=== PATIENT | male | born 1935 | race Two or more races ===

== ENCOUNTER 2019-03-09 23:29 | Emergency (ER) | payer MEDICARE, OTHER ==
[~2019-03-09] VITALS: Ht 170.2 cm; Wt 79.8 kg
[~2019-03-09 23:29] MED LIST: AMYL1CAP58 PO; CLOP75TA15 PO; DEXL60CA3 PO; DULO30CA2 PO; FLUT1DIS3 IH; MEMA21CA PO; SOLI10TA2 PO; TAMS0.4C34 PO; TIOT18CA3 IH; VALS160T2 PO
--- NOTE | 2019-03-09 23:35 | NUR ---
PT SUSANNAH FROM HOME FOR RIGHT FLANK PAIN X 2 DAYS. PT AOX3. FRENCH SPEAKING. NAD NOTED. RESP EVEN AND UNLABORED. PT ON MONITOR IN BED 4. WILL CONTINUE TO MONITOR.
[2019-03-10] MEDS ORDERED: ONDANSETRON HCL/PF 4 MG/2 ML VIAL IVP ONE
[2019-03-10] MEDS ORDERED: KETOROLAC TROMETHAMINE INJ 30 MG/ML VIAL IV ONE
[2019-03-10] MEDS ORDERED: IV NS 0.9% 500 ML BAG IV ONE
[2019-03-10] MEDS ORDERED: ONDANSETRON HCL/PF 4 MG/2 ML VIAL ONE (00:04)
[2019-03-10] MEDS ORDERED: KETOROLAC TROMETHAMINE 15 MG/ML VIAL ONE (00:04)
[2019-03-10] MEDS ORDERED: FAMOTIDINE/PF INJ 20 MG/2 ML VIAL IV ONE ×2 (00:04)
--- NOTE | 2019-03-10 00:05 | NUR ---
IV INITIATED. BLOOD DRAWN AND GIVEN TO LAB.
[2019-03-10 00:08] LABS: BASOPHILS % (AUTO) 0.2 % (0.0-2.0); EOSINOPHILS % (AUTO) 0.5 % (0.0-6.0); HEMATOCRIT 41 % (39-51); HEMOGLOBIN 13.9 g/dL (13.5-17.5); LYMPHOCYTES % (AUTO) 10.5 % (20.0-44.0); MEAN CORPUSCULAR HGB CONC 34 g/dl (31.0-36.0); MEAN CORPUSCULAR VOLUME 88 fL (80-96); MONOCYTES # (AUTO) 0.7 /CMM (0.1-1.30); MONOCYTES % (AUTO) 7.9 % (2.0-12.0); NEUTROPHILS # (AUTO) 7.6 /CMM (1.8-8.9); NEUTROPHILS % (AUTO) 80.9 % (43.0-81.0); PLATELET COUNT (AUTO) 131 /CMM (150-450); RED BLOOD CELL COUNT(AUTO) 4.68 MIL/uL (4.5-6.0); WHITE BLOOD COUNT (AUTO) 9.4 K/uL (4.3-11.0)
[2019-03-10 00:10] LABS: CALCIUM, SERUM 8.7 mg/dL (8.5-10.1); CARBON DIOXIDE 29 mmol/L (21-32); CHLORIDE 106 mmol/L (98-107); CREATININE 1.2 mg/dL (0.6-1.3); GLUCOSE 99 mg/dL (74-106); POTASSIUM 4.1 mmol/L (3.5-5.1); SODIUM SERUM 142 mmol/L (136-145); UREA NITROGEN, BLOOD 18 mg/dL (7-18)
[2019-03-10 00:15] LABS: ALANINE AMINOTRANSFERASE 14 U/L (12-78); ALBUMIN 3.3 g/dL (3.4-5.0); ALKALINE PHOSPHATASE 90 U/L (46-116); ASPARTATE AMINOTRANSFERASE 14 U/L (15-37); BILIRUBIN,DIRECT 0.1 mg/dL (0.0-0.2); BILIRUBIN,TOTAL 0.5 mg/dL (0.2-1.0); LIPASE 39 U/L (73-393); TOTAL PROTEIN, SERUM 6.6 g/dL (6.4-8.2)
[2019-03-10] MEDS ORDERED: IOHEXOL-300 100 ML VIAL IV ONE (00:19)
--- NOTE | 2019-03-10 01:22 | NUR ---
Patient is resting comfortably in bed with eyes closed. Easily aroused. VSS
[2019-03-10 01:28] VITALS: BP 128/62
[2019-03-10 02:03] LABS: APPEARANCE,URINE CLEAR (CLEAR); BILIRUBIN,URINE NEGATIVE (NEGATIVE); BLOOD, URINE 1+ Ery/uL (NEGATIVE); COLOR,URINE YELLOW (YELLOW); KETONES,URINE NEGATIVE (NEGATIVE); LEUKOCYTE ESTERASE ,URINE NEGATIVE (NEGATIVE); NITRITE, URINE NEGATIVE (NEGATIVE); PROTEIN,URINE NEGATIVE (NEGATIVE); UGLUCOSE NEGATIVE (NEGATIVE); UROBILINOGEN,URINE 0.2 EU/dL (0.2)
[2019-03-10 02:04] LABS: BACTERIA,URINE None seen /HPF (None Seen); SQUAMOUS EPITHELIAL CELL,UR Few /HPF (None Seen); WBC,URINE 0-2 /HPF (0-3)
--- NOTE | 2019-03-10 04:01 | NUR ---
IV removed. Catheter intact and site benign. Pressure and 4x4 applied to site. No bleeding noted.Patient discharged to home in stable condition. Written and verbal after care instructions given. Patient verbalizes understanding of instruction. PT AMBULATORY WITH STEADY GAIT. TAXI VOUCHER PROVIDED.
== END 2019-03-10 04:08 | disposition home or self-care (01) ==
LOC: ER 23:36
DX: N13.2 Hydronephrosis with renal and ureteral calculous obstruction (principal); I10 Essential (primary) hypertension; Z90.89 Acquired absence of other organs; Z98.890 Other specified postprocedural states; Z60.2 Problems related to living alone
CPT/HCPCS: 36415; 74177; 80048; 80076; 81001; 83605; 83690; 84484; 85025; 96374; 96375; 99284; J1885; J2405; J3490; J7040; Q9967; 81000-TC

== ENCOUNTER 2019-11-02 10:03 | Inpatient (IN) | payer MEDICARE, OTHER ==
[~2019-11-02] VITALS: Ht 165.1 cm; Wt 99.8 kg
--- NOTE | 2019-11-02 10:15 | NUR ---
patient came in to ther er [id number] from home c/o difficulty of breathing, 02 desat on room air. Recently dicharge from different hospital for kidney infection. Kept comfortable, connected to the monitor and pulse ox. Will continue to monitor accordingly.
[2019-11-02 10:33] LABS: BASOPHILS % (AUTO) 0.2 % (0.0-2.0); HEMATOCRIT 43 % (39-51); LYMPHOCYTES # (AUTO) 0.2 /CMM (0.8-4.8); LYMPHOCYTES % (AUTO) 2.5 % (20.0-44.0); MEAN CORPUSCULAR HGB CONC 33 g/dl (31.0-36.0); MEAN CORPUSCULAR VOLUME 88 fL (80-96); MONOCYTES # (AUTO) 0.5 /CMM (0.1-1.30); MONOCYTES % (AUTO) 5.3 % (2.0-12.0); NEUTROPHILS # (AUTO) 8.9 /CMM (1.8-8.9); PLATELET COUNT (AUTO) 266 /CMM (150-450); RED BLOOD CELL COUNT(AUTO) 4.85 MIL/uL (4.5-6.0); WHITE BLOOD COUNT (AUTO) 9.6 K/uL (4.3-11.0)
[2019-11-02 10:43] LABS: CALCIUM, SERUM 8.2 mg/dL (8.5-10.1); CARBON DIOXIDE 23 mmol/L (21-32); CHLORIDE 99 mmol/L (98-107); CREATININE 0.7 mg/dL (0.6-1.3); GLUCOSE 104 mg/dL (74-106); POTASSIUM 3.6 mmol/L (3.5-5.1); SODIUM SERUM 135 mmol/L (136-145); UREA NITROGEN, BLOOD 21 mg/dL (7-18)
[2019-11-02 10:57] LABS: ALANINE AMINOTRANSFERASE 24 U/L (12-78); ALBUMIN 1.9 g/dL (3.4-5.0); ALKALINE PHOSPHATASE 76 U/L (46-116); ASPARTATE AMINOTRANSFERASE 49 U/L (15-37); B-TYPE NATRIURETIC PEPTIDE 838 PG/ML (0-125); BILIRUBIN,DIRECT 0.2 mg/dL (0.0-0.2); BILIRUBIN,TOTAL 0.9 mg/dL (0.2-1.0); TOTAL PROTEIN, SERUM 6.8 g/dL (6.4-8.2)
[2019-11-02] MEDS ORDERED: CLOP75TA15 PO (11:00)
[2019-11-02] MEDS ORDERED: FLUT1DIS3 IH (11:00)
[2019-11-02] MEDS ORDERED: TAMS-12 PO (11:00)
[2019-11-02] MEDS ORDERED: ATOR10TA PO (11:00)
[2019-11-02] MEDS ORDERED: OLME5TAB6 PO (11:00)
--- NOTE | 2019-11-02 11:01 | NUR ---
DIRECTOR INSURANCE/MED RECON. PATIENT UNABLE TO PROVIDE COMPLETE HOME MEDICATION INFORMATION. PCP AND PHARMACY OF CHOICE ARE BOTH CLOSED ON THE WEEKEND. PER PATIENT "I LIVE ALONE, I DON'T TAKE ANY MEDICINE. ONLY ANTIBIOTIC". PATIENT UNALE TO PROVIDE ANY INFO RE: ANTIBIOTIC.
[2019-11-02 11:04] LABS: ABG BASE EXCESS 1.1 mmol/L; ABG OXYGEN SATURATION 91.3 % (92.0-98.5); ABG PCO2 28.6 mmHg (35.0-45.0); ABG PH 7.521 (7.350-7.450); ABG PO2 60.1 mmHg (75.0-100.0); AaDO2 192.2 mmHg; COHb 1.4 % (0.5-1.5); SITE, ABG Right Radial; VENT MODE, BG 5L NC
[2019-11-02] MEDS ORDERED: MAG HYDROX/AL HYDROX/SIMETH 30 ML UDC PO PRN (11:30)
[2019-11-02] MEDS ORDERED: ONDANSETRON HCL/PF 4 MG/2 ML VIAL IVP PRN (11:30)
[2019-11-02] MEDS ORDERED: MAGNESIUM HYDROXIDE 30 ML UDC PO PRN (11:30)
[2019-11-02] MEDS ORDERED: HYDROCODONE/APAP 5/325MG 1 EACH TABLET PO PRN (11:30)
[2019-11-02] MEDS ORDERED: ALBUTEROL SULFATE 8 GM HFA.AER.AD IH PRN (12:00)
[2019-11-02 13:06] LABS: C-REACTIVE PROTEIN 39.2 mg/dL (0.0-0.9)
--- NOTE | 2019-11-02 13:12 | NUR ---
NURSING SUP GAVE TELE ROOM 119-2.
--- NOTE | 2019-11-02 13:16 | NUR ---
report given to Estiven DOZIER for clementine.
--- NOTE | 2019-11-02 13:35 | NUR ---
wheeled patient via gurney accompanied by RN and emt in no distress. RN at bedside to assume care.
--- NOTE | 2019-11-02 13:55 | NUR ---
PODIATRY TEACHERWIRE WHEELER NOTE PATIENT ARRIVED BY GURCLEARWATER AND AMBULATORY WITH ASSISTANCE TO BED, WITH WEAK GAIT. PATIENT IN NO ACUTE DISTRESS. NO SOB NOTED. PATIENT BREATHING IS EVEN AND UNLABORED. PATIENT ON CARDIAC MONITORING READING SINUS TACHYCARDIA HR 84 WITH BBB AND PVC. PATIENT ON OXYGEN NC 5 L SATURATING 91% SPO2. PATIENT TEMPERATURE 99.2, TYLENOL PRN GIVEN AND IMPLEMENTED COOLING MEASURES. PATIENT BED ALARM IS ON. PATIENT ISOLATION PRECAUTIONS MAINTAINED. PATIENT STATES NO PAIN AT THIS TIME. PATIENT HOB IS ELEVATED. PATIENT BED IS LOCKED AND IN LOWEST POSITION. CALL LIGHT WITHIN REACH. WILL CONTINUE TO MONITOR. DR. QUIÑONEZ MADE AWARE AND ORDERS PUT IN BY . Addendum: 11/02/19 at 1857 by JANELLE BATES RN PODIATRY TEACHERWIRE WHEELER NOTE PATIENT ARRIVED BY RCLEARWATER AND AMBULATORY WITH ASSISTANCE TO BED, WITH WEAK GAIT. PATIENT IN NO ACUTE DISTRESS. NO SOB NOTED. PATIENT BREATHING IS EVEN AND UNLABORED. PATIENT ON CARDIAC MONITORING READING SINUS RHYTHM HR 84 WITH BBB AND PVC. PATIENT ON OXYGEN NC 5 L SATURATING 91% SPO2. PATIENT TEMPERATURE 99.2, TYLENOL PRN GIVEN AND IMPLEMENTED COOLING MEASURES. PATIENT BED ALARM IS ON. PATIENT ISOLATION PRECAUTIONS MAINTAINED. PATIENT STATES NO PAIN AT THIS TIME. PATIENT HOB IS ELEVATED. PATIENT BED IS LOCKED AND IN LOWEST POSITION. CALL LIGHT WITHIN REACH. WILL CONTINUE TO MONITOR. DR. QUIÑONEZ MADE AWARE AND ORDERS PUT IN BY .
[2019-11-02] MEDS: ACETAMINOPHEN 325 MG TABLET PO PRN (14:17)
[2019-11-02] MEDS: ATORVASTATIN 10 MG TABLET PO SCH (14:17)
[2019-11-02] MEDS: CLOPIDOGREL BISULFATE 75 MG TABLET PO SCH (14:17)
[2019-11-02] MEDS: AZITHROMYCIN 500 MG in IV D5W 250 ML IV SCH (14:59)
[2019-11-02] MEDS ORDERED: CEFTRIAXONE 1 G in IV D5W 50 ML IV SCH (15:00)
[2019-11-02 16:00] VITALS: BP 139/74
[2019-11-02] MEDS: FLUTICASONE/VILANTEROL 1 EACH BLST.W.DEV IH SCH (16:32)
[2019-11-02] MEDS ORDERED: CEFEPIME 1 GM in IV NS 0.9% 50 ML IV SCH (17:30)
--- NOTE | 2019-11-02 17:48 | NUR ---
TIMEKEEPING SUPERVISOR NOTE PER PHARMACY REQUESTING EKG, PATIENT WITHOUT BASELINE EKG. SPOKE WITH DR. QUIÑONEZ. PER MD DAVENPORT FOR NEW ORDER FOR EKG.
[2019-11-02] MEDS ORDERED: VANCOMYCIN 0.75 GM in IV D5W 250 ML IV ONE (18:00)
[2019-11-02] MEDS: HYDROXYCHLOROQUINE 200 MG TABLET PO SCH (18:19)
--- NOTE | 2019-11-02 18:49 | NUR ---
OCC THER CLOSING NOTE PATIENT IN BED RESTING COMFORTABLY. PATIENT IN NO ACUTE DISTRESS. NO SOB NOTED. PATIENT BREATHING IS EVEN AND UNLABORED. PATIENT BREATHING ON OXYGEN NC 5L SATURATING 92% SPO2. PATIENT ON CARDIAC MONITORING READING SINUS RHYTHM HR 89, WITH PVC AND BBB. PATIENT NEEDS AND CONCERNS ADDRESSED. PATIENT BED ALARM IS ON. PATIENT HOB IS ELEVATED. SAFETY PRECAUTIONS IN PLACE. ONCE VANCOMYCIN IS FINISHED INFUSING, ENDORSED FOR MEDTRONICS TECHNICIAN RN TO ADMINISTER MAXIPIME 1900 DOSE. PATIENT BED IS LOCKED AND IN LOWEST POSITION. CALL LIGHT WITHIN REACH. WILL ENDORSE CARE TO PM SHIFT FOR HAO.
[2019-11-02] MEDS ORDERED: FEE PK DOSING 1 MIN EA MC ONE (19:38)
--- NOTE | 2019-11-02 19:38 | NUR ---
TELE/RN OPENING NOTES PATIENT RESTING IN BED COMFORTABLY; BREATHING EVEN AND UNLABORED, PATIENT TOLERATING 5L NC. WILL CONTINUE TO MONITOR; TELE MONITOR READING SR 80S HR WITH BBB AND PVCS. R HAND #18 INTACT AND PATENT; FLUSHING WELL, NO S/S OF INFILTRATION NOTED; SAFETY PRECAUTIONS IMPLEMENTED; BED LOCKED IN LOW POSITION, SIDE RAILS X2, CALL LIGHT WITHIN REACH, WILL CONTINUE TO MONITOR
[2019-11-02 20:00] VITALS: BP 122/74
--- NOTE | 2019-11-02 20:06 | NUR ---
TELE/RN NOTES MAXIPIME DUE AT 1900, AWARE; PER DAY SHIFT, ADMIN MED AFTER VANCO IS COMPLETED
--- NOTE | 2019-11-02 20:30 | NUR ---
TELE/ RN NOTES URINE SPECIMEN COLLECTED; LAB AWARE;
[2019-11-02] MEDS: CEFEPIME 2 GM in IV D5W 100 ML IV SCH (20:31)
[2019-11-02 20:33] VITALS: BP 122/74
[2019-11-02] MEDS: TAMSULOSIN 0.4 MG CAP.SR.24H PO SCH (21:41)
[2019-11-03] VITALS (78 sets, daily range): BP systolic 58–163; BP diastolic 38–105
[2019-11-03 00:55] LABS: APPEARANCE,URINE CLEAR (CLEAR); BILIRUBIN,URINE NEGATIVE (NEGATIVE); BLOOD, URINE TRACE Ery/uL (NEGATIVE); COLOR,URINE YELLOW (YELLOW); KETONES,URINE 15 (NEGATIVE); LEUKOCYTE ESTERASE ,URINE NEGATIVE (NEGATIVE); NITRITE, URINE NEGATIVE (NEGATIVE); PH,URINE 6.5 (5.0-8.0); PROTEIN,URINE 100 mg/dl (NEGATIVE); UGLUCOSE NEGATIVE (NEGATIVE)
[2019-11-03 01:34] LABS: BACTERIA,URINE Few /HPF (None Seen); RBC,URINE 0-2 /HPF (0-2); SQUAMOUS EPITHELIAL CELL,UR Few /HPF (None Seen); WBC,URINE 0-2 /HPF (0-3); YEAST,URINE Few /HPF (None Seen)
--- NOTE | 2019-11-03 04:29 | NUR ---
TELE/RN NOTES PATIENT HAS SOB; BREATHING LABORED; ON 5L NC, PATIENT IS AWAKE, A/O X2, PATIENT REQUESTING JUICE/WATER. RAPID RESPONSE CALLED; OXYGEN SATURATION CONTINUOUSLY DROPPING AND UNSTABLE; 78%. STAT ABGS ORDERED; PATIENT TRANSFERRED TO ICU PER ACLS PROTOCOL TO ROOM 259, ACCOMPANIED BY [facility] STAFF AND REPORT GIVEN. Addendum: 11/03/19 at 0442 by JORGE GAVIN RN DOING ROUNDS AT 0400, NOTED PATIENT HAD SOB; BREATHING LABORED; PATIENT ON 5L NC, PATIENT IS AWAKE, A/OX2 AND REQUESTING WATER; VITALS STABLE; O2 SAT 78%, AND CONTINUALLY DROPPING; RAPID RESPONSE CALLED 404, ARTURO NOTIFIED; STAT ABGS ORDERED; PATIENT TRANSFERRED TO ICU VIA ACLS PROTOCOL AND ACCOMPANIED BY [facility] STAFF TO ROOM 259; CHARGE NURSE INFORMED FAMILY OF TRANSFER;
--- NOTE | 2019-11-03 04:45 | NUR ---
pt intubated by er physician due to increased work of breathing and decreased spo2. ett 7.5@24cm. pt alert and responsive to questions. ett secure via anchorfast. bilateral chest rise, positive color change, and mist in ett tube spo2 increased post intubation to 100% with ambu bag ventilation with bacterial/viral filter on exaltation port. pt placed on vent settings ac 20 450 80% +5. abg to follow. Addendum: 11/03/19 at 0525 by GUZMAN FRAZIER RT Amended: Links added.
[2019-11-03] MEDS: PROPOFOL 100 ML IV PRN ×4 (04:49→22:13)
--- NOTE | 2019-11-03 05:00 | NUR ---
NUCLEAR EQUIPMENT TEST ENGINEER OPENING NOTES, PATIENT CODED IN [facility] AND WAS TRANSFERRED TO ICU FOR INTUBATION, STRICTLY ON DROPLET PRECDAUTION FOR POSS. COVID. INTUBATED BY ER JAMES WARNER. WITH ETT 7.5 AND 25 CM AT LIP. AND VENT SETTING AC 20 TV 450 FIO2 80% AND PEEP 5. SATURATION 97%. STARTED PROPOFOL @5MCG/KG/MIN. PATIENT INSERTED BATISTA CATH TO GRAVITY YELLOW/CLEAR URINE. IV ON RIGHT HAND #18 AND STARTED IV ON LEFT FA#18 PATENT AND FLUSHING WELL. NO S/S OF INFILTRATION NOTED. PATIENT INITIATED ARIADNE. SOFT WRIST RESTRAINS FOR SAFETY MEASURES. WILL CONTINUE TO MONITOR.
[2019-11-03 06:00] LABS: ABG BASE EXCESS -3.3 mmol/L; ABG OXYGEN SATURATION 90.2 % (92.0-98.5); ABG PCO2 48.1 mmHg (35.0-45.0); ABG PH 7.305 (7.350-7.450); AaDO2 449.9 mmHg; COHb 0.8 % (0.5-1.5); MetHb 0.3 % (0.0-1.5); O2Hb 89.2 % (94.0-97.0); PEEP,BG 5 cm H2O; SITE, ABG Right Radial; VENT MODE, BG AC 20 450 80% +5; VT, ABG 450 mL
--- NOTE | 2019-11-03 06:00 | NUR ---
PATIENTS BP DROPPED AND LEVO DRIP STARTED AT 0.2MCG/KG/MIN
[2019-11-03] MEDS: VANCOMYCIN 500 MG in IV D5W 100 ML IV SCH ×2 (06:06→18:00)
[2019-11-03] MEDS ORDERED: NOREPINEPHRINE 8 MG in IV NS 0.9% 242 ML IV PRN ×4 (06:30)
[2019-11-03] MEDS: CEFEPIME 2 GM in IV D5W 100 ML IV SCH ×2 (07:08→18:24)
--- NOTE | 2019-11-03 07:40 | NUR ---
ICU/RN PT IS INTUBATED ON THE VENT AC MODE,FIO2-100%, PEEP-5.SAT O2-100%.SEDATED ON PROPOFOL.ON LEVOPHED DRIP.F/C IN PLACE WITH SMALL AMOUNT OF URINE OUTPUT.PERIFERAL IV.PT IS AGITATED.DIPRIVAN INCREASED ORDERED.CONTINUE MONITORING.
--- NOTE | 2019-11-03 08:04 | NUR ---
MATERIAL COMBINER CLOSING NOTES, PATIENT IS INTUBATION, WITH ETT 7.5 AND 25 CM AT LIP. AND VENT SETTING AC 20 TV 450 FIO2 80% AND PEEP 5. SATURATION 98%. STRICTLY ON DROPLET PRECAUTION FOR POSS. COVID 19. PROPOFOL @20MCG/KG/MIN IV ON RIGHT HAND #18 AND IV ON LEFT FA#18 PATENT AND FLUSHING WELL. LEVO DRIP @ 0.4 MCG/KG/MIN. TOLERATING WELL. NO S/S OF INFILTRATION NOTED. PATIENT INITIATED ARIADNE. SOFT WRIST RESTRAINS FOR SAFETY MEASURES. ENDORSED THE PATIENT TO AM RN FOR HAO.
[2019-11-03] MEDS: FLUTICASONE/VILANTEROL 1 EACH BLST.W.DEV IH SCH ×2 (09:00→16:05)
[2019-11-03] MEDS: HYDROXYCHLOROQUINE 200 MG TABLET PO SCH ×2 (09:21→16:23)
[2019-11-03] MEDS: CLOPIDOGREL BISULFATE 75 MG TABLET PO SCH (09:21)
[2019-11-03] MEDS: ATORVASTATIN 10 MG TABLET PO SCH (09:21)
[2019-11-03] MEDS: PANTOPRAZOLE 40 MG VIAL IV SCH (09:21)
[2019-11-03] MEDS: NOREPINEPHRINE 32 MG in IV NS 0.9% 218 ML IV PRN (11:38)
[2019-11-03 11:45] LABS: BASOPHILS % (AUTO) 0.3 % (0.0-2.0); EOSINOPHILS % (AUTO) 0.1 % (0.0-6.0); HEMATOCRIT 42 % (39-51); HEMOGLOBIN 13.7 g/dL (13.5-17.5); LYMPHOCYTES # (AUTO) 0.4 /CMM (0.8-4.8); LYMPHOCYTES % (AUTO) 2.6 % (20.0-44.0); MEAN CORPUSCULAR HGB CONC 32 g/dl (31.0-36.0); MEAN CORPUSCULAR VOLUME 88 fL (80-96); MONOCYTES # (AUTO) 0.7 /CMM (0.1-1.30); MONOCYTES % (AUTO) 5.4 % (2.0-12.0); NEUTROPHILS # (AUTO) 12.7 /CMM (1.8-8.9); NEUTROPHILS % (AUTO) 91.6 % (43.0-81.0); PLATELET COUNT (AUTO) 310 /CMM (150-450); RED BLOOD CELL COUNT(AUTO) 4.79 MIL/uL (4.5-6.0); WHITE BLOOD COUNT (AUTO) 13.9 K/uL (4.3-11.0)
[2019-11-03 12:36] LABS: CALCIUM, SERUM 8.3 mg/dL (8.5-10.1); CREATININE 1.2 mg/dL (0.6-1.3); MAGNESIUM 2.3 mg/dL (1.8-2.4); PHOSPHORUS 4.1 mg/dL (2.5-4.9); POTASSIUM 3.4 mmol/L (3.5-5.1)
--- NOTE | 2019-11-03 13:00 | NUR ---
ICU/RN TALK TO THE FAMILY EMILY-NEPHEW.(HE IS IN [place]) AND SON HE CALLED FROM [facility].PT IS FULL CODE AT THIS TIME. NOTIFIED.NEW ORDER RECEIVED.
[2019-11-03] MEDS: AZITHROMYCIN 500 MG in IV D5W 250 ML IV SCH (13:20)
--- NOTE | 2019-11-03 15:15 | NUR ---
ICU/RN RECEIVED CALL FROM LABORATORY .PT IS POSITIVE FOR COVID19.DR SANDERSON NOTIFIED. RIGHT UPPER ARM PICC LINE INSERTED ORDERED.
[2019-11-03] MEDS: Z GUARD REMEDY 2 OZ OINT TP PRN (16:23)
[2019-11-03] MEDS ORDERED: VANCOMYCIN 1 GM in IV D5W 250 ML IV ONE (18:30)
[2019-11-03] MEDS ORDERED: VANCOMYCIN 500 MG in IV D5W 100 ML IV ONE (19:00)
[2019-11-03] MEDS ORDERED: ETOMIDATE 2 MG/ML VIAL IV ONE (19:18)
[2019-11-03] MEDS ORDERED: FEE EMEERGENCY 1 MIN EA MC ONE (19:18)
[2019-11-03] MEDS ORDERED: ROCURONIUM BROMIDE 50 MG/5 ML IV ONE (19:18)
[2019-11-04] VITALS (91 sets, daily range): BP systolic 66–137; BP diastolic 45–77
[2019-11-04] MEDS: PROPOFOL 100 ML IV PRN ×5 (02:40→22:53)
[2019-11-04 04:28] LABS: BASOPHILS % (AUTO) 0.1 % (0.0-2.0); EOSINOPHILS % (AUTO) 0.1 % (0.0-6.0); HEMATOCRIT 40 % (39-51); HEMOGLOBIN 13.1 g/dL (13.5-17.5); LYMPHOCYTES # (AUTO) 0.5 /CMM (0.8-4.8); MEAN CORPUSCULAR HGB CONC 32 g/dl (31.0-36.0); MEAN CORPUSCULAR VOLUME 87 fL (80-96); MONOCYTES # (AUTO) 0.7 /CMM (0.1-1.30); MONOCYTES % (AUTO) 5.8 % (2.0-12.0); NEUTROPHILS # (AUTO) 11.3 /CMM (1.8-8.9); PLATELET COUNT (AUTO) 220 /CMM (150-450); RED BLOOD CELL COUNT(AUTO) 4.64 MIL/uL (4.5-6.0); WHITE BLOOD COUNT (AUTO) 12.5 K/uL (4.3-11.0)
[2019-11-04 04:38] LABS: CALCIUM, SERUM 8.1 mg/dL (8.5-10.1); CARBON DIOXIDE 27 mmol/L (21-32); CHLORIDE 102 mmol/L (98-107); CREATININE 1.5 mg/dL (0.6-1.3); GLUCOSE 138 mg/dL (74-106); MAGNESIUM 2.3 mg/dL (1.8-2.4); PHOSPHORUS 4.5 mg/dL (2.5-4.9); POTASSIUM 3.2 mmol/L (3.5-5.1); SODIUM SERUM 139 mmol/L (136-145); UREA NITROGEN, BLOOD 27 mg/dL (7-18)
[2019-11-04] MEDS: VANCOMYCIN 0.75 GM in IV D5W 250 ML IV SCH ×2 (05:49→17:10)
--- NOTE | 2019-11-04 07:00 | NUR ---
RN NOTES RECEIVED PT ON BED, INTUBATED AND SEDATED,TOLERATING CURRENT VENT SETTING WELL, WITH FIO2 OF 100% PEEP OF 10, LEVO RUNNING AT 0.3, DIPRIVAN AT 40 MCG/KG/MIN AND TKO RUNNING ON RIGHT UPPER ARM PICC LINE. NO DISTRESS NOTED, SATURATION AT 100%. RESTRAINT ASSESSED WITH CIRCULATION AND COLOR INTACT ALL SAFETY PRECAUTIONS APPLIED. BATISTA DRINING TO GRAVITY, NGT INTACT, RIGHT WRIST IV G 18 AND R UPPER ARM PICC LINE SITE CLEAN, DRY AND INTACT, SR UP x3, CALL LIGHT WITHIN EASY REACH, BED LOCKED AND IN LOWEST POSITION, CONTINUE TO MONITOR .
[2019-11-04] MEDS: CEFEPIME 2 GM in IV D5W 100 ML IV SCH ×2 (07:30→18:39)
--- NOTE | 2019-11-04 07:34 | NUR ---
icu/rn PATIENT CONTINUE SEDATION WITH INTUBATION. WITH FIO2 OF 100% PEEP OF 10. LEVO RUNNING AT 0.3, DIPRIVAN AT 40MCG/KG/MIN AND TKO RUNNING ON CANDIDO PICC LINE. NO SIGN OF ANY DISTRESS. SATURATION AT 100%. RESTRAINT ASSESSED WITH CIRCULATION AND COLOR INTACT ALL SAFETY PRECAUTIONS APPLIED. ENDORSED PATIENT TO MORNING SHIFT NURSE.
--- NOTE | 2019-11-04 07:59 | NUR ---
PATIENT REC'D ORALLY INTUBATED ON [facility] VENT WITH ORDERED SETTINGS. VENT ALARMS CHECKED AND AUDIBLE. CUFF CHECKED TRIM TECHNICIAN. PATIENT SX'D WITH SMALL AMT OF JUDD SEMITHICK SECRETIONS. ABD DONE. AMBU BAG AT [facility]. PATIENT SEDATED AND APPEARS COMFORTABLE. CONT CURRENT PLAN OF CARE. Addendum: 11/04/19 at 1206 by RAIMUNDO ALCANTAR RT Amended: Links added.
[2019-11-04] MEDS: FLUTICASONE/VILANTEROL 1 EACH BLST.W.DEV IH SCH ×2 (08:08→16:29)
[2019-11-04 08:16] LABS: BILIRUBIN,DIRECT 0.5 mg/dL (0.0-0.2); BILIRUBIN,TOTAL 0.8 mg/dL (0.2-1.0)
[2019-11-04 08:50] LABS: ABG BASE EXCESS -2.5 mmol/L; ABG OXYGEN SATURATION 98.5 % (92.0-98.5); ABG PCO2 46.9 mmHg (35.0-45.0); ABG PH 7.323 (7.350-7.450); ABG PO2 285.7 mmHg (75.0-100.0); AaDO2 380.4 mmHg; COHb 0.3 % (0.5-1.5); MetHb 0.4 % (0.0-1.5); O2Hb 97.8 % (94.0-97.0); PEEP,BG 10 cm H2O; SITE, ABG Right Radial; VT, ABG 450 mL
[2019-11-04] MEDS: HYDROXYCHLOROQUINE 200 MG TABLET PO SCH ×2 (09:21→16:53)
[2019-11-04] MEDS: CLOPIDOGREL BISULFATE 75 MG TABLET PO SCH (09:21)
[2019-11-04] MEDS: PANTOPRAZOLE 40 MG VIAL IV SCH (09:21)
[2019-11-04] MEDS: ATORVASTATIN 10 MG TABLET PO SCH (09:21)
--- NOTE | 2019-11-04 09:30 | NUR ---
RT PER DR SANDERSON ORDER PEEP INCREASED TO 12 AND FIO2 DECREASED TO 50%. RN NOTIFIED Addendum: 11/04/19 at 1203 by RAIMUNDO ALCANTAR RT Amended: Links added.
[2019-11-04] MEDS: POTASSIUM CL. PREMIX PERIPHER. 50 ML IV SCH ×4 (09:52→13:22)
--- NOTE | 2019-11-04 11:00 | NUR ---
RN NOTES ET TUBE SUCTIONING DONE, CONTINUE TO MONITOR .
[2019-11-04] MEDS: AZITHROMYCIN 500 MG in IV D5W 250 ML IV SCH (14:16)
--- NOTE | 2019-11-04 16:00 | NUR ---
RN NOTES HR IN 130'S, DR SANDERSON NOTIFED, NEW ORDER RECEIVED FOR VENT SETTING . CONTINUE TO MONITOR .
[2019-11-04] MEDS: IV D5/ 0.9% NACL 1,000 ML IV PRN (16:19)
--- NOTE | 2019-11-04 16:45 | NUR ---
PER DR SANDERSON PEEP LOWERED TO 10 Addendum: 11/04/19 at 1645 by RAIMUNDO ALCANTAR RT Amended: Links added.
--- NOTE | 2019-11-04 17:42 | NUR ---
PER DR MARIA E BARNETT ETT PUSHED IN 3CM AND SECURED AT 27CM Addendum: 11/04/19 at 1743 by RAIMUNDO ALCANTAR RT Amended: Links added.
[2019-11-04] MEDS: NOREPINEPHRINE 32 MG in IV NS 0.9% 218 ML IV PRN (18:44)
--- NOTE | 2019-11-04 18:45 | NUR ---
RN NOTES HR IN 110'S, PT ON LEVO AT .6 MCG/KG/MIN AND DIPRIVAN AT 40 MCG/KG/MIN AT THIS TIME, D5NS AT 50CC /HR RUNNING , BATISTA DRINING TO GRAVITY, SR UP x3, CALL LIGHT WITHIN EASY REACH, BED LOCKED AND IN LOWEST POSITION, WILL ENDORSE TO COMPUTER GAME DESIGNER NURSE FOR CONTINUITY OF CARE.
--- NOTE | 2019-11-04 19:40 | NUR ---
BOTTLING SUPERVISOR OPENING NOTES , RECEIVED PATIENT IN BED, INTUBATED AND SEDATED,TOLERATING CURRENT VENT SETTING WELL, WITH FIO2 OF 50% PEEP OF 10. PATIENT IS ISOLATED FOR POSITIVE COVID 19. LEVO RUNNING AT 0.5MCG/KG/MIN, DIPRIVAN AT 40 MCG/KG/MIN AND TKO RUNNING ON RIGHT UPPER ARM PICC LINE TOLERATING WELL. NO DISTRESS NOTED, SATURATION AT 99%. ON BILATERAL SOFT WRIST RESTRAINT. ALL SAFETY PRECAUTIONS APPLIED. BATISTA DRAINING TO GRAVITY, NGT INTACT, RIGHT WRIST AND LEFT AC IV 18G INTACT AND FLUSHING WELL. R UPPER ARM PICC LINE SITE CLEAN, DRY AND INTACT. SIDE RAILS UP X3, BED LOCKED AND IN LOWEST POSITION, WILL CONTINUE TO MONITOR .
--- NOTE | 2019-11-04 21:38 | NUR ---
RECEIVED PT INTUBATED 7.5 ETT @27CM LIP LINE RIGHT SIDE VIA ANCHOR FAST. PT TOLERATING VENT SETTINGS. SX'D FOR MOD AMT OF THIN WHITE SECRETIONS. ETT SECURE, CUFF ASSEMBLER MOLDED FRAMES. VENT PLUGGED INTO RED OUTLET. CONTINUE LICKING [facility] SUPPORT. Addendum: 11/04/19 at 2145 by FAISAL DEVLIN RT Amended: Links added.
[2019-11-04] MEDS: TAMSULOSIN 0.4 MG CAP.SR.24H PO SCH ×2 (22:57)
[2019-11-05] VITALS (94 sets, daily range): BP systolic 41–150; BP diastolic 27–90
[2019-11-05] MEDS: PROPOFOL 100 ML IV PRN ×4 (01:11→16:49)
[2019-11-05 04:35] LABS: BASOPHILS % (AUTO) 0.1 % (0.0-2.0); EOSINOPHILS % (AUTO) 0.3 % (0.0-6.0); HEMATOCRIT 40 % (39-51); HEMOGLOBIN 12.9 g/dL (13.5-17.5); LYMPHOCYTES # (AUTO) 0.8 /CMM (0.8-4.8); LYMPHOCYTES % (AUTO) 5.7 % (20.0-44.0); MEAN CORPUSCULAR HGB CONC 32 g/dl (31.0-36.0); MEAN CORPUSCULAR VOLUME 88 fL (80-96); MONOCYTES # (AUTO) 1.1 /CMM (0.1-1.30); MONOCYTES % (AUTO) 8.4 % (2.0-12.0); NEUTROPHILS # (AUTO) 11.5 /CMM (1.8-8.9); NEUTROPHILS % (AUTO) 85.5 % (43.0-81.0); PLATELET COUNT (AUTO) 227 /CMM (150-450); RED BLOOD CELL COUNT(AUTO) 4.57 MIL/uL (4.5-6.0); WHITE BLOOD COUNT (AUTO) 13.4 K/uL (4.3-11.0)
[2019-11-05 04:42] LABS: CALCIUM, SERUM 8.2 mg/dL (8.5-10.1); CARBON DIOXIDE 25 mmol/L (21-32); CHLORIDE 104 mmol/L (98-107); CREATININE 2.2 mg/dL (0.6-1.3); GLUCOSE 151 mg/dL (74-106); POTASSIUM 3.9 mmol/L (3.5-5.1); SODIUM SERUM 139 mmol/L (136-145); UREA NITROGEN, BLOOD 35 mg/dL (7-18)
[2019-11-05] MEDS: VANCOMYCIN 0.75 GM in IV D5W 250 ML IV SCH ×2 (05:38→23:23)
[2019-11-05] MEDS: CEFEPIME 2 GM in IV D5W 100 ML IV SCH ×2 (06:41→19:37)
--- NOTE | 2019-11-05 07:03 | NUR ---
STUFFED CASING TIER CLOSING NOTES , PATIENT IS INTUBATED AND SEDATED,TOLERATING CURRENT VENT SETTING WELL, WITH FIO2 OF 50% PEEP OF 10. PATIENT IS ISOLATED FOR POSITIVE COVID 19. LEVO RUNNING AT 0.4MCG/KG/MIN, DIPRIVAN AT 35 MCG/KG/MIN, TOLERATING WELL. NO DISTRESS NOTED, SATURATION AT 98%. ON BILATERAL SOFT WRIST RESTRAINT. ALL SAFETY PRECAUTIONS APPLIED. BATISTA DRAINING TO GRAVITY, NGT INTACT, RIGHT WRIST IV #18 AND LEFT AC IV 18G INTACT AND FLUSHING WELL. R UPPER ARM PICC LINE SITE CLEAN, DRY AND INTACT DRESSING CHANGED. SIDE RAILS UP X3, BED LOCKED AND IN LOWEST POSITION, WILL ENDORSE THE PATIENT TO AM RN FOR HAO. Addendum: 11/07/19 at 0739 by ADELINA RANDOLPH RN CORRECTION: OFF BILATERAL RESTRAINTS
[2019-11-05] MEDS: FLUTICASONE/VILANTEROL 1 EACH BLST.W.DEV IH SCH ×2 (08:42→16:47)
[2019-11-05] MEDS: ATORVASTATIN 10 MG TABLET PO SCH (09:46)
[2019-11-05] MEDS: PANTOPRAZOLE 40 MG VIAL IV SCH (09:46)
[2019-11-05] MEDS: CLOPIDOGREL BISULFATE 75 MG TABLET PO SCH (09:47)
[2019-11-05] MEDS: HYDROXYCHLOROQUINE 200 MG TABLET PO SCH ×2 (09:47→16:58)
[2019-11-05] MEDS: NOREPINEPHRINE 32 MG in IV NS 0.9% 218 ML IV PRN ×2 (12:10→12:14)
[2019-11-05 13:53] LABS: ABG OXYGEN SATURATION 94.8 % (92.0-98.5); ABG PCO2 42.5 mmHg (35.0-45.0); ABG PH 7.445 (7.350-7.450); ABG PO2 77.4 mmHg (75.0-100.0); AaDO2 231.3 mmHg; COHb 0.3 % (0.5-1.5); MetHb 0.6 % (0.0-1.5); O2Hb 93.9 % (94.0-97.0); SITE, ABG Right Radial; VENT MODE, BG AC 14 500 50% +12
[2019-11-05] MEDS ORDERED: PHENYLEPHRINE 50 MG in IV NS 0.9% 245 ML IV PRN (15:00)
[2019-11-05] MEDS ORDERED: IV NS 0.9% 500 ML IV ONE ×2 (15:00→17:00)
[2019-11-05] MEDS: AZITHROMYCIN 500 MG in IV D5W 250 ML IV SCH (15:31)
[2019-11-05] MEDS ORDERED: PHENYLEPHRINE 100 MG in IV NS 0.9% 240 ML IV PRN (18:30)
[2019-11-05] MEDS: IV D5/ 0.9% NACL 1,000 ML IV PRN (19:03)
[2019-11-05] MEDS: PHENYLEPHRINE 100 MG in IV NS 0.9% 240 ML IV PRN (19:31)
[2019-11-05] MEDS: TAMSULOSIN 0.4 MG CAP.SR.24H PO SCH (23:19)
[2019-11-06] VITALS (96 sets, daily range): BP systolic 67–134; BP diastolic 39–76
[2019-11-06] MEDS: PROPOFOL 100 ML IV PRN ×3 (01:40→16:07)
[2019-11-06] MEDS: PHENYLEPHRINE 100 MG in IV NS 0.9% 240 ML IV PRN ×3 (03:01→18:14)
[2019-11-06] MEDS: ACETAMINOPHEN 325 MG TABLET PO PRN (04:31)
[2019-11-06 05:03] LABS: BASOPHILS % (AUTO) 0.2 % (0.0-2.0); EOSINOPHILS % (AUTO) 0.3 % (0.0-6.0); HEMATOCRIT 36 % (39-51); HEMOGLOBIN 11.4 g/dL (13.5-17.5); LYMPHOCYTES # (AUTO) 0.5 /CMM (0.8-4.8); LYMPHOCYTES % (AUTO) 3.5 % (20.0-44.0); MEAN CORPUSCULAR HGB CONC 32 g/dl (31.0-36.0); MEAN CORPUSCULAR VOLUME 88 fL (80-96); MONOCYTES # (AUTO) 1.2 /CMM (0.1-1.30); MONOCYTES % (AUTO) 8.1 % (2.0-12.0); NEUTROPHILS # (AUTO) 13.3 /CMM (1.8-8.9); NEUTROPHILS % (AUTO) 87.9 % (43.0-81.0); PLATELET COUNT (AUTO) 169 /CMM (150-450); RED BLOOD CELL COUNT(AUTO) 4.05 MIL/uL (4.5-6.0); WHITE BLOOD COUNT (AUTO) 15.1 K/uL (4.3-11.0)
[2019-11-06 05:10] LABS: CALCIUM, SERUM 7.7 mg/dL (8.5-10.1); CARBON DIOXIDE 22 mmol/L (21-32); CHLORIDE 106 mmol/L (98-107); CREATININE 2.9 mg/dL (0.6-1.3); GLUCOSE 95 mg/dL (74-106); POTASSIUM 3.8 mmol/L (3.5-5.1); SODIUM SERUM 140 mmol/L (136-145); UREA NITROGEN, BLOOD 42 mg/dL (7-18)
[2019-11-06] MEDS: CEFEPIME 2 GM in IV D5W 100 ML IV SCH ×2 (07:04→20:38)
[2019-11-06] MEDS: NOREPINEPHRINE 32 MG in IV NS 0.9% 218 ML IV PRN (08:17)
[2019-11-06] MEDS: FLUTICASONE/VILANTEROL 1 EACH BLST.W.DEV IH SCH (08:38)
[2019-11-06 08:45] LABS: ABG BASE EXCESS -8.4 mmol/L; ABG PCO2 38.5 mmHg (35.0-45.0); ABG PO2 84.6 mmHg (75.0-100.0); AaDO2 445.4 mmHg; COHb 0.6 % (0.5-1.5); MetHb 0.2 % (0.0-1.5); O2Hb 94.2 % (94.0-97.0); PEEP,BG 5 cm H2O; SITE, ABG Right Radial; VT, ABG 450 mL
[2019-11-06] MEDS: PANTOPRAZOLE 40 MG VIAL IV SCH (09:51)
[2019-11-06] MEDS: CLOPIDOGREL BISULFATE 75 MG TABLET PO SCH (09:52)
[2019-11-06] MEDS: HYDROXYCHLOROQUINE 200 MG TABLET PO SCH ×2 (09:52→18:03)
[2019-11-06] MEDS ORDERED: VANCOMYCIN 1 GM in IV D5W 250 ML IV ONE (11:00)
[2019-11-06] MEDS: AZITHROMYCIN 500 MG in IV D5W 250 ML IV SCH (16:07)
[2019-11-06] MEDS: VANCOMYCIN 0.75 GM in IV D5W 250 ML IV SCH (18:02)
[2019-11-06] MEDS: IV D5/ 0.9% NACL 1,000 ML IV PRN (18:30)
--- NOTE | 2019-11-06 19:10 | NUR ---
RN OPENING NOTE: PATIENT IN BED, INTUBATED AND SEDATED, TOLERATING CURRENT VENT SETTINGS WELL. ON ISOLATION FOR POSITIVE COVID 19. NO S/S OF PAIN. NO FACIAL GRIMACING. NO SOB. ON BILATERAL SOFT WRIST RESTRAINTS ORDERED. SAFETY PRECAUTIONS IMPLEMENTED. BED LOCKED AND LOW POSITION. SINUS TACHY ON MONITOR. RIGHT WRIST IV G18, LEFT AC IV G18, AND CANDIDO PICC LINE C/D/I. FLUSHING WELL. ON LEVO AND LAMONTE, WILL TITRATE PER PROTOCOL. BATISTA CATH INTACT AND PATENT, DRAINING CLEAR YELLOW URINE. CALL LIGHT WITHIN REACH. WILL CONT. TO MONITOR.
[2019-11-06] MEDS: TAMSULOSIN 0.4 MG CAP.SR.24H PO SCH (21:24)
[2019-11-07] VITALS (96 sets, daily range): BP systolic 81–119; BP diastolic 49–67
[2019-11-07] MEDS: PHENYLEPHRINE 100 MG in IV NS 0.9% 240 ML IV PRN ×4 (01:29→23:00)
[2019-11-07] MEDS: PROPOFOL 100 ML IV PRN ×2 (04:53→18:44)
[2019-11-07 04:55] LABS: BASOPHILS % (AUTO) 0.4 % (0.0-2.0); HEMATOCRIT 35 % (39-51); HEMOGLOBIN 11.7 g/dL (13.5-17.5); LYMPHOCYTES # (AUTO) 0.4 /CMM (0.8-4.8); LYMPHOCYTES % (AUTO) 6.5 % (20.0-44.0); MEAN CORPUSCULAR HGB CONC 34 g/dl (31.0-36.0); MEAN CORPUSCULAR VOLUME 95 fL (80-96); MONOCYTES # (AUTO) 0.2 /CMM (0.1-1.30); MONOCYTES % (AUTO) 3.6 % (2.0-12.0); NEUTROPHILS # (AUTO) 5.6 /CMM (1.8-8.9); NEUTROPHILS % (AUTO) 88.5 % (43.0-81.0); PLATELET COUNT (AUTO) 134 /CMM (150-450); RED BLOOD CELL COUNT(AUTO) 3.65 MIL/uL (4.5-6.0); WHITE BLOOD COUNT (AUTO) 6.3 K/uL (4.3-11.0)
[2019-11-07 05:08] LABS: CREATININE 1.1 mg/dL (0.6-1.3); POTASSIUM 3.6 mmol/L (3.5-5.1)
[2019-11-07] MEDS: CEFEPIME 2 GM in IV D5W 100 ML IV SCH ×2 (06:57→18:43)
--- NOTE | 2019-11-07 07:35 | NUR ---
RN CLOSING NOTE: PATIENT IN NO ACUTE DISTRESS DURING SHIFT. TURNED AND REPOSITIONED. KEPT CLEAN AND COMFORTABLE. SAFETY PRECAUTIONS HAVE BEEN IMPLEMENTED. ENDORSED TO AM SHIFT NURSE FOR CONTINUITY OF CARE.
[2019-11-07] MEDS: HYDROXYCHLOROQUINE 200 MG TABLET PO SCH ×2 (09:53→18:43)
[2019-11-07] MEDS: CLOPIDOGREL BISULFATE 75 MG TABLET PO SCH (09:53)
[2019-11-07] MEDS: PANTOPRAZOLE 40 MG VIAL IV SCH (09:53)
[2019-11-07 10:14] LABS: ABG BASE EXCESS -9.2 mmol/L; ABG OXYGEN SATURATION 97.1 % (92.0-98.5); ABG PCO2 35.4 mmHg (35.0-45.0); ABG PH 7.286 (7.350-7.450); AaDO2 418.2 mmHg; COHb 0.9 % (0.5-1.5); MetHb 0.3 % (0.0-1.5); O2Hb 95.9 % (94.0-97.0); SITE, ABG Right Radial
--- NOTE | 2019-11-07 11:04 | NUR ---
PTS SON NICOLE LUX IN [place], [place] CALLED, SPOKE TO FIRST EMILY RN THEN TOBI RN IN [place] TO BOTH RNS. NICOLE, SON WISHES FOR PATIENT TO NOT BE RESUSCITATED AND TO CHANGE CODE STATUS TO DO NOT RESUSCITATE. DR. SANDERSON NOTIFIED.
[2019-11-07 11:26] LABS: CALCIUM, SERUM 7.6 mg/dL (8.5-10.1); CARBON DIOXIDE 20 mmol/L (21-32); CHLORIDE 110 mmol/L (98-107); CREATININE 3.7 mg/dL (0.6-1.3); GLUCOSE 79 mg/dL (74-106); POTASSIUM 4.2 mmol/L (3.5-5.1); SODIUM SERUM 143 mmol/L (136-145); UREA NITROGEN, BLOOD 53 mg/dL (7-18)
[2019-11-07 12:22] LABS: BASOPHILS # (AUTO) 0.1 /CMM (0.0-0.2); BASOPHILS % (AUTO) 0.3 % (0.0-2.0); HEMATOCRIT 35 % (39-51); HEMOGLOBIN 11.2 g/dL (13.5-17.5); LYMPHOCYTES # (AUTO) 0.3 /CMM (0.8-4.8); LYMPHOCYTES % (AUTO) 1.6 % (20.0-44.0); MEAN CORPUSCULAR HGB CONC 32 g/dl (31.0-36.0); MEAN CORPUSCULAR VOLUME 89 fL (80-96); MONOCYTES # (AUTO) 1.2 /CMM (0.1-1.30); MONOCYTES % (AUTO) 6.1 % (2.0-12.0); NEUTROPHILS # (AUTO) 18.7 /CMM (1.8-8.9); PLATELET COUNT (AUTO) 113 /CMM (150-450); RED BLOOD CELL COUNT(AUTO) 3.98 MIL/uL (4.5-6.0); WHITE BLOOD COUNT (AUTO) 20.4 K/uL (4.3-11.0)
[2019-11-07] MEDS: VANCOMYCIN 0.75 GM in IV D5W 250 ML IV SCH (12:56)
[2019-11-07] MEDS: AZITHROMYCIN 500 MG in IV D5W 250 ML IV SCH (15:15)
[2019-11-07] MEDS: MEROPENEM 500 MG in IV NS 0.9% 50 ML IV SCH (20:58)
[2019-11-07] MEDS: MICAFUNGIN SODIUM 100 MG in IV NS 0.9% 100 ML IV SCH (21:55)
[2019-11-07] MEDS: TAMSULOSIN 0.4 MG CAP.SR.24H PO SCH (21:55)
[2019-11-07] MEDS: IV D5/ 0.9% NACL 1,000 ML IV PRN (23:51)
[2019-11-08] VITALS (97 sets, daily range): BP systolic 75–146; BP diastolic 45–77
--- NOTE | 2019-11-08 01:33 | NUR ---
RN NOTE: PATIENT'S BP 85/45, HR 114. NOTIFIED JULY BUCIO NP OF SUSTAINED LOW BP. RECEIVED ORDER FOR LAMONTE DRIP. CHARGE NURSE AWARE.
[2019-11-08 06:03] LABS: BASOPHILS # (AUTO) 0.2 /CMM (0.0-0.2); BASOPHILS % (AUTO) 1.2 % (0.0-2.0); HEMATOCRIT 35 % (39-51); HEMOGLOBIN 11.2 g/dL (13.5-17.5); LYMPHOCYTES # (AUTO) 0.2 /CMM (0.8-4.8); LYMPHOCYTES % (AUTO) 1.2 % (20.0-44.0); MEAN CORPUSCULAR HGB CONC 32 g/dl (31.0-36.0); MEAN CORPUSCULAR VOLUME 89 fL (80-96); MONOCYTES % (AUTO) 4.9 % (2.0-12.0); NEUTROPHILS # (AUTO) 18.2 /CMM (1.8-8.9); NEUTROPHILS % (AUTO) 92.7 % (43.0-81.0); PLATELET COUNT (AUTO) 125 /CMM (150-450); RED BLOOD CELL COUNT(AUTO) 3.94 MIL/uL (4.5-6.0); WHITE BLOOD COUNT (AUTO) 19.7 K/uL (4.3-11.0)
[2019-11-08 06:06] LABS: CALCIUM, SERUM 7.8 mg/dL (8.5-10.1); CARBON DIOXIDE 18 mmol/L (21-32); CHLORIDE 105 mmol/L (98-107); CREATININE 4.1 mg/dL (0.6-1.3); GLUCOSE 239 mg/dL (74-106); MAGNESIUM 2.5 mg/dL (1.8-2.4); PHOSPHORUS 7.1 mg/dL (2.5-4.9); POTASSIUM 4.5 mmol/L (3.5-5.1); SODIUM SERUM 137 mmol/L (136-145); UREA NITROGEN, BLOOD 67 mg/dL (7-18)
[2019-11-08] MEDS: PHENYLEPHRINE 100 MG in IV NS 0.9% 240 ML IV PRN ×3 (06:20→20:49)
[2019-11-08] MEDS: PROPOFOL 100 ML IV PRN ×2 (06:23→19:10)
--- NOTE | 2019-11-08 07:46 | NUR ---
RN CLOSING NOTE: PATIENT IN NO ACUTE DISTRESS DURING SHIFT. TURNED AND REPOSITIONED. KEPT CLEAN AND COMFORTABLE. SAFETY PRECAUTIONS HAVE BEEN IMPLEMENTED. NOTIFIED DR. SANDERSON OF ABG RESULT. ENDORSED TO AM SHIFT NURSE FOR CONTINUITY OF CARE.
[2019-11-08] MEDS: PANTOPRAZOLE 40 MG VIAL IV SCH (10:32)
[2019-11-08] MEDS: MEROPENEM 500 MG in IV NS 0.9% 50 ML IV SCH ×2 (10:32→21:54)
[2019-11-08] MEDS: HYDROXYCHLOROQUINE 200 MG TABLET PO SCH ×2 (10:33→18:43)
[2019-11-08] MEDS: CLOPIDOGREL BISULFATE 75 MG TABLET PO SCH (10:33)
[2019-11-08] MEDS ORDERED: SEVELAMER CARBONATE 0.8 GM POWD.PACK GT SCH (13:00)
[2019-11-08] MEDS: SEVELAMER CARBONATE 0.8 GM POWD.PACK GT SCH (18:43)
[2019-11-08] MEDS: AZITHROMYCIN 500 MG in IV D5W 250 ML IV SCH (18:44)
[2019-11-08] MEDS: NOREPINEPHRINE 32 MG in IV NS 0.9% 218 ML IV PRN (19:10)
--- NOTE | 2019-11-08 20:17 | NUR ---
RT NOTE PT RECEIVED TRACHED ON MECHANICAL VENTILATION INTUBATED WITH 7.5 ET TUBE @ 27 CM. SX DONE, SMALL THICK WHITE YELLOW SECRETIONS NOTED. ALARMS ON AND AUDIBLE. VENT PLUGGED TO RED OUTLET. NO DISTRESS NOTED AT THIS TIME. HME CHANGED. WILL MONITOR T/O SHIFT. Addendum: 11/08/19 at 2019 by PRERNA CEBALLOS RT Amended: Links added.
[2019-11-08] MEDS: VANCOMYCIN 0.75 GM in IV D5W 250 ML IV SCH (20:32)
[2019-11-08] MEDS: TAMSULOSIN 0.4 MG CAP.SR.24H PO SCH (21:05)
[2019-11-08] MEDS: IV D5/ 0.9% NACL 1,000 ML IV PRN (21:09)
[2019-11-08] MEDS: MICAFUNGIN SODIUM 100 MG in IV NS 0.9% 100 ML IV SCH (22:35)
[2019-11-09] VITALS (94 sets, daily range): BP systolic 75–145; BP diastolic 45–75
[2019-11-09] MEDS: SEVELAMER CARBONATE 0.8 GM POWD.PACK GT SCH ×3 (01:03→20:09)
[2019-11-09] MEDS: PHENYLEPHRINE 100 MG in IV NS 0.9% 240 ML IV PRN ×3 (03:23→22:55)
[2019-11-09 05:04] LABS: BASOPHILS % (AUTO) 0.2 % (0.0-2.0); HEMATOCRIT 35 % (39-51); HEMOGLOBIN 11.3 g/dL (13.5-17.5); LYMPHOCYTES # (AUTO) 0.5 /CMM (0.8-4.8); LYMPHOCYTES % (AUTO) 2.3 % (20.0-44.0); MEAN CORPUSCULAR HGB CONC 33 g/dl (31.0-36.0); MEAN CORPUSCULAR VOLUME 87 fL (80-96); MONOCYTES # (AUTO) 1.3 /CMM (0.1-1.30); MONOCYTES % (AUTO) 6.5 % (2.0-12.0); NEUTROPHILS # (AUTO) 18.2 /CMM (1.8-8.9); PLATELET COUNT (AUTO) 124 /CMM (150-450); RED BLOOD CELL COUNT(AUTO) 4.02 MIL/uL (4.5-6.0)
[2019-11-09] MEDS: PROPOFOL 100 ML IV PRN ×2 (05:48→17:01)
--- NOTE | 2019-11-09 05:58 | NUR ---
RT NOTE END OF SHIFT: PT TOLERATED 70% WELL T/O SHIFT. HME CHANGED. ET TUBE MOVED TO LEFT. NO DISTRESS NOTED. ALARMS ON AND AUDIBLE. Addendum: 11/09/19 at 0559 by PRERNA CEBALLOS RT Amended: Links added.
[2019-11-09] MEDS: MEROPENEM 500 MG in IV NS 0.9% 50 ML IV SCH ×2 (08:00→20:12)
[2019-11-09 08:41] LABS: ABG BASE EXCESS -8.2 mmol/L; ABG OXYGEN SATURATION 94.6 % (92.0-98.5); ABG PCO2 40.3 mmHg (35.0-45.0); ABG PH 7.272 (7.350-7.450); ABG PO2 85.7 mmHg (75.0-100.0); AaDO2 370.1 mmHg; COHb 0.6 % (0.5-1.5); MetHb 0.1 % (0.0-1.5); O2Hb 93.9 % (94.0-97.0); SITE, ABG Left Brachial; VENT MODE, BG AC 20 500 70% +5
[2019-11-09] MEDS: HYDROXYCHLOROQUINE 200 MG TABLET PO SCH ×2 (09:44→20:09)
[2019-11-09] MEDS: PANTOPRAZOLE 40 MG VIAL IV SCH (09:44)
[2019-11-09] MEDS: CLOPIDOGREL BISULFATE 75 MG TABLET PO SCH (09:44)
[2019-11-09] MEDS: AZITHROMYCIN 500 MG in IV D5W 250 ML IV SCH (14:00)
--- NOTE | 2019-11-09 17:46 | NUR ---
RT NOTE: PATIENT RECEIVED ORALLY INTUBATED WITH 7.5 ETT SECURED AT 27 CM MID LIP LINE ON PB 840 VENT. VENT CHANGES MADE PER MD ORDER. ALARMS VERIFIED AND AUDIBLE. VENT PLUGGED INTO RED OUTLET. AMBU BAG AT [facility].
[2019-11-09] MEDS: VANCOMYCIN 0.75 GM in IV D5W 250 ML IV SCH (20:30)
[2019-11-09] MEDS: MICAFUNGIN SODIUM 100 MG in IV NS 0.9% 100 ML IV SCH (21:04)
[2019-11-09] MEDS: IV D5/ 0.9% NACL 1,000 ML IV PRN (21:20)
[2019-11-09] MEDS: TAMSULOSIN 0.4 MG CAP.SR.24H PO SCH (22:07)
[2019-11-10] VITALS (99 sets, daily range): BP systolic 59–155; BP diastolic 34–84
--- NOTE | 2019-11-10 | NUR ---
HD completed, vss, pt tolerated well, 475 ml out
[2019-11-10] MEDS: SEVELAMER CARBONATE 0.8 GM POWD.PACK GT SCH ×3 (01:58→18:13)
[2019-11-10] MEDS: PROPOFOL 100 ML IV PRN ×3 (03:35→23:27)
[2019-11-10 05:17] LABS: BASOPHILS # (AUTO) 0.1 /CMM (0.0-0.2); BASOPHILS % (AUTO) 0.5 % (0.0-2.0); EOSINOPHILS % (AUTO) 0.3 % (0.0-6.0); HEMATOCRIT 31 % (39-51); HEMOGLOBIN 10.2 g/dL (13.5-17.5); LYMPHOCYTES # (AUTO) 0.5 /CMM (0.8-4.8); LYMPHOCYTES % (AUTO) 2.2 % (20.0-44.0); MEAN CORPUSCULAR HGB CONC 33 g/dl (31.0-36.0); MEAN CORPUSCULAR VOLUME 87 fL (80-96); MONOCYTES # (AUTO) 1.5 /CMM (0.1-1.30); MONOCYTES % (AUTO) 6.9 % (2.0-12.0); NEUTROPHILS % (AUTO) 90.1 % (43.0-81.0); PLATELET COUNT (AUTO) 101 /CMM (150-450); RED BLOOD CELL COUNT(AUTO) 3.59 MIL/uL (4.5-6.0); WHITE BLOOD COUNT (AUTO) 22.2 K/uL (4.3-11.0)
[2019-11-10 05:27] LABS: CALCIUM, SERUM 8.1 mg/dL (8.5-10.1); CARBON DIOXIDE 24 mmol/L (21-32); CHLORIDE 108 mmol/L (98-107); CREATININE 3.4 mg/dL (0.6-1.3); GLUCOSE 93 mg/dL (74-106); POTASSIUM 3.9 mmol/L (3.5-5.1); SODIUM SERUM 141 mmol/L (136-145); UREA NITROGEN, BLOOD 62 mg/dL (7-18)
[2019-11-10 08:29] LABS: ABG BASE EXCESS -4.2 mmol/L; ABG OXYGEN SATURATION 94.3 % (92.0-98.5); ABG PH 7.407 (7.350-7.450); ABG PO2 76.2 mmHg (75.0-100.0); AaDO2 316.4 mmHg; COHb 0.8 % (0.5-1.5); MetHb 0.3 % (0.0-1.5); O2Hb 93.3 % (94.0-97.0); SITE, ABG Right Radial; VENT MODE, BG AC 28 500 60% +5
[2019-11-10] MEDS: MEROPENEM 500 MG in IV NS 0.9% 50 ML IV SCH ×2 (08:35→19:48)
[2019-11-10] MEDS: PANTOPRAZOLE 40 MG VIAL IV SCH (08:35)
[2019-11-10] MEDS: HYDROXYCHLOROQUINE 200 MG TABLET PO SCH ×2 (08:35→18:13)
[2019-11-10] MEDS: CLOPIDOGREL BISULFATE 75 MG TABLET PO SCH (08:36)
[2019-11-10] MEDS: AZITHROMYCIN 500 MG in IV D5W 250 ML IV SCH (13:59)
[2019-11-10] MEDS: IV D5/ 0.9% NACL 1,000 ML IV PRN (15:33)
[2019-11-10] MEDS: PHENYLEPHRINE 100 MG in IV NS 0.9% 240 ML IV PRN (18:14)
--- NOTE | 2019-11-10 18:50 | NUR ---
agricultural appraiser closing notes pt condition still remains gaurded on pressor and propofol unable to wean off, no distress noted during recovery bed bath given, no distress noted during recovery picc line, yusuf intact pt is intubated settings checked safety measures taken report given to pm nurse for continuity of care.
--- NOTE | 2019-11-10 19:10 | NUR ---
CHAIN SALES REPRESENTATIVE NOTE RECEIVED PATIENT IN BED, WITH HOB ELEVATED. ON DIPRIVAN DRIP 20 MCG/KG/MIN, SEDATED. AROUSABLE TO LIGHT PAIN. DX OF POSITIVE COVID. ON NEOSYNEPHERINE @ 1 MCG/KG/MIN. PICC LINE ON CANDIDO, PATENT. BREATHING EVEN AND NON LABORED. NO SOB NOTED AT THIS TIME. VENT DEPENDANT. NGT CLAMMPED. NPO. BED IS LOWERED TO LOW POSITION FOR SAFETY. WILL CONTINUE TO MONITOR.
[2019-11-10] MEDS: VANCOMYCIN 0.75 GM in IV D5W 250 ML IV SCH (21:00)
--- NOTE | 2019-11-10 21:00 | NUR ---
ART GALLERY DIRECTOR VANCO TROUGH LEVEL IS 21 AT THIS TIME. VANCO IV MED HELD. WILL CONTINUE TO MONITOR.
[2019-11-10] MEDS: MICAFUNGIN SODIUM 100 MG in IV NS 0.9% 100 ML IV SCH (21:21)
[2019-11-10] MEDS: TAMSULOSIN 0.4 MG CAP.SR.24H PO SCH (22:13)
[2019-11-11] VITALS (65 sets, daily range): BP systolic 84–167; BP diastolic 27–71
[2019-11-11] MEDS: SEVELAMER CARBONATE 0.8 GM POWD.PACK GT SCH ×3 (02:07→17:02)
--- NOTE | 2019-11-11 03:00 | NUR ---
QA INTERN NOTE PATIENT TOLERATED BED BATH AROUND THIS TIME. NO BM NOTED AT THIS TIME. IN NO APPARENT DISTRESS NOTED. WILL CONTINUE TO MONITOR.
[2019-11-11] MEDS: PHENYLEPHRINE 100 MG in IV NS 0.9% 240 ML IV PRN (06:14)
--- NOTE | 2019-11-11 06:43 | NUR ---
DESIGN TECHNOLOGY PROFESSOR NOTE PATIENT IS IN BED RESTING WITH HOB ELEVATED. BREATHING EVEN AND NON LABORED. NO SOB NOTED AT THIS TIME. PATIENT IS SEDATED, ON DIPRIVAN DRIP RUNNING AT 20 MCG/KG/MIN. EASILY AROUSABLE, RESPONSIVE TO LOCALIZED PAIN. ON NEOSYNEPHRINE RUNNING AT 1 MCG/KG/MIN. ALL DUE MEDS GIVEN AND TOLERATED WELL. VANCO IV HELD PER VANCO THROUGH IS 21. ON BATISTA, URINE CLEAR, YELLOW IN COLOR. IN NO APPARENT DISTRESS NOTED. PATIENT WAS KEPT CLEAN, DRY, AND COMFORTABLE. ALL NEEDS ATTENDED AND MET. WILL ENDORSE TO AM SHIFT RN FOR CONTINUATION OF CARE.
--- NOTE | 2019-11-11 07:39 | NUR ---
HIDE SHAKER NOTE PATIENT IS IN BED RESTING WITH HOB ELEVATED. BREATHING EVEN AND NON LABORED. NO SOB NOTED AT THIS TIME. PATIENT IS SEDATED, ON DIPRIVAN DRIP RUNNING AT 20 MCG/KG/MIN.RESPONSIVE TO LOCALIZED PAIN. ON NEOSYNEPHRINE RUNNING AT 1 MCG/KG/MIN. ALL DUE MEDS GIVEN AND TOLERATED WELL. ON BATISTA, URINE CLEAR, YELLOW IN COLOR. IN NO APPARENT DISTRESS NOTED. PATIENT WAS KEPT CLEAN, DRY, AND COMFORTABLE. ALL NEEDS ATTENDED AND MET., WITH TRACH TO VENT SETTING ORDERED, RT UPPER ARM PICC LINE IN PLACE .BED IN LOWEST AND LOCKED POSITION
[2019-11-11] MEDS: MEROPENEM 500 MG in IV NS 0.9% 50 ML IV SCH ×2 (07:44→21:14)
[2019-11-11] MEDS: PANTOPRAZOLE 40 MG VIAL IV SCH (08:18)
[2019-11-11] MEDS: CLOPIDOGREL BISULFATE 75 MG TABLET PO SCH (08:18)
[2019-11-11] MEDS: HYDROXYCHLOROQUINE 200 MG TABLET PO SCH ×2 (08:18→16:46)
--- NOTE | 2019-11-11 08:21 | NUR ---
WOUND CARE CONSULT: REVIEWED NURSING DOCUMENTATION INCLUDING PHOTOS WHICH INDICATE INTACT DEEP TISSUE INJURY TO SACRUM. SPOKE WITH NURSING STAFF, INCLUDING STREET SUPERINTENDENT WHO STATED PT HAS BEEN HEMODYNAMICALLY UNSTABLE FOR TURNING/REPOSITIONING. PT NOTED TO HAVE MULTIPLE CO-MORBIDITIES INCLUDING ACUTE KIDNEY INJURY (NOW HEMODIALYSIS DEPENDENT), SHOCK WITH PNEUMONIA AND COVID 19. PT ON TWO PRESSORS AT THIS TIME. RECOMMENDATIONS MADE FOR SKIN PROTECTION AND WOUND CARE BASED ON NURSING/PHOTO DOCUMENTATION. MD IN AGREEMENT WITH PLAN OF CARE.
[2019-11-11 08:33] LABS: ABG BASE EXCESS -4.8 mmol/L; ABG OXYGEN SATURATION 93.1 % (92.0-98.5); ABG PCO2 37.5 mmHg (35.0-45.0); ABG PH 7.349 (7.350-7.450); ABG PO2 74.5 mmHg (75.0-100.0); AaDO2 420.4 mmHg; COHb 1.3 % (0.5-1.5); MetHb 0.2 % (0.0-1.5); O2Hb 91.7 % (94.0-97.0); SITE, ABG Right Radial; VENT MODE, BG ac 28 500 75% +5
[2019-11-11] MEDS: PROPOFOL 100 ML IV PRN ×2 (08:59→19:42)
--- NOTE | 2019-11-11 09:33 | NUR ---
COMPUTER DRAFTER NOTE PER DR SANDERSON AND RT VENT SETTING CHANGED TO FIO2 70%
--- NOTE | 2019-11-11 10:00 | NUR ---
AUTO CARRIER DRIVER NOTE PATINT HAS SACRAL DTI , PURPLE COLOR , SKIN INTACT , PATIENT AT RISK FOR FURTHER SKIN DAMAGE DUE TO PRESENT DX AND HAS BEEN HEMODYNAMICALLY UNSTABLE, TURN REPOSITION Q2 HOUR TOLERATED , BATISTA CATH IN PLACE ,KEEP CLEAN DRY , WILL CONT TO MONITOR CLOSELY
--- NOTE | 2019-11-11 11:30 | NUR ---
PICK OUT HAND NOTE TURN REPOSITION DONE CONT ON VENT SETTING [id number] AND PROPOFOL DRIP AND LAMONTE DRIP , SAT 95% AT TIS TIME , WILL CONT TO MONITOR
[2019-11-11] MEDS: IV D5/ 0.9% NACL 1,000 ML IV PRN (13:15)
[2019-11-11 14:20] LABS: CALCIUM, SERUM 6.7 mg/dL (8.5-10.1); CARBON DIOXIDE 16 mmol/L (21-32); CHLORIDE 108 mmol/L (98-107); CREATININE 3.8 mg/dL (0.6-1.3); GLUCOSE 86 mg/dL (74-106); POTASSIUM 4.3 mmol/L (3.5-5.1); SODIUM SERUM 140 mmol/L (136-145); UREA NITROGEN, BLOOD 79 mg/dL (7-18)
--- NOTE | 2019-11-11 14:55 | NUR ---
KEYING MACHINE OPERATOR NOTE ON HD AT THIS TIME ,NOT IN DISTRESS, STILL NOT REPROVE TO VERBAL AND TACITLY STIMULI BUT BOTH EYES IS OPEN
--- NOTE | 2019-11-11 17:00 | NUR ---
INSURANCE VERIFICATION REP NOTE HD COMPLETED 1L OF FLUIDS REMOVED, BP 101/75
--- NOTE | 2019-11-11 17:44 | NUR ---
DATA ENGINEER NOTE BP 88/45 INCREASED LAMONTE DRIP UP TO 1.1 MCG\KG\MIN , WILL MONITOR
--- NOTE | 2019-11-11 18:41 | NUR ---
CHEESE MAKER NOT , BP NOW 111/64 SAT 95% WILL CONT ON VENT SETTING ORDERED, ON PROPOFOL DRIP AT 15 MCG\KG\MIN AND NORSYNEPHRINE AT 1.1 MCG\KG\MIN, WITH BATISTA CATH TO GRAVITY WITH YELLOW COLOR URINE , KEEP CLEAN DRY REPOSITION DONE , BED IN LOWEST AND LOCKED POSITION , WILL CONT TO MONITOR
--- NOTE | 2019-11-11 20:50 | NUR ---
MILK POWDER GRINDER. RECEIVED THE PT REST ON THE BED. ORALLY INTUBATED. SEDATED WITH DIPRIVAN. ETT 7.5,LIP 27,AC 28,TV 500,FIO2 70%,PEEP 5. SAT 98%. STILL TACHYPNEIC . RT NARE NGT INTACT. FC PATENT. HOB ELEVATED. RT UPPER ARM PICC LINE LAMONTE 1.1 MCG/KG/MIN,DIPRIVAN 20MCG/KG/MIN,IVF D5NS 50ML/H. TEMPERATURE IS 99.5, WILL CONTINUE TO MONITOR VITALS.
[2019-11-11] MEDS: VANCOMYCIN 0.75 GM in IV D5W 250 ML IV SCH (21:13)
[2019-11-11] MEDS ORDERED: MICAFUNGIN SODIUM 100 MG VIAL IV ONE (22:25)
[2019-11-11] MEDS: MICAFUNGIN SODIUM 100 MG in IV NS 0.9% 100 ML IV SCH (22:38)
[2019-11-11] MEDS: TAMSULOSIN 0.4 MG CAP.SR.24H PO SCH (22:51)
[2019-11-12] VITALS (92 sets, daily range): BP systolic 70–144; BP diastolic 40–75
[2019-11-12] MEDS: PHENYLEPHRINE 100 MG in IV NS 0.9% 240 ML IV PRN ×2 (00:33→22:40)
[2019-11-12] MEDS: SEVELAMER CARBONATE 0.8 GM POWD.PACK GT SCH ×3 (03:18→16:56)
--- NOTE | 2019-11-12 04:25 | NUR ---
CEO ZIFF DAVIS. AM CARE. REMAINING SAME VENT SETTING TOLERATED WELL. IV RT UPPER ARM PICC LINE. DIPRIVAN 20MCG/KG/MIN,LAMONTE 1.1 MCG/KG/MIN,IVF D5NS 50ML/H. HOB ELEVATED. RT NARE NGT CLAMPED. FC PATENT. WILL CONTINUE TO MONITOR VITALS.
[2019-11-12 04:52] LABS: BASOPHILS % (AUTO) 0.2 % (0.0-2.0); EOSINOPHILS % (AUTO) 0.3 % (0.0-6.0); HEMATOCRIT 30 % (39-51); HEMOGLOBIN 9.5 g/dL (13.5-17.5); LYMPHOCYTES # (AUTO) 0.6 /CMM (0.8-4.8); LYMPHOCYTES % (AUTO) 2.7 % (20.0-44.0); MEAN CORPUSCULAR HGB CONC 32 g/dl (31.0-36.0); MEAN CORPUSCULAR VOLUME 88 fL (80-96); MONOCYTES % (AUTO) 9.3 % (2.0-12.0); NEUTROPHILS # (AUTO) 19.2 /CMM (1.8-8.9); NEUTROPHILS % (AUTO) 87.5 % (43.0-81.0); PLATELET COUNT (AUTO) 113 /CMM (150-450); RED BLOOD CELL COUNT(AUTO) 3.34 MIL/uL (4.5-6.0)
[2019-11-12 05:18] LABS: CALCIUM, SERUM 7.7 mg/dL (8.5-10.1); CARBON DIOXIDE 23 mmol/L (21-32); CHLORIDE 109 mmol/L (98-107); CREATININE 3.8 mg/dL (0.6-1.3); GLUCOSE 73 mg/dL (74-106); POTASSIUM 4.5 mmol/L (3.5-5.1); SODIUM SERUM 143 mmol/L (136-145); UREA NITROGEN, BLOOD 73 mg/dL (7-18)
[2019-11-12] MEDS: PROPOFOL 100 ML IV PRN ×3 (05:20→21:59)
[2019-11-12 07:23] LABS: FERRITIN 2742 ng/mL (8-388)
[2019-11-12] MEDS: MEROPENEM 500 MG in IV NS 0.9% 50 ML IV SCH ×2 (08:13→20:15)
[2019-11-12] MEDS: PANTOPRAZOLE 40 MG VIAL IV SCH (09:10)
[2019-11-12] MEDS: CLOPIDOGREL BISULFATE 75 MG TABLET PO SCH (09:10)
[2019-11-12] MEDS: IV D5/ 0.9% NACL 1,000 ML IV PRN (09:48)
[2019-11-12 09:58] LABS: ABG BASE EXCESS -4.3 mmol/L; ABG PCO2 36.2 mmHg (35.0-45.0); ABG PO2 98.6 mmHg (75.0-100.0); AaDO2 361.6 mmHg; COHb 1.1 % (0.5-1.5); MetHb 0.2 % (0.0-1.5); O2Hb 94.8 % (94.0-97.0); PEEP,BG 5 cm H2O; SITE, ABG Right Radial; VT, ABG 500 mL
--- NOTE | 2019-11-12 11:08 | NUR ---
VENT CHANGES BELOW PER DR. SANDERSON: FIO2 55% Addendum: 11/12/19 at 1108 by AMY COLINDRES RT Amended: Links added.
--- NOTE | 2019-11-12 11:13 | NUR ---
PLACED BACK TO 70% DUE TO SPO2 88%. Addendum: 11/12/19 at 1114 by AMY COLINDRES RT Amended: Links added.
[2019-11-12] MEDS: methylPREDNISolone SOD SUCC 40 MG/ML VIAL IV SCH (11:51)
--- NOTE | 2019-11-12 13:51 | NUR ---
CAMERA REPAIRER NOTE Entered order for Osmolite 1.2 @ 10ml/hr x24 hrs. Entered order for Resp Culture w/ gram stain
--- NOTE | 2019-11-12 14:15 | NUR ---
FIO2 DECREASED TO 60% PER DR. SANDERSON Addendum: 11/12/19 at 1415 by AMY COLINDRES RT Amended: Links added.
[2019-11-12] MEDS: OSMOLITE 1.2 CAL 1,000 ML LIQUID GT SCH (14:41)
--- NOTE | 2019-11-12 17:00 | NUR ---
ENERGY CONSERVATION SPECIALIST NOTE Decreased Diprivan from 1.1 to 1.0 due to SBP is 145mmHg. Will cont to monitor.
--- NOTE | 2019-11-12 19:15 | NUR ---
METAL DRILL PRESS OPERATOR RCD PT W/DX PNEUMONIA ON ISOLATION PRECAUTIONS FOR COVID 19; PT IS DNR STATUS. SEDATED ON PROPOFOL AT 25 MCG/KG/MIN; NEOSYNEPHRINE OFF AT THIS TIME SBP >90. NSR/ST ON MONITOR. BATISTA CATH DRAINING LARGE AMOUNT OF DARK YELLOW URINE. SACRAL DTI W/MEPILEX IN PLACE. RIGHT NARE NG TUBE W/OSMOLITE @ 10 ML/HR; NO RESIDUAL AT THIS TIME. CANDIDO PICC LINE PATENT W/D5NS @ 50 ML/HR. CONTINUE TO MONITOR. Addendum: 11/12/19 at 2117 by KELLY URENA RN PT INTUBATED 7.5 @ 27 W/VENT SETTINGS AC 28 500 70% +5. RENDERED ORAL CARE.
--- NOTE | 2019-11-12 19:48 | NUR ---
QUALITY CONTROL REPRESENTATIVE CLOSING NOTE Patient in bed sedated. Appears calm and relaxed. On ET and vent. Vent settings tolerating well. No signs of distress. HOB elevated. No signs of pain or discomfort. CANDIDO Midline running D5NS @ 50ml/hr, Diprovan 20mcg, and Fernie @ 0.5mcg. Vital signs within normal limits. GT feeding running Osmolite 1.2 @ 10ml/hr tolerating well. GT in place, patent and flushed. Auscultated in place. No residual. Thompson catheter in place draining clear matthew urine. No sediments. Safety measures reinforced. Siderails up x2. Bed locked and on lowest position. Endorsed to hourly shift manager nurse for clementine.
[2019-11-12] MEDS: MICAFUNGIN SODIUM 100 MG in IV NS 0.9% 100 ML IV SCH (21:00)
[2019-11-12] MEDS: TAMSULOSIN 0.4 MG CAP.SR.24H PO SCH (21:00)
--- NOTE | 2019-11-12 22:40 | NUR ---
CUSTOMER EXPERIENCE INTERN LAMONTE RESTARTED AT 0.5 MCG/KG/MIN FOR BP 79/40 HR 98; TITRATE PER PROTOCOL.
[2019-11-13] VITALS (45 sets, daily range): BP systolic 87–136; BP diastolic 43–67
--- NOTE | 2019-11-13 01:00 | NUR ---
CUBE CUTTER LAMONTE TITRATED OFF FOR BP 124/64 HR 74; CONTINUE TO MONITOR.
[2019-11-13] MEDS: SEVELAMER CARBONATE 0.8 GM POWD.PACK GT SCH ×3 (02:00→17:13)
[2019-11-13] MEDS: PROPOFOL 100 ML IV PRN ×2 (03:40→16:14)
--- NOTE | 2019-11-13 04:46 | NUR ---
VEHICLE AND EQUIPMENT CLEANER PT CONTINUOUSLY DESATURATING AFTER TURN AND REPOSITION. INCREASED FI 02 TO 70% BY RT; CONTINUE TO MONITOR.
--- NOTE | 2019-11-13 04:59 | NUR ---
TABBER NO DOCUMENTATION NOTED REGARDING PT HAVING A BM; TUBE FEEDING STARTED YESTERDAY. ACTIVE BOWEL SOUNDS. WILL ENDORSE TO ONCOMING SHIFT THAT PT MAY NEED STOOL SOFTENER/ LAXATIVE. CONTINUE TO MONITOR.
[2019-11-13] MEDS: IV D5/ 0.9% NACL 1,000 ML IV PRN (06:30)
--- NOTE | 2019-11-13 08:12 | NUR ---
ICU/RN: INITIAL NOTES, AM RECEIVED WRITTEN REPORT FROM NIGHT NURSE. PT INTUBATED ETT 7.5 AND 27CM AT THE LIP. PT ON VENT SETTINGS ORDERED NO ACUTE DISTRESS NOTED. PT SEDATED ON DIPRIVAN. NORMAL SINUS ON TELE. RIGHT NARE NGT IN PLACE, PLACEMENT VERIFIED, TUBE FEEDING INFUSING ORDERED, TOLERATING WELL. PT TURNED AND REPOSITIONED, ALL NEEDS ATTENDED TO, SAFETY MEASURES TAKEN, BED IN LOW POSITION, SIDE RAILS UP, CALL LIGHT WITHIN REACH. WILL CONTINUE CARE.
[2019-11-13] MEDS: MEROPENEM 500 MG in IV NS 0.9% 50 ML IV SCH ×2 (08:38→20:00)
[2019-11-13] MEDS: methylPREDNISolone SOD SUCC 40 MG/ML VIAL IV SCH (08:40)
[2019-11-13] MEDS: CLOPIDOGREL BISULFATE 75 MG TABLET PO SCH (08:40)
[2019-11-13] MEDS: PANTOPRAZOLE 40 MG VIAL IV SCH (08:40)
[2019-11-13] MEDS ORDERED: VANCOMYCIN 0.75 GM in IV D5W 250 ML IV SCH (09:00)
--- NOTE | 2019-11-13 09:00 | NUR ---
ICU/RN: SEDATION VACATION STARTED, WILL CONTINUE TO MONITOR.
[2019-11-13 09:33] LABS: ABG BASE EXCESS -6.8 mmol/L; ABG OXYGEN SATURATION 93.3 % (92.0-98.5); ABG PCO2 36.5 mmHg (35.0-45.0); ABG PH 7.325 (7.350-7.450); ABG PO2 80.8 mmHg (75.0-100.0); AaDO2 306.9 mmHg; COHb 0.9 % (0.5-1.5); MetHb 0.2 % (0.0-1.5); O2Hb 92.3 % (94.0-97.0); PEEP,BG 8 cm H2O; SITE, ABG Right Femoral; VT, ABG 500 mL
--- NOTE | 2019-11-13 10:00 | NUR ---
ICU/RN: SEDATION VACATION: RESUMING DIPRIVAN PER PROTOCOL. PT DOES NOT OPEN EYES OR FOLLOW COMMANDS. INCREASED RR RATE NOTED. PT LOOKS AGITATED. WILL TITRATE PER PROTOCOL.
--- NOTE | 2019-11-13 12:10 | NUR ---
ICU/RN: HD DONE, 2LITERS OUT. VSS, WILL CONTINUE TO MONITOR
--- NOTE | 2019-11-13 15:35 | NUR ---
RT NOTE: PATIENT RECEIVED ORALLY INTUBATED WITH 7.5 ETT SECURED AT 27 CM AT MID LIP LINE ON MECHANICAL VENT. ALARMS VERIFIED AND AUDIBLE. VENT PLUGGED INTO RED OUTLET. VENT CHANGES PER DR SANDERSON'S ORDERS. AMBU BAG AT [facility].
[2019-11-13] MEDS: OSMOLITE 1.2 CAL 1,000 ML LIQUID GT SCH (17:13)
--- NOTE | 2019-11-13 19:00 | NUR ---
ICU/RN: ENDING NOTES,AM WRITTEN REPORT WILL BE ENDORSED TO NIGHT NURSE FOR HAO. PT INTUBATED AND SEDATED, ON VENT SETTINGS ORDERED BY MD, NO ACUTE DISTRESS NOTED. SINUS ON TELE. GTUBE FEEDING INFUSING AT 10ML/HR TOLERATING WELL, NO RESIDUAL NOTED. BATISTA CATH IN PLACE, DRAINING URINE. HD DONE TODAY 2LITERS OUT. ALL NEEDS ATTENDED TO, SAFETY MEASURES TAKEN, BED IN LOW POSITION, SIDE RAILS UP, CALL LIGHT WITHIN REACH. BED BATH GIVEN, LINENS CHANGED, PT TURNED AND REPOSITIONED.
--- NOTE | 2019-11-13 20:00 | NUR ---
Received patient orally intubated on full vent support with prescribed vent settings saturating well.Sedated on Diprivan gtt at 10 mcg and IVF both infusing via CANDIDO PICC Line site intact.Suctioned secretions PRN.SR.Normotensive.With ongoing tube feeding via R nare NGT.Placement verified.5 ml residual.HOB elevated.FC to gravity.No distress noted.Turned and repositioned.DNR status.COVID + PPE maintained.Continue monitoring.
[2019-11-13] MEDS: MICAFUNGIN SODIUM 100 MG in IV NS 0.9% 100 ML IV SCH (21:13)
[2019-11-13] MEDS: TAMSULOSIN 0.4 MG CAP.SR.24H PO SCH (22:00)
[2019-11-14] VITALS (26 sets, daily range): BP systolic 108–148; BP diastolic 55–77
[2019-11-14] MEDS: SEVELAMER CARBONATE 0.8 GM POWD.PACK GT SCH ×3 (02:01→18:12)
[2019-11-14] MEDS: PROPOFOL 100 ML IV PRN ×3 (02:02→23:45)
[2019-11-14 04:33] LABS: BASOPHILS % (AUTO) 0.2 % (0.0-2.0); HEMATOCRIT 27 % (39-51); HEMOGLOBIN 8.4 g/dL (13.5-17.5); LYMPHOCYTES # (AUTO) 0.5 /CMM (0.8-4.8); LYMPHOCYTES % (AUTO) 3.6 % (20.0-44.0); MEAN CORPUSCULAR HGB CONC 32 g/dl (31.0-36.0); MEAN CORPUSCULAR VOLUME 90 fL (80-96); MONOCYTES # (AUTO) 1.1 /CMM (0.1-1.30); MONOCYTES % (AUTO) 7.4 % (2.0-12.0); NEUTROPHILS % (AUTO) 88.8 % (43.0-81.0); PLATELET COUNT (AUTO) 118 /CMM (150-450); RED BLOOD CELL COUNT(AUTO) 2.98 MIL/uL (4.5-6.0); WHITE BLOOD COUNT (AUTO) 14.6 K/uL (4.3-11.0)
[2019-11-14 04:56] LABS: ALANINE AMINOTRANSFERASE 24 U/L (12-78); ALKALINE PHOSPHATASE 90 U/L (46-116); ASPARTATE AMINOTRANSFERASE 46 U/L (15-37); BILIRUBIN,TOTAL 1.2 mg/dL (0.2-1.0); CALCIUM, SERUM 7.8 mg/dL (8.5-10.1); CARBON DIOXIDE 23 mmol/L (21-32); CHLORIDE 111 mmol/L (98-107); CREATININE 4.6 mg/dL (0.6-1.3); GLUCOSE 139 mg/dL (74-106); MAGNESIUM 2.5 mg/dL (1.8-2.4); PHOSPHORUS 7.1 mg/dL (2.5-4.9); POTASSIUM 4.9 mmol/L (3.5-5.1); SODIUM SERUM 145 mmol/L (136-145); TOTAL PROTEIN, SERUM 5.4 g/dL (6.4-8.2)
[2019-11-14 05:09] LABS: UREA NITROGEN, BLOOD 99 mg/dL (7-18)
[2019-11-14] MEDS: IV D5/ 0.9% NACL 1,000 ML IV PRN (05:18)
--- NOTE | 2019-11-14 06:00 | NUR ---
Patient remains sedated on Diprivan gtt at 10 mcg.VSS.SR.Tolerating ngt feeding.Low urine output only 300 ml 12 hrs shift.Patient is on HD.AM Hygienic care done.Sacral wound care done.Turned and repositioned.No significant changes noted during the shift.Will endorse to day shift for HAO.
--- NOTE | 2019-11-14 08:06 | NUR ---
WOUND CARE CONSULT: REVIEWED NURSING DOCUMENTATION AND CHART, SPOKE WITH NURSING STAFF. PER RN, PT HAS SACRAL DEEP TISSUE INJURY WHICH IS NOW IN EVOLUTION. RECOMMENDATIONS MADE FOR SKIN PROTECTION AND WOUND CARE. DISCUSSED WITH NURSING STAFF. RECOMMEND SURGICAL CONSULT. DR RADHA SAUL NOTIFIED OF CONSULT REQUEST. FIRST STEP LOW AIRLOSS MATTRESS ON ORDER. MD IN AGREEMENT WITH PLAN OF CARE. Addendum: 11/14/19 at 0810 by NOEMY LLOYD WNDNU PT CONTINUES TO HAVE MULTIPLE CO-MORBIDITIES INCLUDING RESPIRATORY FAILURE, SHOCK, COVID 19 AND ACUTE RENAL FAILURE CURRENTLY ON DIALYSIS.
[2019-11-14] MEDS: MEROPENEM 500 MG in IV NS 0.9% 50 ML IV SCH ×2 (08:08→20:45)
[2019-11-14 08:22] LABS: ABG BASE EXCESS -7.1 mmol/L; ABG OXYGEN SATURATION 98.2 % (92.0-98.5); ABG PCO2 35.7 mmHg (35.0-45.0); ABG PH 7.325 (7.350-7.450); ABG PO2 171.7 mmHg (75.0-100.0); AaDO2 361.2 mmHg; COHb 1.2 % (0.5-1.5); MetHb 0.4 % (0.0-1.5); O2Hb 96.6 % (94.0-97.0); SITE, ABG Left Brachial
[2019-11-14] MEDS: CLOPIDOGREL BISULFATE 75 MG TABLET PO SCH (08:46)
[2019-11-14] MEDS: methylPREDNISolone SOD SUCC 40 MG/ML VIAL IV SCH (08:46)
[2019-11-14] MEDS: PANTOPRAZOLE 40 MG/PACK PACK NG SCH (09:38)
--- NOTE | 2019-11-14 10:35 | NUR ---
RN NOTES 07: RECEIVED PATIENT, SEDATED WITH DIPRIVAN AT 10MCG. NOT ON ANY FORM OF DISTRESS. BREATHING UNLABORED. TOLERATING CURRENT VENT SETTING. SINUS RHYTHM ON THE MONITOR WITH HR ON THE 90S. PATIENT TEMPERATURE ON THE LOW SIDE- WILL RENDER WARMING MEASURES. WITH ONGOING GTF AT10CC/HR. IV OF D5NS AT 50 CC/HR. HOB ELEVATED. CALL LIGHT WITHIN REACH. WILL CONTINUE TO MONITOR PATIENT ACCORDINGLY 929: PATIENT OFF SEDATION AT THIS TIME, ABLE TO OPEN EYES BUT UNABLE TO FOLLOW COMMAND. NO PURPOSEFUL MOVEMENT NOTED. BILATERAL UPPER EXTREMITIES WITH NON PITTING EDEMA, BILATERAL LOWER EXTREMITIES WITH PITTING EDEMA +3. ABLE TO TOLERATE GTF WITH RESIDUAL OF 10CC. DUE MEDICATION ADMINISTERED. WILL CONTINUE TO MONITOR PATIENT ACCORDINGLY
--- NOTE | 2019-11-14 19:15 | NUR ---
CARBIDE GRINDER RCD PT W/DX PNEUMONIA ON ISOLATION PRECAUTIONS FOR COVID 19; PT IS DNR STATUS. SEDATED ON PROPOFOL AT 20 MCG/KG/MIN; INTUBATED 7.5 @ 28 W/VENT SETTINGS AC 28 500 50% +8; PT HAS LARGE AMOUNT OF THICK SECRETIONS. NSR/ST ON MONITOR. BP WNL. EDEMA NOTED TO BUE AND BLE. BATISTA CATH DRAINING LARGE AMOUNT OF DARK YELLOW URINE. SACRAL WOUND W/OIL EMULSION AND MEPILEX IN PLACE. RIGHT NARE NG TUBE W/OSMOLITE @ 10 ML/HR; NO RESIDUAL AT THIS TIME. CANDIDO PICC LINE PATENT W/SLUGGISH W/SLOW BLOOD RETURN. FLUSHED ALL PORTS W/NS CONTINUE TO MONITOR.
--- NOTE | 2019-11-14 19:17 | NUR ---
RN NOTES ENDORSED FOR CONTINUITY OF CARE. NOT ON ANY FORM OF DISTRESS. BREATHING UNLABORED. WITH ONGOING PROPOFOL AT 25MCG AND GTF AT 10CC/HR. NO INDICATION OF PAIN NOTED. BATISTA IN PLACE AND DRAINING WELL.. SAFETY MEASURES IN PLACE. CALL LIGHT WITHIN REACH
[2019-11-14] MEDS: TAMSULOSIN 0.4 MG CAP.SR.24H PO SCH (21:30)
[2019-11-14] MEDS: MICAFUNGIN SODIUM 100 MG in IV NS 0.9% 100 ML IV SCH (21:30)
[2019-11-14] MEDS: IV NS 0.9% 250 ML IV PRN (21:30)
--- NOTE | 2019-11-14 22:00 | NUR ---
SECURITY SYSTEMS ADMINISTRATOR PT TURNED AND REPOSITIONED; SACRAL DRESSING INTACT; WOUND APPEARING WORSE. CONTINUE TO TURN PT CONDITION PERMITS.
[2019-11-15] VITALS (26 sets, daily range): BP systolic 90–150; BP diastolic 45–79
[2019-11-15] MEDS: SEVELAMER CARBONATE 0.8 GM POWD.PACK GT SCH ×3 (01:30→17:08)
--- NOTE | 2019-11-15 03:30 | NUR ---
COMPOUND FINISHER COMPLETE BED BATH AND LINEN CHANGE RENDERED; TOLERATED WELL. SACRAL DRESSING CHANGED AT THIS TIME. CONTINUE TO MONITOR.
[2019-11-15 08:33] LABS: ABG BASE EXCESS -6.1 mmol/L; ABG OXYGEN SATURATION 93.8 % (92.0-98.5); ABG PCO2 33.5 mmHg (35.0-45.0); ABG PH 7.362 (7.350-7.450); ABG PO2 81.7 mmHg (75.0-100.0); AaDO2 237.1 mmHg; COHb 1.2 % (0.5-1.5); MetHb 0.2 % (0.0-1.5); O2Hb 92.5 % (94.0-97.0); SITE, ABG Right Radial
[2019-11-15] MEDS: MEROPENEM 500 MG in IV NS 0.9% 50 ML IV SCH ×2 (08:33→20:25)
[2019-11-15] MEDS: methylPREDNISolone SOD SUCC 40 MG/ML VIAL IV SCH (09:08)
[2019-11-15] MEDS: PANTOPRAZOLE 40 MG/PACK PACK NG SCH (09:08)
[2019-11-15] MEDS: CLOPIDOGREL BISULFATE 75 MG TABLET PO SCH (09:08)
[2019-11-15] MEDS: PROPOFOL 100 ML IV PRN ×2 (10:35→17:38)
[2019-11-15] MEDS: BISACODYL SUPP (10 MG) 10 MG/SUPP.RECT SUPP.RECT RC PRN (16:07)
[2019-11-15] MEDS: NEPRO 1,000 ML BOTTLE GT PRN (16:08)
--- NOTE | 2019-11-15 19:21 | NUR ---
BAFFLE MOUNTER PT RECEIVING HD AT THIS TIME. LULYS.
--- NOTE | 2019-11-15 20:00 | NUR ---
EQUIPMENT VALIDATION ENGINEER HD OUTPUT 800 ML; PT TOLERATED WELL. Addendum: 11/16/19 at 0618 by KELLY URENA RN [facility] 21
--- NOTE | 2019-11-15 20:00 | NUR ---
DISTRICT REPRESENTATIVE RCD PT W/DX PNEUMONIA ON ISOLATION PRECAUTIONS FOR COVID 19; PT IS DNR STATUS. SEDATED ON PROPOFOL AT 25 MCG/KG/MIN; INTUBATED 7.5 @ 28 W/VENT SETTINGS AC 28 500 50% +8; PT HAS LARGE AMOUNT OF THICK SECRETIONS. NSR/ST ON MONITOR. BP WNL. EDEMA NOTED TO BUE AND BLE. BATISTA CATH DRAINING LARGE AMOUNT OF DARK YELLOW URINE. SACRAL WOUND W/OIL EMULSION AND MEPILEX IN PLACE. WOUND APPEARS TO BE GETTING WORSE. KCI MATTRESS APPLIED. RIGHT NARE NG TUBE W/NEPRO AT @ 20 ML/HR W/GOAL 40 ML/HR. MIN RESIDUAL AT THIS TIME. CANDIDO PICC LINE PATENT W/SLUGGISH BLOOD RETURN. FLUSHED ALL PORTS W/NS CONTINUE TO MONITOR.
[2019-11-15] MEDS: MICAFUNGIN SODIUM 100 MG in IV NS 0.9% 100 ML IV SCH (21:15)
[2019-11-15] MEDS: TAMSULOSIN 0.4 MG CAP.SR.24H PO SCH (21:41)
[2019-11-16] VITALS (24 sets, daily range): BP systolic 98–148; BP diastolic 51–70
[2019-11-16] MEDS: SEVELAMER CARBONATE 0.8 GM POWD.PACK GT SCH ×3 (02:10→18:00)
[2019-11-16] MEDS: PROPOFOL 100 ML IV PRN ×3 (02:10→21:00)
[2019-11-16 04:33] LABS: BASOPHILS % (AUTO) 0.1 % (0.0-2.0); EOSINOPHILS % (AUTO) 0.1 % (0.0-6.0); HEMATOCRIT 25 % (39-51); HEMOGLOBIN 7.8 g/dL (13.5-17.5); LYMPHOCYTES # (AUTO) 0.5 /CMM (0.8-4.8); LYMPHOCYTES % (AUTO) 3.7 % (20.0-44.0); MEAN CORPUSCULAR HGB CONC 31 g/dl (31.0-36.0); MEAN CORPUSCULAR VOLUME 89 fL (80-96); MONOCYTES # (AUTO) 1.3 /CMM (0.1-1.30); MONOCYTES % (AUTO) 8.8 % (2.0-12.0); NEUTROPHILS # (AUTO) 12.6 /CMM (1.8-8.9); NEUTROPHILS % (AUTO) 87.3 % (43.0-81.0); PLATELET COUNT (AUTO) 119 /CMM (150-450); RED BLOOD CELL COUNT(AUTO) 2.79 MIL/uL (4.5-6.0); WHITE BLOOD COUNT (AUTO) 14.4 K/uL (4.3-11.0)
[2019-11-16 04:47] LABS: CALCIUM, SERUM 7.5 mg/dL (8.5-10.1); CARBON DIOXIDE 24 mmol/L (21-32); CHLORIDE 108 mmol/L (98-107); CREATININE 4.3 mg/dL (0.6-1.3); GLUCOSE 77 mg/dL (74-106); POTASSIUM 4.9 mmol/L (3.5-5.1); SODIUM SERUM 143 mmol/L (136-145)
[2019-11-16 04:51] LABS: UREA NITROGEN, BLOOD 109 mg/dL (7-18)
[2019-11-16] MEDS: VANCOMYCIN 500 MG in IV D5W 100 ML IV PRN (06:17)
[2019-11-16] MEDS: PANTOPRAZOLE 40 MG/PACK PACK NG SCH (08:01)
[2019-11-16] MEDS: CLOPIDOGREL BISULFATE 75 MG TABLET PO SCH (08:01)
[2019-11-16] MEDS: MEROPENEM 500 MG in IV NS 0.9% 50 ML IV SCH ×2 (08:01→20:00)
[2019-11-16] MEDS: methylPREDNISolone SOD SUCC 40 MG/ML VIAL IV SCH (08:01)
--- NOTE | 2019-11-16 08:15 | NUR ---
Sedation Vacation Notes During sedation vacation, patient was unable to follow command or track. Pupils were reactive.
--- NOTE | 2019-11-16 18:29 | NUR ---
AUTO BUMPER STRAIGHTENER note - closing Patient is currently sedated. See prior note for neuro assessment during sedation vacation. COVID+ isolation measures observed. Currently attached to [facility] vent via ETT, tolerating settings FiO2 50% , 8 PEEP. SPO2 98%. No fevers during this shift. Tele monitor attached, normal sinus rhythm HR 90s. R nare NGT 60@nose (advanced 15cm per recommendation, CXR ordered). Nepro on hold pending CXR results confirming placement. No bowel movement this shift. Thompson catheter draining to gravity. No HD done today. Wound care completed. Turned per protocol as able. BUE swelling 3+. CANDIDO PICC line infusing diprovan @25mcg/kg/min. Spoke to "Cristóbal" today. Seen by Dr. Quinn for sacral wound. No significant changes throughout shift. BP WNL throughout shift, no pressors.
--- NOTE | 2019-11-16 19:30 | NUR ---
FENCE RIDER RCD PT W/DX PNEUMONIA ON ISOLATION PRECAUTIONS FOR COVID 19; PT IS DNR STATUS. SEDATED ON PROPOFOL AT 25 MCG/KG/MIN; INTUBATED 7.5 @ 28 W/VENT SETTINGS AC 28 500 50% +8; PT HAS LARGE AMOUNT OF THICK SECRETIONS. NSR/ST ON MONITOR. BP WNL. EDEMA NOTED TO BUE AND BLE. BATISTA CATH DRAINING LARGE AMOUNT OF DARK YELLOW URINE. SACRAL WOUND W/OIL EMULSION AND MEPILEX IN PLACE. RIGHT NARE NG TUBE TF TO BE RESTARTED POST CXR RESULTS. CANDIDO PICC LINE PATENT W/SLUGGISH BLOOD RETURN. FLUSHED ALL PORTS W/NS CONTINUE TO MONITOR.
--- NOTE | 2019-11-16 20:29 | NUR ---
RECEIVED PT INTUBATED ON VENT. 7.5 ETT SECURED AT 27CM AT THE LIP. PT TOLERATING VENT SETTINGS. SX'D FOR MOD AMT OF THICK YELLOW SECRETIONS. ETT SECURED, CUFF CHECKED, ALARMS SCHECKED. CONTINUE [facility] VENT SUPPORT. Addendum: 11/16/19 at 2030 by FAISAL DEVLIN RT Amended: Links added.
[2019-11-16] MEDS: TAMSULOSIN 0.4 MG CAP.SR.24H PO SCH (21:00)
[2019-11-16] MEDS: MICAFUNGIN SODIUM 100 MG in IV NS 0.9% 100 ML IV SCH (21:00)
[2019-11-17] VITALS (32 sets, daily range): BP systolic 72–172; BP diastolic 46–84
[2019-11-17] MEDS: SEVELAMER CARBONATE 0.8 GM POWD.PACK GT SCH ×3 (02:30→18:52)
[2019-11-17 05:15] LABS: CALCIUM, SERUM 7.7 mg/dL (8.5-10.1); CARBON DIOXIDE 24 mmol/L (21-32); CHLORIDE 109 mmol/L (98-107); CREATININE 4.8 mg/dL (0.6-1.3); GLUCOSE 99 mg/dL (74-106); SODIUM SERUM 145 mmol/L (136-145)
[2019-11-17 05:17] LABS: UREA NITROGEN, BLOOD 123 mg/dL (7-18)
[2019-11-17] MEDS: PROPOFOL 100 ML IV PRN ×2 (05:55→15:49)
--- NOTE | 2019-11-17 06:40 | NUR ---
PHONE ENGINEER NO CHANGE IN PT STATUS. NEPRO AT GOAL RATE 40 ML/HR MIN RESIDUAL NOTED.
--- NOTE | 2019-11-17 07:39 | NUR ---
RT Pt received orally intubated on mechanical ventilation with noted settings. Alarms are set and audible with BVM by bedside. No SOB or respiratory distress noted. Addendum: 11/17/19 at 1421 by LYNN QUIGLEY RT Amended: Links added.
[2019-11-17] MEDS: PANTOPRAZOLE 40 MG/PACK PACK NG SCH (08:07)
[2019-11-17] MEDS: CLOPIDOGREL BISULFATE 75 MG TABLET PO SCH (08:07)
[2019-11-17] MEDS: MEROPENEM 500 MG in IV NS 0.9% 50 ML IV SCH ×2 (08:08→19:52)
[2019-11-17] MEDS: methylPREDNISolone SOD SUCC 40 MG/ML VIAL IV SCH (08:08)
[2019-11-17 08:48] LABS: BASOPHILS % (AUTO) 0.2 % (0.0-2.0); EOSINOPHILS % (AUTO) 0.1 % (0.0-6.0); HEMATOCRIT 26 % (39-51); HEMOGLOBIN 8.1 g/dL (13.5-17.5); LYMPHOCYTES # (AUTO) 0.3 /CMM (0.8-4.8); LYMPHOCYTES % (AUTO) 1.6 % (20.0-44.0); MEAN CORPUSCULAR HGB CONC 31 g/dl (31.0-36.0); MEAN CORPUSCULAR VOLUME 91 fL (80-96); MONOCYTES # (AUTO) 1.7 /CMM (0.1-1.30); MONOCYTES % (AUTO) 7.9 % (2.0-12.0); NEUTROPHILS # (AUTO) 19.7 /CMM (1.8-8.9); NEUTROPHILS % (AUTO) 90.2 % (43.0-81.0); PLATELET COUNT (AUTO) 128 /CMM (150-450); RED BLOOD CELL COUNT(AUTO) 2.85 MIL/uL (4.5-6.0); WHITE BLOOD COUNT (AUTO) 21.8 K/uL (4.3-11.0)
[2019-11-17 09:01] LABS: MAGNESIUM 2.4 mg/dL (1.8-2.4); PHOSPHORUS 7.9 mg/dL (2.5-4.9)
--- NOTE | 2019-11-17 11:21 | NUR ---
Sedation Vacation Notes Propofol has been off for 1 hr. Patient's eyes open. He is able to squeeze fingers upon request. Does not track or make eye contact upon request. Upper and lower extremities remain still. Increase in HR & BP noted. Addendum: 11/17/19 at 1250 by SE ROJAS RN @[id number] patient did not squeeze fingers upon request. no tracking or eye contact made.
[2019-11-17 12:00] LABS: BAND % (MANUAL) 2 % (0.0-5.0); LYMPHOCYTES % (MANUAL) 1 % (16-48); MONOCYTES % (MANUAL) 10 % (0-11.0); MYELOCYTES % 1 % (0-0); NEUTROPHILS % (MANUAL) 86 (42-76)
[2019-11-17] MEDS: VANCOMYCIN 500 MG in IV D5W 100 ML IV PRN (14:30)
[2019-11-17] MEDS: NEPRO 1,000 ML BOTTLE GT PRN (14:52)
--- NOTE | 2019-11-17 19:20 | NUR ---
DRY KILN BURNER Closing Patient remains sedated. See sedation vacation notes. [facility], tolerating settings well, SPO2 >94%, no distress noted, warm to touch. R nare NGT 60@nose, placement verified, infusing Nepro @40mL/hr, no residual. Thompson catheter draining to gravity. Bowel movement x1 today, no diarrhea noted. HD today. SBP decreased to 70s, 1L NS administered by aircraft painter + 1L removed. Wound care completed, turned per protocol. CANDIDO PICC c/d/i, infusing dip@20mcg/kg/min, blood return, blood cx (x2 - 1 from PICC 1 from HD cath)+ resp. cx + urine cx sent today. R Fem HD cath intact. Spoke to "Cristóbal" today. Endorsed to noc RN
[2019-11-17] MEDS: TAMSULOSIN 0.4 MG CAP.SR.24H PO SCH (21:43)
[2019-11-17] MEDS: MICAFUNGIN SODIUM 100 MG in IV NS 0.9% 100 ML IV SCH (21:43)
[2019-11-18] VITALS (27 sets, daily range): BP systolic 110–151; BP diastolic 52–75
[2019-11-18] MEDS: SEVELAMER CARBONATE 0.8 GM POWD.PACK GT SCH ×3 (02:06→16:59)
[2019-11-18] MEDS: PROPOFOL 100 ML IV PRN ×2 (04:24→12:41)
[2019-11-18 04:38] LABS: CALCIUM, SERUM 7.8 mg/dL (8.5-10.1); CARBON DIOXIDE 26 mmol/L (21-32); CHLORIDE 107 mmol/L (98-107); CREATININE 4.1 mg/dL (0.6-1.3); GLUCOSE 117 mg/dL (74-106); POTASSIUM 4.9 mmol/L (3.5-5.1); SODIUM SERUM 143 mmol/L (136-145)
[2019-11-18 04:40] LABS: UREA NITROGEN, BLOOD 107 mg/dL (7-18)
[2019-11-18] MEDS: MEROPENEM 500 MG in IV NS 0.9% 50 ML IV SCH ×2 (08:40→21:01)
[2019-11-18] MEDS: CLOPIDOGREL BISULFATE 75 MG TABLET PO SCH (08:41)
[2019-11-18] MEDS: PANTOPRAZOLE 40 MG/PACK PACK NG SCH (08:41)
--- NOTE | 2019-11-18 10:07 | NUR ---
WOUND CARE FOLLOW UP: REVIEWED NURSING DOCUMENTATION, CHART AND PHOTOS OF SACRAL WOUND. DISCUSSED WITH NURSING STAFF AND DR RADHA SAUL, CURRENTLY ON CASE. NEW WOUND TREATMENT ORDERS RECEIVED FROM DR SAUL. WILL FOLLOW. IN AGREEMENT WITH PLAN OF CARE.
[2019-11-18 10:12] LABS: ABG BASE EXCESS -3.4 mmol/L; ABG OXYGEN SATURATION 92.7 % (92.0-98.5); ABG PCO2 35.7 mmHg (35.0-45.0); ABG PH 7.391 (7.350-7.450); ABG PO2 74.2 mmHg (75.0-100.0); AaDO2 242.1 mmHg; COHb 1.4 % (0.5-1.5); MetHb 0.2 % (0.0-1.5); O2Hb 91.2 % (94.0-97.0); SITE, ABG Right Radial
[2019-11-18] MEDS ORDERED: DAKINS QUARTER STRENGTH (0.125%) 480 ML BOTTLE TOP SCH (10:30)
[2019-11-18] MEDS: IV NS 0.9% 250 ML IV PRN (14:09)
--- NOTE | 2019-11-18 17:43 | NUR ---
RT NOTE: PATIENT RECEIVED ORALLY INTUBATED WITH 7.5 ETT SECURED AT 27CM MID LIP LINE ON MECHANICAL VENT. ALARMS VERIFIED AND AUDIBLE. VENT PLUGGED INTO RED OUTLET. AMBU BAG AT [facility].
--- NOTE | 2019-11-18 20:08 | NUR ---
PATTERNMAKER ALL AROUND.INITIAL ASSESSMENT. RECEIVED THE PT REST ON THE BED. ORALLY INTUBATED. SEDATED WITH DIPRIVAN. ETT 7,5,AC 28,LIP 28,TV 500,FIO2 50%,PEEP 8. SAT 97%. RESORT DESK CLERK SHOWING NSR WITH BBB, IV RT UPPER ARM PICC LINE DIPRIVAN 20MCG/KG/MIN, NGT INTACT, NEPRO 40ML/H.FC PATENT. RT FEMORAL HD CATH INTACT. HOB ELEVATED. TEMPERATURE IS 99.1. WILL CONTINUE TO MONITOR VITALS.
[2019-11-18] MEDS: MICAFUNGIN SODIUM 100 MG in IV NS 0.9% 100 ML IV SCH (21:01)
[2019-11-19] VITALS (32 sets, daily range): BP systolic 94–154; BP diastolic 48–82
[2019-11-19] MEDS: SEVELAMER CARBONATE 0.8 GM POWD.PACK GT SCH ×3 (01:14→18:09)
[2019-11-19] MEDS: TAMSULOSIN 0.4 MG CAP.SR.24H PO SCH ×2 (01:14→21:47)
[2019-11-19] MEDS: DAKINS QUARTER STRENGTH (0.125%) 480 ML BOTTLE TOP SCH ×2 (01:15→20:09)
[2019-11-19] MEDS: PROPOFOL 100 ML IV PRN ×2 (03:57→19:25)
[2019-11-19] MEDS: NEPRO 1,000 ML BOTTLE GT PRN (04:22)
[2019-11-19 04:49] LABS: BASOPHILS # (AUTO) 0.1 /CMM (0.0-0.2); BASOPHILS % (AUTO) 0.3 % (0.0-2.0); EOSINOPHILS % (AUTO) 0.2 % (0.0-6.0); HEMATOCRIT 25 % (39-51); HEMOGLOBIN 7.7 g/dL (13.5-17.5); LYMPHOCYTES # (AUTO) 0.2 /CMM (0.8-4.8); LYMPHOCYTES % (AUTO) 0.7 % (20.0-44.0); MEAN CORPUSCULAR HGB CONC 31 g/dl (31.0-36.0); MEAN CORPUSCULAR VOLUME 91 fL (80-96); MONOCYTES # (AUTO) 2.1 /CMM (0.1-1.30); MONOCYTES % (AUTO) 7.1 % (2.0-12.0); NEUTROPHILS # (AUTO) 27.4 /CMM (1.8-8.9); NEUTROPHILS % (AUTO) 91.7 % (43.0-81.0); PLATELET COUNT (AUTO) 143 /CMM (150-450); RED BLOOD CELL COUNT(AUTO) 2.69 MIL/uL (4.5-6.0); WHITE BLOOD COUNT (AUTO) 29.8 K/uL (4.3-11.0)
[2019-11-19 05:01] LABS: CALCIUM, SERUM 7.9 mg/dL (8.5-10.1); CARBON DIOXIDE 26 mmol/L (21-32); CHLORIDE 108 mmol/L (98-107); CREATININE 4.5 mg/dL (0.6-1.3); GLUCOSE 111 mg/dL (74-106); MAGNESIUM 2.4 mg/dL (1.8-2.4); PHOSPHORUS 7.5 mg/dL (2.5-4.9); POTASSIUM 4.8 mmol/L (3.5-5.1); SODIUM SERUM 144 mmol/L (136-145)
[2019-11-19 05:04] LABS: UREA NITROGEN, BLOOD 118 mg/dL (7-18)
--- NOTE | 2019-11-19 06:27 | NUR ---
curriculum assistant principal. during night no changes, remaining same tube feeding running. same vent setting tolerated well. sat 99%. hall monitor showing s tach, turn and reposition q2h. will continue to monitor vitals.
[2019-11-19] MEDS: MEROPENEM 500 MG in IV NS 0.9% 50 ML IV SCH (08:27)
[2019-11-19] MEDS: PANTOPRAZOLE 40 MG/PACK PACK NG SCH (09:16)
[2019-11-19] MEDS: CLOPIDOGREL BISULFATE 75 MG TABLET PO SCH (09:16)
[2019-11-19 09:56] LABS: ABG BASE EXCESS -3.5 mmol/L; ABG OXYGEN SATURATION 92.9 % (92.0-98.5); ABG PCO2 36.8 mmHg (35.0-45.0); AaDO2 311.3 mmHg; COHb 1.4 % (0.5-1.5); MetHb 0.4 % (0.0-1.5); O2Hb 91.2 % (94.0-97.0); SITE, ABG Left Radial; VENT MODE, BG AC 28 500 +8 60%
--- NOTE | 2019-11-19 16:33 | NUR ---
RT NOTE: PATIENT RECEIVED ORALLY INTUBATED WITH 7.5 ETT SECURED AT 27CM MID LIP LINE ON MECHANICAL VENT. ALARMS VERIFIED AND AUDIBLE. VENT PLUGGED INTO RED OUTLET. AMBU BAG AT [facility].
--- NOTE | 2019-11-19 19:53 | NUR ---
WOOL BATTING WORKER NOTE RECEIVED PATIENT IN BED ORALLY INTUBATED SEDATED ON DIPRIVAN TOLERATING WELL. BREATHING NORMAL, RESPIRATION EVEN NON LABORED. NO S/S OF DISTRESS NOTED. NGT INTACT NEPHRO @40ML TOLERATING WELL NO RESIDUAL NOTED. F/C INTACT YELLOW URINE RUNNING WITH GRAVITY. CANDIDO PICC LINE INTACT PATENT. RT FEMORAL HD CATH INTACT. SAFETY MEASURES IN PLACE, SIDE RAILS UP, CALL LIGHT WITHIN REACH. WILL CONT TO MONITOR.
[2019-11-19] MEDS ORDERED: VANCOMYCIN 1 GM in IV D5W 250ml IV ONE (20:00)
[2019-11-19] MEDS: MICAFUNGIN SODIUM 100 MG in IV NS 0.9% 100 ML IV SCH (20:08)
--- NOTE | 2019-11-19 20:16 | NUR ---
RT NOTE PT RECEIVED INTUBATED WITH @ 7.5 ET TUBE WITH 27 CM. MOVED ET TUBE TO MID LIP LINE. CUFF CHECKED VIA GAMES DEALER. AMBU BAG @ HOB. SX DONE, ET TUBE SECURED AND PATENT. ALARMS ON AND AUDIBLE. VENT PLUGGED TO RED OUTLET. NO DISTRESS NOTED. WILL MONITOR T/O SHIFT. Addendum: 11/19/19 at 2023 by PRERNA CEBALLOS RT Amended: Links added.
--- NOTE | 2019-11-19 20:30 | NUR ---
RN/ICU-PT. TO RECEIVE 1 UNIT PRBC WITH HD. TEMPT.100/F. DNP Yissel MORALES NOTIFIED OF PT. TEMPT. W/ ORDER OK TO GIVE PRBC, OK TO GIVE PRN TYLENOL WHICH WAS PREVIOUSLY ORDERED.
--- NOTE | 2019-11-19 20:46 | NUR ---
SOLAR ENGINEER NOTE PATIENT HAS AN ORDER FOR BLOOD TRANSFUSION DURING DIALYSIS. PATIENT IS SEDATED CONTINUES ON DIPRIVAN. BLOOD PRESSURE AT THIS TIME 138/65, HR-122, RR-28. TEMP-100.0. NO S/S OF PAIN OR ACUTE DISTRESS NOTED. PATIENT IN STABLE CONDITION. ALL SAFETY MEASURES IN PLACE. WILL CONT TO MONITOR. Addendum: 11/19/19 at 2330 by HALEY GALVEZ RN O2 SAT-98%.
[2019-11-19] MEDS: ACETAMINOPHEN 650 MG/20.3 ML UDC NG PRN (20:47)
--- NOTE | 2019-11-19 22:00 | NUR ---
DATA CONVERSION ANALYST NOTE BLOOD TRANSFUSION DONE PATIENT TOLERATED WELL. NO S/S OF REACTION NOTED,VITAL SIGNS BLOOD PRESSURE-98/51, HR-119,RR-29, O2-94% NO S/S OF PAIN NOTED. WILL CONT TO MONITOR.
--- NOTE | 2019-11-19 22:50 | NUR ---
STUDENT ACCOUNTS MANAGER NOTE HEMODIALYSIS DONE AT THIS TIME ABLE TO REMOVE 1L FLUID, BLOOD PRESSURE AT THIS TIME 94/55. PATIENT TOLERATED WELL. PATIENT SEDATED CONTINUES ON DIPRIVAN TOLERATING WELL. ALL SAFETY MEASURES IN PLACE. WILL CONT TO MONITOR.
[2019-11-20] VITALS (26 sets, daily range): BP systolic 86–151; BP diastolic 40–78
[2019-11-20] MEDS: SEVELAMER CARBONATE 0.8 GM POWD.PACK GT SCH ×3 (01:17→16:45)
[2019-11-20 04:17] LABS: BASOPHILS % (AUTO) 0.2 % (0.0-2.0); EOSINOPHILS % (AUTO) 0.4 % (0.0-6.0); HEMATOCRIT 28 % (39-51); HEMOGLOBIN 8.9 g/dL (13.5-17.5); LYMPHOCYTES # (AUTO) 0.4 /CMM (0.8-4.8); MEAN CORPUSCULAR HGB CONC 33 g/dl (31.0-36.0); MEAN CORPUSCULAR VOLUME 91 fL (80-96); MONOCYTES # (AUTO) 1.8 /CMM (0.1-1.30); MONOCYTES % (AUTO) 8.2 % (2.0-12.0); NEUTROPHILS # (AUTO) 19.4 /CMM (1.8-8.9); NEUTROPHILS % (AUTO) 89.2 % (43.0-81.0); PLATELET COUNT (AUTO) 128 /CMM (150-450); RED BLOOD CELL COUNT(AUTO) 3.02 MIL/uL (4.5-6.0); WHITE BLOOD COUNT (AUTO) 21.8 K/uL (4.3-11.0)
[2019-11-20 04:42] LABS: CALCIUM, SERUM 7.8 mg/dL (8.5-10.1); CARBON DIOXIDE 28 mmol/L (21-32); CHLORIDE 106 mmol/L (98-107); CREATININE 3.6 mg/dL (0.6-1.3); GLUCOSE 119 mg/dL (74-106); POTASSIUM 4.3 mmol/L (3.5-5.1); SODIUM SERUM 142 mmol/L (136-145); UREA NITROGEN, BLOOD 89 mg/dL (7-18)
[2019-11-20] MEDS: NEPRO 1,000 ML BOTTLE GT PRN ×2 (05:03→22:42)
[2019-11-20] MEDS ORDERED: VANCOMYCIN 500 MG in IV D5W 100 ML IV PRN (06:00)
[2019-11-20] MEDS: PROPOFOL 100 ML IV PRN ×2 (06:03→16:43)
--- NOTE | 2019-11-20 06:34 | NUR ---
SAMPLE EXAMINER NOTE PATIENT REMAINS STABLE THROUGH OUT THE NIGHT. NO S/S OF ACUTE DISTRESS NOTED. INTUBATED ON DIPRIVAN TOLERATING WELL. DUE MEDICATIONS WERE GIVEN TOLERATED WELL. F/C INTACT YELLOW URINE RUNNING WITH GRAVITY. DIALYSIS DONE ABLE TO REMOVE 1L FLUID PATIENT TOLERATED WELL. KEPT CLEAN AND COMFORTABLE, SAFETY MEASURES IN PLACE, CALL LIGHT WITHIN REACH. WILL ENDORSE TO AM NURSE FOR HAO.
--- NOTE | 2019-11-20 07:49 | NUR ---
rn initial notes received pt sedated, remains intubated with vent settings well tolerated. ngt in plACE; feeding on going, hobkept elevated. sinus tach on the monitor. remains on isolation precautions. yusuf draining thru gravity. safety ensured. filemon picc line secured with intact dressing. will conitnue to monitor.
[2019-11-20 07:57] LABS: ABG BASE EXCESS -0.5 mmol/L; ABG PCO2 38.3 mmHg (35.0-45.0); ABG PH 7.414 (7.350-7.450); ABG PO2 79.9 mmHg (75.0-100.0); AaDO2 233.5 mmHg; COHb 1.2 % (0.5-1.5); MetHb 0.1 % (0.0-1.5); O2Hb 92.8 % (94.0-97.0); SITE, ABG Left Radial; VENT MODE, BG AC 28 500 50% +8
[2019-11-20] MEDS: PANTOPRAZOLE 40 MG/PACK PACK NG SCH (09:51)
[2019-11-20] MEDS: CLOPIDOGREL BISULFATE 75 MG TABLET PO SCH (09:52)
--- NOTE | 2019-11-20 10:34 | NUR ---
RT NOTE: PATIENT RECEIVED ORALLY INTUBATED WITH 7.5 ETT SECURED AT 27 CM MID LIP LINE ON MECHANICAL VENT. ALARMS VERIFIED AND AUDIBLE. VENT PLUGGED INTO RED OUTLET. AMBU BAG AT [facility].
[2019-11-20] MEDS: PROSOURCE / PROSTAT (PYXIS) 30 ML UDC GT SCH (16:43)
--- NOTE | 2019-11-20 19:03 | NUR ---
rn closing notes pt remains sedated, propofol infusing. remains on mech vent; settings well tolerated. ngt in place; feeding on going; aspiration precaution observed. turned and repositioned. meds given thru patent gt. remains on siolation. endorsed to next shift rn in stable condition for continuity of care.
--- NOTE | 2019-11-20 19:15 | NUR ---
RN OPENING NOTES: PATIENT IN BED, INTUBATED, TOLERATING CURRENT SETTINGS WELL. NO RESPIRATORY DISTRESS. NGT IN PLACE, TOLERATING FEEDING, HOB ELEVATED. CANDIDO PICC LINE C/D/I. FLUSHING WELL. BATISTA INTACT AND PATENT, DRAINING URINE. SAFETY PRECAUTIONS IMPLEMENTED. WILL TURN AND REPOSITION Q2H. BED LOCKED, LOW POSITION, SIDE RAILS X 2 UP. WILL CONT. TO MONITOR.
--- NOTE | 2019-11-20 20:09 | NUR ---
PT RECEIVED ORALLY INTUBATED WITH 7.5 ET TUBE SECURED @ 27 CM LIP LINE ON VENT WITH NOTED SETTINGS. CUFF CHECKED VIA MOLDING AND TRIM INSTALLER. AMBU BAG @ HOB. SX DONE, ET TUBE SECURED AND PATENT. ALARMS ON AND AUDIBLE. VENT PLUGGED TO RED OUTLET. NO RESPIRATORY DISTRESS NOTED AT THIS TIME. WILL CONTINUE TO MONITOR THE PT T/O SHIFT
[2019-11-20] MEDS: MICAFUNGIN SODIUM 100 MG in IV NS 0.9% 100 ML IV SCH (20:48)
[2019-11-20] MEDS: DAKINS QUARTER STRENGTH (0.125%) 480 ML BOTTLE TOP SCH (20:48)
[2019-11-20] MEDS: TAMSULOSIN 0.4 MG CAP.SR.24H PO SCH (21:20)
[2019-11-21] VITALS (59 sets, daily range): BP systolic 71–140; BP diastolic 39–69
[2019-11-21] MEDS: PROPOFOL 100 ML IV PRN ×3 (00:08→19:05)
[2019-11-21] MEDS: SEVELAMER CARBONATE 0.8 GM POWD.PACK GT SCH ×3 (02:24→18:47)
[2019-11-21 05:01] LABS: BASOPHILS # (AUTO) 0.1 /CMM (0.0-0.2); BASOPHILS % (AUTO) 0.3 % (0.0-2.0); EOSINOPHILS % (AUTO) 2.3 % (0.0-6.0); HEMATOCRIT 27 % (39-51); HEMOGLOBIN 8.4 g/dL (13.5-17.5); LYMPHOCYTES # (AUTO) 0.3 /CMM (0.8-4.8); LYMPHOCYTES % (AUTO) 1.5 % (20.0-44.0); MEAN CORPUSCULAR HGB CONC 32 g/dl (31.0-36.0); MEAN CORPUSCULAR VOLUME 91 fL (80-96); MONOCYTES # (AUTO) 1.7 /CMM (0.1-1.30); MONOCYTES % (AUTO) 9.5 % (2.0-12.0); NEUTROPHILS # (AUTO) 15.8 /CMM (1.8-8.9); NEUTROPHILS % (AUTO) 86.4 % (43.0-81.0); PLATELET COUNT (AUTO) 123 /CMM (150-450); WHITE BLOOD COUNT (AUTO) 18.3 K/uL (4.3-11.0)
[2019-11-21 05:23] LABS: CALCIUM, SERUM 7.8 mg/dL (8.5-10.1); CARBON DIOXIDE 23 mmol/L (21-32); CHLORIDE 108 mmol/L (98-107); CREATININE 4.2 mg/dL (0.6-1.3); GLUCOSE 85 mg/dL (74-106); POTASSIUM 4.2 mmol/L (3.5-5.1); SODIUM SERUM 143 mmol/L (136-145); UREA NITROGEN, BLOOD 111 mg/dL (7-18)
--- NOTE | 2019-11-21 06:30 | NUR ---
RN NOTE: CARMEN MCCOY MADE AWARE OF BUN 111. NNO.
--- NOTE | 2019-11-21 06:56 | NUR ---
RN CLOSING NOTES: PATIENT IN BED, ORALLY INTUBATED, TOLERATING CURRENT VENT SETTINGS. NO RESPIRATORY DISTRESS. O2 SAT >95%. NO S/S OF PAIN. SAFETY PRECAUTIONS IMPLEMENTED DURING SHIFT. TURNED AND REPOSITIONED Q2H. ENDORSE TO AM SHIFT NURSE FOR CONTINUITY OF CARE.
[2019-11-21] MEDS: PANTOPRAZOLE 40 MG/PACK PACK NG SCH (09:15)
[2019-11-21] MEDS: CLOPIDOGREL BISULFATE 75 MG TABLET PO SCH (09:15)
[2019-11-21] MEDS: PROSOURCE / PROSTAT (PYXIS) 30 ML UDC GT SCH (09:17)
[2019-11-21] MEDS: ACETAMINOPHEN 650 MG/20.3 ML UDC NG PRN (12:02)
[2019-11-21] MEDS: PHENYLEPHRINE 100 MG in IV NS 0.9% 240 ML IV PRN (18:45)
--- NOTE | 2019-11-21 20:03 | NUR ---
RT NOTE PT RECEIVED INTUBATED WITH @ 7.5 ET TUBE WITH 27 CM. AMBU BAG @ HOB. SX DONE, ET TUBE SECURED AND PATENT. ALARMS ON AND AUDIBLE. VENT PLUGGED TO RED OUTLET. NO DISTRESS NOTED. WILL MONITOR T/O SHIFT. Addendum: 11/21/19 at 2002 by SHERLYN ABRAMS RT Amended: Links added.
[2019-11-21] MEDS: MICAFUNGIN SODIUM 100 MG in IV NS 0.9% 100 ML IV SCH (21:30)
[2019-11-21] MEDS: DAKINS QUARTER STRENGTH (0.125%) 480 ML BOTTLE TOP SCH (21:30)
[2019-11-21] MEDS: TAMSULOSIN 0.4 MG CAP.SR.24H PO SCH (21:30)
[2019-11-22] VITALS (49 sets, daily range): BP systolic 99–144; BP diastolic 20–76
[2019-11-22] MEDS: SEVELAMER CARBONATE 0.8 GM POWD.PACK GT SCH ×3 (02:27→18:01)
[2019-11-22] MEDS: PROPOFOL 100 ML IV PRN ×3 (04:45→17:12)
[2019-11-22 05:21] LABS: BASOPHILS # (AUTO) 0.1 /CMM (0.0-0.2); BASOPHILS % (AUTO) 0.5 % (0.0-2.0); EOSINOPHILS % (AUTO) 2.1 % (0.0-6.0); HEMATOCRIT 26 % (39-51); HEMOGLOBIN 8.3 g/dL (13.5-17.5); LYMPHOCYTES # (AUTO) 0.4 /CMM (0.8-4.8); LYMPHOCYTES % (AUTO) 1.9 % (20.0-44.0); MEAN CORPUSCULAR HGB CONC 32 g/dl (31.0-36.0); MEAN CORPUSCULAR VOLUME 91 fL (80-96); MONOCYTES # (AUTO) 1.6 /CMM (0.1-1.30); MONOCYTES % (AUTO) 8.3 % (2.0-12.0); NEUTROPHILS # (AUTO) 17.4 /CMM (1.8-8.9); NEUTROPHILS % (AUTO) 87.2 % (43.0-81.0); PLATELET COUNT (AUTO) 137 /CMM (150-450); RED BLOOD CELL COUNT(AUTO) 2.85 MIL/uL (4.5-6.0); WHITE BLOOD COUNT (AUTO) 19.9 K/uL (4.3-11.0)
[2019-11-22 05:37] LABS: CALCIUM, SERUM 7.9 mg/dL (8.5-10.1); CARBON DIOXIDE 24 mmol/L (21-32); CHLORIDE 106 mmol/L (98-107); CREATININE 4.6 mg/dL (0.6-1.3); GLUCOSE 111 mg/dL (74-106); SODIUM SERUM 144 mmol/L (136-145)
[2019-11-22 05:39] LABS: UREA NITROGEN, BLOOD 127 mg/dL (7-18)
[2019-11-22] MEDS: NEPRO 1,000 ML BOTTLE GT PRN (07:12)
[2019-11-22 07:55] LABS: BAND % (MANUAL) 2 % (0.0-5.0); EOSINOPHILS % (MANUAL) 2 % (0-4); LYMPHOCYTES % (MANUAL) 1 % (16-48); MONOCYTES % (MANUAL) 7 % (0-11.0); MYELOCYTES % 1 % (0-0); NEUTROPHILS % (MANUAL) 87 (42-76)
--- NOTE | 2019-11-22 08:01 | NUR ---
RN OPENING NOTES RECEIVED PATIENT RESTING IN BED COMFORTABLY, NO S.SX OF DISTRESS AT THIS TIME. PT IS OBTUNDED, SEDATED, AND ON MECHANICAL VENT, TOLERATING SETTINGS WELL. 7.5 ET TUBE, 27 CM AT THE LIP. NG TUBE ON L NARE, INTACT, INFUSING NEPRO AT 40 ML.HR, TOLERATING WELL. CANDIDO PICC IS PATENT AND INTACT, INFUSING DIPRIVAN AT 20 MCG/MIN. R FEMORAL HD CATH IS INTACT. SAFETY MEASURES HAVE BEEN IMPLEMENTED, CALL LIGHT IS WITHIN REACH, BED IS IN LOWEST AND LOCKED POSITION, SIDE RAILS UP X2, WILL CONTINUE TO MONITOR FOR ANY CHANGES.
[2019-11-22] MEDS: CLOPIDOGREL BISULFATE 75 MG TABLET PO SCH (08:20)
[2019-11-22] MEDS: PANTOPRAZOLE 40 MG/PACK PACK NG SCH (08:20)
[2019-11-22] MEDS: PROSOURCE / PROSTAT (PYXIS) 30 ML UDC GT SCH (08:21)
[2019-11-22] MEDS: ACETAMINOPHEN 650 MG/20.3 ML UDC NG PRN (08:26)
--- NOTE | 2019-11-22 09:25 | NUR ---
RT NOTE: PATIENT RECEIVED ORALLY INTUBATED WITH 7.5 ETT SECURED AT 27 CM MID LIP LINE ON MECHANICAL VENT. ALARMS VERIFIED AND AUDIBLE. VENT PLUGGED INTO RED OUTLET. AMBU BAG AT [facility].
--- NOTE | 2019-11-22 09:59 | NUR ---
RN NOTES SPOKE WITH STEP-SON REGARDING FAMILY WISHES. FAMILY WANTS PT TO HAVE TRACH PLACEMENT. PT'S STEP-SON ALSO WISHES TO SPEAK WITH PROVIDERS, SENT MESSAGE TO DR. SANDERSON AND DR. QUIÑONEZ WITH CONTACT INFO
--- NOTE | 2019-11-22 19:23 | NUR ---
RN CLOSING NOTES PATIENT IS RESTING IN BED COMFORTABLY. ON DIPRIVAN AT 20 MCG/MIN . TOLERATING WELL. NG TUBE INTAKE. [facility], NO RESP DISTRESS NOTED. NO ACUTE CHANGES OCCURRED THROUGHOUT THE SHIFT, VITAL SIGNS ARE STABLE, PT NEEDS HAVE BEEN MET. SAFETY MEASURES HAVE BEEN IMPLEMENTED, CALL LIGHT IS WITHIN REACH, BED IS IN LOWEST AND LOCKED POSITION, SIDE RAILS UP X2, PT HAS BEEN ENDORSED TO NIGHTSHIFT RN FOR HAO.
--- NOTE | 2019-11-22 20:00 | NUR ---
ADVANCED DEVELOPER. INITIAL ASSESSMENT. RECEIVED THE PT REST ON THE BED ORALLY INTUBATED. SEDATED WITH DIPRIVAN,ETT 7.5,LIP 28,AC 28,PEEP 8. SAT 95%PURCHASE PRICE ANALYST SHOWING NSR. IV RT UPPER ARM PICC LINE. DIPRIVAN 20MCG/KG/MIN.FC PATENT NEPRO 45ML/H. HOB ELEVATED. AFEBRILE,, WILL CONTINUE TO MONITOR VITALS.
[2019-11-22] MEDS: MICAFUNGIN SODIUM 100 MG in IV NS 0.9% 100 ML IV SCH (21:52)
[2019-11-22] MEDS: TAMSULOSIN 0.4 MG CAP.SR.24H PO SCH (21:52)
[2019-11-22] MEDS: DAKINS QUARTER STRENGTH (0.125%) 480 ML BOTTLE TOP SCH (21:52)
[2019-11-23] VITALS (60 sets, daily range): BP systolic 80–145; BP diastolic 32–77
[2019-11-23] MEDS: NEPRO 1,000 ML BOTTLE GT PRN (00:01)
[2019-11-23] MEDS: IV NS 0.9% 250 ML IV PRN (03:39)
[2019-11-23] MEDS: SEVELAMER CARBONATE 0.8 GM POWD.PACK GT SCH ×3 (04:32→17:37)
[2019-11-23 05:10] LABS: BASOPHILS % (AUTO) 0.2 % (0.0-2.0); EOSINOPHILS % (AUTO) 2.7 % (0.0-6.0); HEMATOCRIT 26 % (39-51); HEMOGLOBIN 8.1 g/dL (13.5-17.5); LYMPHOCYTES # (AUTO) 0.3 /CMM (0.8-4.8); LYMPHOCYTES % (AUTO) 1.6 % (20.0-44.0); MEAN CORPUSCULAR HGB CONC 31 g/dl (31.0-36.0); MEAN CORPUSCULAR VOLUME 93 fL (80-96); MONOCYTES # (AUTO) 1.2 /CMM (0.1-1.30); MONOCYTES % (AUTO) 6.5 % (2.0-12.0); NEUTROPHILS # (AUTO) 15.9 /CMM (1.8-8.9); PLATELET COUNT (AUTO) 134 /CMM (150-450); RED BLOOD CELL COUNT(AUTO) 2.79 MIL/uL (4.5-6.0); WHITE BLOOD COUNT (AUTO) 17.9 K/uL (4.3-11.0)
--- NOTE | 2019-11-23 05:30 | NUR ---
NATURAL RESOURCES MANAGER. CLOSING NOTE. REMAINING SAME VENT SETTING TOLERATED WELL. SAT 98%. RENDERER SHOWING S TACH WITH BBB. IV RT UPPERARM PICC LINE DIPRIVAN 20MCG/KG/MIN, FC PATENT. URINE DRAINING/ TEMPERATURE IS 99.5NGT FEEDING TOLERATED WELL. HOB ELEVATED. TURN AND REPOSITION Q2H. WILL CONTINUE TO MONITOR VITALS.
[2019-11-23 05:40] LABS: BAND % (MANUAL) 5 % (0.0-5.0); EOSINOPHILS % (MANUAL) 4 % (0-4); LYMPHOCYTES % (MANUAL) 2 % (16-48); MONOCYTES % (MANUAL) 5 % (0-11.0); MYELOCYTES % 3 % (0-0); NEUTROPHILS % (MANUAL) 81 (42-76)
--- NOTE | 2019-11-23 05:44 | NUR ---
PATIENT RECEIVED WITH ETT 7.5 @ 27 cm AT THE LIP WITH SETTINGS OF AC 28, 500 VT, 50%, +8. SUCTIONED WITH LAVAGE FOR MODERATE, THICK, WHITE SECRETIONS. AMBU BAG AT BEDSIDE. VENT ALARM AUDIBLE AND VISIBLE. VENT PLUGGED INTO RED OUTLET. HME CHANGED. Addendum: 11/23/19 at 0545 by SCOUT HOGAN RT Amended: Links added.
--- NOTE | 2019-11-23 07:45 | NUR ---
RN OPENING NOTE Received patient asleep in bed. Intubated and sedated. No signs of distress. Has L nare NG tube running Nepro 40ml/hr. On Diprivan drip at 20mcg/min. BP is low in 80 mmHg. Ordered Levophed from pharmacy. Pt on a yusuf catheter. Safety measure reinforced. Siderails up x2. Bed locked and on lowest position. Will cont to monitor.
--- NOTE | 2019-11-23 08:07 | NUR ---
RN NOTE Called Engr. Dept to follow up on the sink in the patient's room. Left a message. Will follow up.
--- NOTE | 2019-11-23 08:38 | NUR ---
RN NOTE Received Order form from Labs for Plasma. Will have Dr. Gayle sign.
[2019-11-23] MEDS: PROSOURCE / PROSTAT (PYXIS) 30 ML UDC GT SCH (09:28)
[2019-11-23] MEDS: CLOPIDOGREL BISULFATE 75 MG TABLET PO SCH (09:29)
[2019-11-23] MEDS: PANTOPRAZOLE 40 MG/PACK PACK NG SCH (09:29)
--- NOTE | 2019-11-23 09:43 | NUR ---
RN NOTE IND FORM for Conv Plasma signed by Dr. Gayle. Faxed to Lab. Lab confirmed they received it.
[2019-11-23 09:46] LABS: ABG BASE EXCESS -2.8 mmol/L; ABG OXYGEN SATURATION 94.6 % (92.0-98.5); ABG PH 7.356 (7.350-7.450); ABG PO2 85.4 mmHg (75.0-100.0); COHb 0.9 % (0.5-1.5); MetHb 0.5 % (0.0-1.5); O2Hb 93.3 % (94.0-97.0); PEEP,BG 5 cm H2O; SITE, ABG Right Radial; VT, ABG 500 mL
[2019-11-23] MEDS: PROPOFOL 100 ML IV PRN ×2 (11:22→21:26)
--- NOTE | 2019-11-23 11:33 | NUR ---
RN NOTE Patient was transferred from 259 to room 260 in stable condition. Tolerated well.
--- NOTE | 2019-11-23 12:13 | NUR ---
RN NOTE Informed dialysis nurse that patient is now moved to 260 with a working sink.
[2019-11-23] MEDS: ACETAMINOPHEN 650 MG/20.3 ML UDC NG PRN (13:15)
--- NOTE | 2019-11-23 13:29 | NUR ---
RN NOTE Informed Dr. Smith of patient's HR fluctuating from 120-140bpm. No new orders.
[2019-11-23] MEDS: PHENYLEPHRINE 100 MG in IV NS 0.9% 240 ML IV PRN (15:47)
--- NOTE | 2019-11-23 18:55 | NUR ---
RN CLOSING NOTE Patient is in bed sedated. On ET tube and ventilator. Settings as followed AC 28 TV 500 FiO2 70% PEEP 5. Tolerating well. Tele reading ST fluctuating from 130 to 150bpm. Informed MD no new orders. Patient on Nepro @40ml/hr on L Nare tolerating well. Patient has CANDIDO PICC line running Fernie and Propofol. R Femoral HD dressing intact. Hemodiaysis done cleaning only no output taken. Informed family Dr. Gayle will possibly do tracheostomy depending of Covid results. Safety measures implemented. Siderails up x2. Bed locked and on lowest position. . Will endorse to police shift commander nurse for clementine.
--- NOTE | 2019-11-23 19:40 | NUR ---
DENTAL SURGEON OPENING NOTE, RECEIVED PATIENT SEDATED ON VENTILATION, TOLERATING VENT SETTING WELL, NO SOB OR ACUTE DISTRESS NOTED AT THIS TIME. AT ON BED SIDE MONITOR IN 130-140S. PER AM RN NO NEW ORDERS FROM MD. PATIENT HAS CONTINUES NG TUBE FEEDING ON LEFT NARE.. NEPRO AT 40ML/HR. TOLERATING WELL. NOTED RU PICC LINE RUNNING LAMONTE @1.0 AND PROPOFOL @20 MCG/KG/MIN. RF HD CATH HAS INTACT DRESSING . ALL SAFETY MEASURES IMPLEMENTED, BED IN LOW LOCKED POSITION. SIDE RAIS UP X2. WILL CONTINUE TO MONITOR CLOSELY.
[2019-11-23] MEDS: TAMSULOSIN 0.4 MG CAP.SR.24H PO SCH (21:16)
[2019-11-23] MEDS: DAKINS QUARTER STRENGTH (0.125%) 480 ML BOTTLE TOP SCH (21:17)
[2019-11-24] VITALS (90 sets, daily range): BP systolic 75–144; BP diastolic 37–67
[2019-11-24] MEDS: SEVELAMER CARBONATE 0.8 GM POWD.PACK GT SCH ×3 (01:58→18:32)
[2019-11-24 04:39] LABS: BASOPHILS # (AUTO) 0.1 /CMM (0.0-0.2); BASOPHILS % (AUTO) 0.4 % (0.0-2.0); HEMATOCRIT 22 % (39-51); LYMPHOCYTES # (AUTO) 0.4 /CMM (0.8-4.8); LYMPHOCYTES % (AUTO) 3.5 % (20.0-44.0); MEAN CORPUSCULAR HGB CONC 31 g/dl (31.0-36.0); MEAN CORPUSCULAR VOLUME 93 fL (80-96); MONOCYTES % (AUTO) 8.5 % (2.0-12.0); NEUTROPHILS # (AUTO) 9.9 /CMM (1.8-8.9); NEUTROPHILS % (AUTO) 85.6 % (43.0-81.0); PLATELET COUNT (AUTO) 134 /CMM (150-450); WHITE BLOOD COUNT (AUTO) 11.6 K/uL (4.3-11.0)
[2019-11-24 04:55] LABS: CALCIUM, SERUM 7.7 mg/dL (8.5-10.1); CARBON DIOXIDE 28 mmol/L (21-32); CHLORIDE 111 mmol/L (98-107); GLUCOSE 99 mg/dL (74-106); SODIUM SERUM 148 mmol/L (136-145)
[2019-11-24 04:56] LABS: UREA NITROGEN, BLOOD 102 mg/dL (7-18)
--- NOTE | 2019-11-24 05:50 | NUR ---
RT NOTE Patient received orally intubated on mechanical ventilation on noted vent settings. Alarms are set and audible.ETT tube patent and secured.No distress noted throughout the shift. Ambubag at [facility] , vent plugged into red outlet. Will continue to monitor patient. Addendum: 11/24/19 at 0553 by YE HANSON RT Amended: Links added.
--- NOTE | 2019-11-24 06:20 | NUR ---
PATIENT H/H IS 02/17. GOT THE CRITICAL RESULTS FROM LAB. CHARGE NURSE NOTIFIED. WILL NOTIFY THE AM RN.
[2019-11-24] MEDS: PROPOFOL 100 ML IV PRN ×3 (06:47→20:12)
--- NOTE | 2019-11-24 07:38 | NUR ---
PUBLIC SERVICE ADMINISTRATOR CLOSING NOTE, PATIENT SEDATED ON VENTILATION, TOLERATING VENT SETTING WELL, NO SOB OR ACUTE DISTRESS NOTED AT THIS TIME. ST ON BED SIDE MONITOR IN 110S. PATIENT HAS CONTINUES NG TUBE FEEDING ON RIGHT NARE.. NEPRO AT 40ML/HR. TOLERATING WELL. NOTED RU PICC LINE RUNNING LAMONTE @1.0 AND PROPOFOL @20 MCG/KG/MIN. RF HD CATH HAS INTACT DRESSING . ALL SAFETY MEASURES IMPLEMENTED, BED IN LOW LOCKED POSITION. SIDE RAIS UP X2. ENDORSED THE PATIENT TO AM RN FOR HAO.
[2019-11-24] MEDS: PHENYLEPHRINE 100 MG in IV NS 0.9% 240 ML IV PRN (08:03)
[2019-11-24] MEDS: CLOPIDOGREL BISULFATE 75 MG TABLET PO SCH (08:04)
[2019-11-24] MEDS: PANTOPRAZOLE 40 MG/PACK PACK NG SCH (08:04)
[2019-11-24] MEDS: PROSOURCE / PROSTAT (PYXIS) 30 ML UDC GT SCH (08:04)
[2019-11-24] MEDS: ACETAMINOPHEN 650 MG/20.3 ML UDC NG PRN (08:10)
--- NOTE | 2019-11-24 19:46 | NUR ---
LAB CLERK OPENING NOTE, RECEIVED PATIENT SEDATED ON VENTILATION, TOLERATING VENT SETTING WELL, NO SOB OR ACUTE DISTRESS NOTED AT THIS TIME. ST ON BEDSIDE MONITOR IN 98. PATIENT HAS CONTINUES NG TUBE FEEDING ON RIGHT NARE, NEPRO AT 40ML/HR. TOLERATING WELL. NOTED RU PICC LINE RUNNING LAMONTE @1.0 AND PROPOFOL @30 MCG/KG/MIN. RF HD CATH HAS INTACT DRESSING . FC DRAINING TO THE GRAVITY CLOUDY YELLOW URINE. COVID (+), RESULTS FOR REPEATED TEST FOR COVID IS PENDING. ALL SAFETY MEASURES IMPLEMENTED, BED IN LOW LOCKED POSITION. SIDE RAIS UP X2. WILL CONTINUE TO MONITOR THE PATIENT.
[2019-11-24] MEDS: DAKINS QUARTER STRENGTH (0.125%) 480 ML BOTTLE TOP SCH (21:10)
[2019-11-24] MEDS: TAMSULOSIN 0.4 MG CAP.SR.24H PO SCH (22:22)
[2019-11-25] VITALS (100 sets, daily range): BP systolic 65–164; BP diastolic 34–94
[2019-11-25] MEDS: SEVELAMER CARBONATE 0.8 GM POWD.PACK GT SCH ×3 (02:26→17:42)
[2019-11-25] MEDS: PROPOFOL 100 ML IV PRN ×4 (02:27→21:08)
[2019-11-25 04:41] LABS: BASOPHILS % (AUTO) 0.3 % (0.0-2.0); EOSINOPHILS % (AUTO) 3.6 % (0.0-6.0); HEMATOCRIT 21 % (39-51); LYMPHOCYTES # (AUTO) 0.4 /CMM (0.8-4.8); LYMPHOCYTES % (AUTO) 2.7 % (20.0-44.0); MEAN CORPUSCULAR HGB CONC 32 g/dl (31.0-36.0); MEAN CORPUSCULAR VOLUME 93 fL (80-96); MONOCYTES # (AUTO) 1.1 /CMM (0.1-1.30); MONOCYTES % (AUTO) 7.1 % (2.0-12.0); NEUTROPHILS % (AUTO) 86.3 % (43.0-81.0); PLATELET COUNT (AUTO) 136 /CMM (150-450); RED BLOOD CELL COUNT(AUTO) 2.23 MIL/uL (4.5-6.0); WHITE BLOOD COUNT (AUTO) 16.2 K/uL (4.3-11.0)
[2019-11-25 04:47] LABS: CALCIUM, SERUM 7.7 mg/dL (8.5-10.1); CARBON DIOXIDE 27 mmol/L (21-32); CHLORIDE 111 mmol/L (98-107); CREATININE 4.6 mg/dL (0.6-1.3); GLUCOSE 116 mg/dL (74-106); POTASSIUM 3.6 mmol/L (3.5-5.1); SODIUM SERUM 149 mmol/L (136-145)
[2019-11-25 04:48] LABS: UREA NITROGEN, BLOOD 112 mg/dL (7-18)
[2019-11-25] MEDS: PHENYLEPHRINE 100 MG in IV NS 0.9% 240 ML IV PRN ×2 (04:52→23:53)
[2019-11-25 06:42] LABS: HEMOGLOBIN 6.6 g/dL (13.5-17.5)
[2019-11-25 06:43] LABS: EOSINOPHILS % (MANUAL) 3 % (0-4); LYMPHOCYTES % (MANUAL) 3 % (16-48); MONOCYTES % (MANUAL) 5 % (0-11.0); NEUTROPHILS % (MANUAL) 89 (42-76)
--- NOTE | 2019-11-25 07:24 | NUR ---
CONTINUOUS IMPROVEMENT ENGINEER CLOSING NOTE, PATIENT SEDATED ON VENTILATION, TOLERATING VENT SETTING WELL, NO SOB OR ACUTE DISTRESS NOTED AT THIS TIME. ST ON BEDSIDE MONITOR IN 106. PATIENT HAS CONTINUES NG TUBE FEEDING ON RIGHT NARE, NEPRO AT 40ML/HR. TOLERATING WELL. NOTED RU PICC LINE RUNNING LAMONTE @1.0 AND PROPOFOL @30 MCG/KG/MIN. RF HD CATH HAS INTACT DRESSING . FC DRAINING TO THE GRAVITY CLOUDY YELLOW URINE. COVID (+), RESULTS FOR REPEATED TEST FOR COVID IS PENDING. ALL SAFETY MEASURES IMPLEMENTED, BED IN LOW LOCKED POSITION. SIDE RAILS UP X2. ENDORSED THE PATIENT TO AM RN FOR HAO,
[2019-11-25] MEDS: PANTOPRAZOLE 40 MG/PACK PACK NG SCH (08:37)
[2019-11-25] MEDS: CLOPIDOGREL BISULFATE 75 MG TABLET PO SCH (08:38)
[2019-11-25] MEDS: PROSOURCE / PROSTAT (PYXIS) 30 ML UDC GT SCH (08:38)
[2019-11-25] MEDS ORDERED: POTASSIUM CHLORIDE 20 MEQ TAB.PRT.SR PO SCH (09:00)
[2019-11-25 09:11] LABS: ABG BASE EXCESS -2.5 mmol/L; ABG OXYGEN SATURATION 97.3 % (92.0-98.5); ABG PCO2 43.9 mmHg (35.0-45.0); ABG PH 7.339 (7.350-7.450); ABG PO2 128.1 mmHg (75.0-100.0); AaDO2 323.8 mmHg; COHb 1.9 % (0.5-1.5); MetHb 0.5 % (0.0-1.5); PEEP,BG 8 cm H2O; SITE, ABG Right Radial; VT, ABG 500 mL
--- NOTE | 2019-11-25 11:36 | NUR ---
PLASMA F/U per Paulette from [facility] [place] does not have any plasma available at this time, they will let us know when they do
--- NOTE | 2019-11-25 11:37 | NUR ---
Cristóbal Delatorre. family member requesting Plaquenil, Zinc + azithromycin to be (re)started. Will endorse to ID specialist
--- NOTE | 2019-11-25 13:41 | NUR ---
per son Cristóbal from [facility] patient is to be full code. Spoke to RN Itzel Gong confirming, cosigned code status change, removed DNR sticker from monitor
[2019-11-25] MEDS: ACETAMINOPHEN 650 MG/20.3 ML UDC NG PRN (17:46)
--- NOTE | 2019-11-25 19:15 | NUR ---
Per Eliza PARMAR APICULTURE TEACHER, plaquenil restart requires approval from Dr. Smith. Son Cristóbal from [facility] wants patient to be full code. Telephone verified with Itzel Gong RN and order placed. However, it was changed by Dr. Grant. Night RN + charge gang weigher aware, call to Dr. Grant endorsed to magdalena RN Addendum: 11/25/19 at 2042 by JOSE PHILLIPS RN I PAGED DR GRANT REGARDING PATIENTS CODE STATUS. DARIUS TRISTAN CALLED BACK, EXPLAINED HER THE PATIENTS FAMILY'S WISH WHO ARE REQUESTING FULL CODE STATUS. SHE ASKED ME TO CHANGE THE CODE STATUS TO FULL CODE AND DOCUMENT IT AND ASK RETAIL SERVICE LEAD MERCHANDISER TO FOLLOW UP WITH THE FAMILY IN THE MORNING.
--- NOTE | 2019-11-25 19:18 | NUR ---
BLACK OFF WORKER - closing Shift summary - patient does not open eyes/track, follow command or move extremities. COVID swab redone today and sent to lab. yusuf draining to gravity. no BM. Dialysis completed, 0 out. CANDIDO PICC infusing DIP@30mcg/kg/min, jigna@1mcg/kg/min. Tylenol given. Rectal tube in place. Restraints off.
--- NOTE | 2019-11-25 19:30 | NUR ---
BACK SIZER OPENING NOTE, RECEIVED PATIENT SEDATED ON VENTILATION, TOLERATING VENT SETTING WELL, NO SOB OR ACUTE DISTRESS NOTED AT THIS TIME. ST ON BEDSIDE MONITOR IN 98. PATIENT HAS CONTINUES NG TUBE FEEDING ON RIGHT NARE, NEPRO AT 40ML/HR. TOLERATING WELL. NOTED RU PICC LINE RUNNING LAMONTE @1.0 AND PROPOFOL @30 MCG/KG/MIN. RF HD CATH HAS INTACT DRESSING .2 UNITS OF RBC GIVEN AND DIALYSIS DOME DURING DAY SHIFT NO OUTPUT . FC DRAINING TO THE GRAVITY CLOUDY YELLOW URINE. COVID (+), RESULTS FOR REPEATED TEST FOR COVID IS PENDING. ALL SAFETY MEASURES IMPLEMENTED, BED IN LOW LOCKED POSITION. SIDE RAILS UP X2. WILL CONTINUE TO MONITOR THE PATIENT.
[2019-11-25] MEDS: HYDROXYCHLOROQUINE 200 MG/8 ML SUSPENSION NG SCH (20:28)
[2019-11-25] MEDS: DAKINS QUARTER STRENGTH (0.125%) 480 ML BOTTLE TOP SCH (21:07)
[2019-11-25] MEDS: TAMSULOSIN 0.4 MG CAP.SR.24H PO SCH (21:44)
[2019-11-26] VITALS (93 sets, daily range): BP systolic 77–142; BP diastolic 35–70
[2019-11-26] MEDS: SEVELAMER CARBONATE 0.8 GM POWD.PACK GT SCH ×3 (02:10→16:46)
[2019-11-26] MEDS: PROPOFOL 100 ML IV PRN ×4 (03:37→20:37)
[2019-11-26 04:57] LABS: BASOPHILS # (AUTO) 0.1 /CMM (0.0-0.2); BASOPHILS % (AUTO) 0.4 % (0.0-2.0); EOSINOPHILS % (AUTO) 3.2 % (0.0-6.0); HEMATOCRIT 27 % (39-51); HEMOGLOBIN 8.7 g/dL (13.5-17.5); LYMPHOCYTES # (AUTO) 0.4 /CMM (0.8-4.8); LYMPHOCYTES % (AUTO) 2.4 % (20.0-44.0); MEAN CORPUSCULAR HGB CONC 33 g/dl (31.0-36.0); MEAN CORPUSCULAR VOLUME 91 fL (80-96); MONOCYTES # (AUTO) 0.8 /CMM (0.1-1.30); MONOCYTES % (AUTO) 4.5 % (2.0-12.0); NEUTROPHILS # (AUTO) 15.2 /CMM (1.8-8.9); NEUTROPHILS % (AUTO) 89.5 % (43.0-81.0); PLATELET COUNT (AUTO) 107 /CMM (150-450); RED BLOOD CELL COUNT(AUTO) 2.94 MIL/uL (4.5-6.0); WHITE BLOOD COUNT (AUTO) 16.9 K/uL (4.3-11.0)
[2019-11-26 05:26] LABS: ALANINE AMINOTRANSFERASE 16 U/L (12-78); ALKALINE PHOSPHATASE 110 U/L (46-116); ASPARTATE AMINOTRANSFERASE 32 U/L (15-37); BILIRUBIN,TOTAL 0.6 mg/dL (0.2-1.0); CALCIUM, SERUM 7.8 mg/dL (8.5-10.1); CARBON DIOXIDE 29 mmol/L (21-32); CHLORIDE 110 mmol/L (98-107); CREATININE 3.7 mg/dL (0.6-1.3); GLUCOSE 97 mg/dL (74-106); MAGNESIUM 2.4 mg/dL (1.8-2.4); PHOSPHORUS 5.6 mg/dL (2.5-4.9); POTASSIUM 3.6 mmol/L (3.5-5.1); SODIUM SERUM 147 mmol/L (136-145); TOTAL PROTEIN, SERUM 5.1 g/dL (6.4-8.2)
[2019-11-26 05:33] LABS: ALBUMIN 0.9 g/dL (3.4-5.0); UREA NITROGEN, BLOOD 92 mg/dL (7-18)
--- NOTE | 2019-11-26 07:19 | NUR ---
NEW BUSINESS CLERK CLOSING NOTE, PATIENT SEDATED ON VENTILATION, TOLERATING VENT SETTING WELL, NO SOB OR ACUTE DISTRESS NOTED AT THIS TIME. ST ON BEDSIDE MONITOR IN 106. PATIENT HAS CONTINUES NG TUBE FEEDING ON RIGHT NARE, NEPRO AT 40ML/HR. TOLERATING WELL. NOTED RU PICC LINE RUNNING LAMONTE @0.9 AND PROPOFOL @30 MCG/KG/MIN. RF HD CATH HAS INTACT DRESSING . FC DRAINING TO THE GRAVITY CLOUDY YELLOW URINE. COVID (+), RESULTS FOR REPEATED TEST FOR COVID IS PENDING. ALL SAFETY MEASURES IMPLEMENTED, BED IN LOW LOCKED POSITION. SIDE RAILS UP X2. ENDORSED THE PATIENT TO AM RN FOR HAO,
[2019-11-26] MEDS: HYDROXYCHLOROQUINE 200 MG/8 ML SUSPENSION NG SCH ×2 (07:54→16:46)
[2019-11-26] MEDS: PROSOURCE / PROSTAT (PYXIS) 30 ML UDC GT SCH (07:55)
[2019-11-26] MEDS: POTASSIUM CHLORIDE 20 MEQ TAB.PRT.SR PO SCH ×2 (07:55→12:37)
[2019-11-26] MEDS: CLOPIDOGREL BISULFATE 75 MG TABLET PO SCH (07:55)
[2019-11-26] MEDS: PANTOPRAZOLE 40 MG/PACK PACK NG SCH (07:55)
--- NOTE | 2019-11-26 09:41 | NUR ---
WOUND CARE FOLLOW UP: REVIEWED NURSING DOCUMENTATION, CHART AND PHOTOS OF SACRAL DEEP TISSUE INJURY IN EVOLUTION. RECOMMENDATIONS MADE FOR CONTINUED WOUND CARE AND SKIN PROTECTION. DISCUSSED WITH NURSING STAFF. SURGEON CURRENTLY ON CASE. ALL SKIN PROTECTION MEASURES IN PLACE. MD IN AGREEMENT WITH PLAN OF CARE.
[2019-11-26] MEDS: NEPRO 1,000 ML BOTTLE GT PRN (12:37)
[2019-11-26] MEDS: ACETAMINOPHEN 650 MG/20.3 ML UDC NG PRN ×2 (12:39→18:58)
[2019-11-26] MEDS: ALBUMIN 25% 25 GM in PREMIX 1 EA IV SCH ×2 (15:40→21:03)
[2019-11-26] MEDS: TAMSULOSIN 0.4 MG CAP.SR.24H PO SCH (18:57)
[2019-11-26] MEDS: DAKINS QUARTER STRENGTH (0.125%) 480 ML BOTTLE TOP SCH (18:57)
--- NOTE | 2019-11-26 19:20 | NUR ---
LOTUS NOTES ADMINISTRATOR OPENING NOTE, RECEIVED PATIENT SEDATED ON VENTILATION, TOLERATING VENT SETTING WELL, NO SOB OR ACUTE DISTRESS NOTED AT THIS TIME. ST ON BEDSIDE MONITOR IN 98. PATIENT HAS CONTINUES NG TUBE FEEDING ON RIGHT NARE, NEPRO AT 40ML/HR. TOLERATING WELL. NOTED RU PICC LINE WITH PROPOFOL @30 MCG/KG/MIN INFUSING WELL. RF HD CATH HAS INTACT DRESSING . FC DRAINING TO THE GRAVITY CLOUDY YELLOW URINE. COVID (+), RESULTS FOR REPEATED TEST FOR COVID IS NEGATIVE MAINTAINING DROPLET ISOLATION UNTIL THE 2ND NEGATIVE RESULTS. ALL SAFETY MEASURES IMPLEMENTED, BED IN LOW LOCKED POSITION. SIDE RAILS UP X2. WILL CONTINUE TO MONITOR THE PATIENT.
--- NOTE | 2019-11-26 19:24 | NUR ---
OIL HEATER INSTALLER note Sedation vacation - patient doesn't track, follow command or make eye contact. Opens eyes and moves to pain. Obtunded. Off Fernie this shift. Sacral debridement consent placed in chart. CANDIDO triple lumen PICC intact, Diprovan@ 30mcg/kg/min, NS @TKO. Nor estraints - patient doesn't move extremeties. Thompson catheter + bag changed today. FiO2 55%, no distress noted, SPO2 >91%, tele monitor attached HR 115, temp 98.9 rectally, tylenol given
[2019-11-26] MEDS: ZINC SULFATE 220 MG CAPSULE PO SCH (20:02)
[2019-11-26] MEDS: AZITHROMYCIN 250 MG TABLET PO SCH (20:02)
--- NOTE | 2019-11-26 22:04 | NUR ---
RT NOTE PT RECEIVED INTUBATED ON 7.5 ET TUBE @ 27 CM ON MID LIP LINE. MOVED ET TUBE TO LEFT LIP LINE. CUFF CHECKED VIA CHEMICAL LAB TECHNICIAN. SX DONE, ET TUBE SECURED AND PATENT. PT RECEIVING ADEQUATE VOLUMES. ALARMS ON AND AUDIBLE. NO DISTRESS NOTED. WILL MONITOR T/O SHIFT. Addendum: 11/26/19 at 2205 by PRERNA CEBALLOS RT Amended: Links added.
--- NOTE | 2019-11-26 22:44 | NUR ---
RN NOTES NEOSYNEPHRINE 0.1MCG/KG/MIN STARTEDAS ORDERED D/T NEISHA 88/40
[2019-11-27] VITALS (74 sets, daily range): BP systolic 73–130; BP diastolic 35–68
[2019-11-27] MEDS: SEVELAMER CARBONATE 0.8 GM POWD.PACK GT SCH ×3 (03:09→16:40)
[2019-11-27] MEDS: IV NS 0.9% 250 ML IV PRN (03:33)
[2019-11-27] MEDS: PROPOFOL 100 ML IV PRN ×4 (04:01→21:16)
[2019-11-27] MEDS: ALBUMIN 25% 25 GM in PREMIX 1 EA IV SCH (05:02)
[2019-11-27 05:21] LABS: BASOPHILS % (AUTO) 0.1 % (0.0-2.0); EOSINOPHILS % (AUTO) 3.1 % (0.0-6.0); HEMATOCRIT 25 % (39-51); HEMOGLOBIN 8.1 g/dL (13.5-17.5); LYMPHOCYTES # (AUTO) 0.4 /CMM (0.8-4.8); LYMPHOCYTES % (AUTO) 2.4 % (20.0-44.0); MEAN CORPUSCULAR HGB CONC 33 g/dl (31.0-36.0); MEAN CORPUSCULAR VOLUME 91 fL (80-96); MONOCYTES # (AUTO) 0.6 /CMM (0.1-1.30); NEUTROPHILS # (AUTO) 13.9 /CMM (1.8-8.9); NEUTROPHILS % (AUTO) 90.4 % (43.0-81.0); PLATELET COUNT (AUTO) 101 /CMM (150-450); WHITE BLOOD COUNT (AUTO) 15.4 K/uL (4.3-11.0)
[2019-11-27 05:59] LABS: ALANINE AMINOTRANSFERASE 17 U/L (12-78); ALBUMIN 1.8 g/dL (3.4-5.0); ALKALINE PHOSPHATASE 109 U/L (46-116); ASPARTATE AMINOTRANSFERASE 30 U/L (15-37); BILIRUBIN,TOTAL 0.7 mg/dL (0.2-1.0); CALCIUM, SERUM 8.1 mg/dL (8.5-10.1); CARBON DIOXIDE 27 mmol/L (21-32); CHLORIDE 110 mmol/L (98-107); CREATININE 4.1 mg/dL (0.6-1.3); GLUCOSE 101 mg/dL (74-106); MAGNESIUM 2.5 mg/dL (1.8-2.4); PHOSPHORUS 6.1 mg/dL (2.5-4.9); POTASSIUM 4.4 mmol/L (3.5-5.1); SODIUM SERUM 146 mmol/L (136-145); TOTAL PROTEIN, SERUM 5.6 g/dL (6.4-8.2)
[2019-11-27 06:01] LABS: UREA NITROGEN, BLOOD 100 mg/dL (7-18)
[2019-11-27] MEDS: PHENYLEPHRINE 100 MG in IV NS 0.9% 240 ML IV PRN (06:32)
--- NOTE | 2019-11-27 06:52 | NUR ---
CAKE INSPECTOR CLOSING NOTES PT ASLEEP AND SEDATED WITH ONGOING DIPRIVAN 30MCG/KG/MIN AND NEOSYNEPHRINE 0.7MCG/KG/MIN NO SIGN AND SYMPTOMS OF RESPIRATORY DISTRESS ON ETT/VENT SETTING ORDERED MAINTAINING SPO2>92% ON TELE MONITOR READING SINUS TACHY WITH BUNDLE BRANCH BLOCK, WOUND TREATMENT DONE ORDERED DROPLET PRECAUTION MAINTAINED WAITING FOR 2ND COVID 19 NEGATIVE RESULT BEFORE LIFTING ISOLATION SAFETY MEASURE MAINTAINED ALL NEEDS ATTENDED CALL LIGHT WITHIN REACH WILL ENDORSE TO AM SHIFT NURSE
--- NOTE | 2019-11-27 07:30 | NUR ---
PRODUCTION DIRECTOR OPENING NOTE Received patient sedated in bed intubated on vent no signs of distress. Vent settings as follows AC 28 TV 500 FiO2 55% PEEP 8 tolerating well. Will plan on sedation vacation this morning. Patient is SR 90 bps. On NGT checked placement patent and flushed well running Nepro @ 40cc/hr R Nares. Patient has FC draining clear yellow urine. Patient has CANDIDO PICC line running Propofol @ 30mcg/kg/ml and Fernie 0.7 mcg/kg/ml. Patient has R Femoral HD. Will follow up with dialysis nurse today. Patient is awaiting Conv Plasma ordered on 11/23/19. Safety measures reinforced. Siderails up x2. Bed locked and on lowest position. Will cont to monitor.
[2019-11-27] MEDS: CLOPIDOGREL BISULFATE 75 MG TABLET PO SCH (08:35)
[2019-11-27] MEDS: PANTOPRAZOLE 40 MG/PACK PACK NG SCH (08:35)
[2019-11-27] MEDS: ZINC SULFATE 220 MG CAPSULE PO SCH (08:35)
[2019-11-27] MEDS: HYDROXYCHLOROQUINE 200 MG/8 ML SUSPENSION NG SCH ×2 (08:35→16:40)
[2019-11-27] MEDS: PROSOURCE / PROSTAT (PYXIS) 30 ML UDC GT SCH (08:37)
--- NOTE | 2019-11-27 09:00 | NUR ---
FIBREGLASS LAY UP WORKER NOTE Patient was placed on sedation vacation. Unable to wake up fully but placed back to 30mcg since patient's respiration is going up and HR is going up as well.
[2019-11-27 09:03] LABS: ABG OXYGEN SATURATION 93.3 % (92.0-98.5); ABG PH 7.354 (7.350-7.450); ABG PO2 73.1 mmHg (75.0-100.0); COHb 1.3 % (0.5-1.5); MetHb 0.3 % (0.0-1.5); O2Hb 91.8 % (94.0-97.0); PEEP,BG 8 cm H2O; SITE, ABG Right Radial; VT, ABG 500 mL
[2019-11-27] MEDS: TAMSULOSIN 0.4 MG CAP.SR.24H PO SCH (16:40)
[2019-11-27] MEDS: DAKINS QUARTER STRENGTH (0.125%) 480 ML BOTTLE TOP SCH (16:41)
--- NOTE | 2019-11-27 18:03 | NUR ---
PRESS BOX CUSTODIAN NOTE Swabbed patient on the nose and sent specimen to the labs.
[2019-11-27] MEDS: NEPRO 1,000 ML BOTTLE GT PRN (18:34)
--- NOTE | 2019-11-27 19:18 | NUR ---
DEVELOPER EVANGELIST CLOSING NOTE Patient sedated in bed intubated on vent no signs of distress. Vent settings as follows AC 28 TV 500 FiO2 55% PEEP 8 tolerating well. On NGT patent and running Nepro @ 40cc/hr R Nares. FC draining clear yellow urine. Patient has CANDIDO PICC line running Propofol @ 30mcg/kg/ml and Fernie 0.8 mcg/kg/ml. Patient has R Femoral HD. Dialysis done today cleaning only no output. Patient is awaiting Conv Plasma ordered on 11/23/19. All due meds given VS within normal limits. No signs of pain or discomfort. All anticipated needs met. Family aware of condition. Safety measures reinforced. Siderails up x2. Bed locked and on lowest position. Will endorse to machinist 2nd shift nurse for clementine..
[2019-11-27] MEDS: AZITHROMYCIN 250 MG TABLET PO SCH (20:58)
[2019-11-28] VITALS (89 sets, daily range): BP systolic 69–123; BP diastolic 35–71
[2019-11-28] MEDS: PROPOFOL 100 ML IV PRN ×2 (02:23→08:28)
[2019-11-28] MEDS: PHENYLEPHRINE 100 MG in IV NS 0.9% 240 ML IV PRN ×2 (02:36→18:08)
[2019-11-28] MEDS: SEVELAMER CARBONATE 0.8 GM POWD.PACK GT SCH ×3 (02:47→17:36)
[2019-11-28] MEDS: ZINC SULFATE 220 MG CAPSULE PO SCH (08:24)
[2019-11-28] MEDS: CLOPIDOGREL BISULFATE 75 MG TABLET PO SCH (08:24)
[2019-11-28] MEDS: HYDROXYCHLOROQUINE 200 MG/8 ML SUSPENSION NG SCH ×2 (08:24→17:36)
[2019-11-28] MEDS: PANTOPRAZOLE 40 MG/PACK PACK NG SCH (08:24)
[2019-11-28] MEDS: PROSOURCE / PROSTAT (PYXIS) 30 ML UDC GT SCH (08:24)
[2019-11-28] MEDS: HYDROCORTISONE SOD SUCCINATE 100 MG/2 ML VIAL IV SCH ×3 (08:26→17:36)
--- NOTE | 2019-11-28 09:10 | NUR ---
MORTGAGE LOAN PROCESSOR RECIVED PHONE CALL FROM RADIOLOGY REGARDING MULTIFOCAL PNA CRITICAL RESULTS, DR. SANDERSON WAS NOTIFIED MD ADVISED WILL LOOK AT THE CHEST XRAY, NO NEW ORDERS WILL CONTINUE TO MONITOR.
[2019-11-28 09:34] LABS: BASOPHILS % (AUTO) 0.2 % (0.0-2.0); EOSINOPHILS % (AUTO) 4.3 % (0.0-6.0); HEMATOCRIT 26 % (39-51); HEMOGLOBIN 8.3 g/dL (13.5-17.5); LYMPHOCYTES # (AUTO) 0.4 /CMM (0.8-4.8); LYMPHOCYTES % (AUTO) 2.7 % (20.0-44.0); MEAN CORPUSCULAR HGB CONC 32 g/dl (31.0-36.0); MEAN CORPUSCULAR VOLUME 92 fL (80-96); MONOCYTES % (AUTO) 6.5 % (2.0-12.0); NEUTROPHILS # (AUTO) 13.5 /CMM (1.8-8.9); NEUTROPHILS % (AUTO) 86.3 % (43.0-81.0); PLATELET COUNT (AUTO) 111 /CMM (150-450); RED BLOOD CELL COUNT(AUTO) 2.86 MIL/uL (4.5-6.0); WHITE BLOOD COUNT (AUTO) 15.6 K/uL (4.3-11.0)
[2019-11-28 09:48] LABS: CALCIUM, SERUM 7.7 mg/dL (8.5-10.1); CARBON DIOXIDE 27 mmol/L (21-32); CHLORIDE 105 mmol/L (98-107); CREATININE 3.4 mg/dL (0.6-1.3); GLUCOSE 125 mg/dL (74-106); POTASSIUM 4.1 mmol/L (3.5-5.1); SODIUM SERUM 142 mmol/L (136-145)
[2019-11-28 09:52] LABS: UREA NITROGEN, BLOOD 90 mg/dL (7-18)
[2019-11-28 09:55] LABS: ALANINE AMINOTRANSFERASE 22 U/L (12-78); ALBUMIN 1.8 g/dL (3.4-5.0); ALKALINE PHOSPHATASE 132 U/L (46-116); ASPARTATE AMINOTRANSFERASE 37 U/L (15-37); BILIRUBIN,TOTAL 0.6 mg/dL (0.2-1.0); MAGNESIUM 2.3 mg/dL (1.8-2.4); PHOSPHORUS 5.9 mg/dL (2.5-4.9); TOTAL PROTEIN, SERUM 5.7 g/dL (6.4-8.2)
[2019-11-28 13:07] LABS: EOSINOPHILS % (MANUAL) 2 % (0-4); LYMPHOCYTES % (MANUAL) 2 % (16-48); MONOCYTES % (MANUAL) 9 % (0-11.0); MYELOCYTES % 2 % (0-0); NEUTROPHILS % (MANUAL) 85 (42-76)
--- NOTE | 2019-11-28 16:40 | NUR ---
VENEER PATCHER RECEIVED PHONE CALL FROM EMILY STATED HE IS ION'S STEP SON, DID NOT FIND IN THE SYSTEM ANYTHING REGARDING DETAILED INFORMATION CAN BE GIVEN TO STEP SON HE IS NOT NEXT OF KIN FOR THIS PT, PERSON SPOKE W/ SEA EQUIPMENT SERVICE TECHNICIAN REGARDING PT INFORMATION.
--- NOTE | 2019-11-28 17:15 | NUR ---
TOMBSTONE ERECTOR HOLLY RT IN ROOM PERFORMING AGGRESSIVE SECTIONING, BED BATH GIVEN AT 1600 NO DISTRESS NOTED PT STILL ON PROPOFOL AND LOW DOSE OF LEVOPHED FOR SBP MAINTENANCE.
[2019-11-28] MEDS: DAKINS QUARTER STRENGTH (0.125%) 480 ML BOTTLE TOP SCH (17:36)
[2019-11-28] MEDS: TAMSULOSIN 0.4 MG CAP.SR.24H PO SCH (17:36)
--- NOTE | 2019-11-28 18:20 | NUR ---
PATIENT INTAKE REPRESENTATIVE PT IN BED NO NEW CHANGES IN PT CONDITION NO DISTRESS NOTED DURING SHIFT, BED BATH GIVEN SCARAL WOUND CARE PERFORMED ORDERED, SEDATION VACATION PROVIDED EARLIER IN SHIFT PT STARTED TO BREATH AGAINST VENT SAT DECREASED TO HIGH 80S RESUMED PROPOFOL ORDERED FOR PT COMFORT, VENT SETTINGS NOTED SAFETY MEASURES TAKEN WILL GIVE REPORT TO CONSTRUCTION ADMINISTRATIVE ASSISTANT FOR CONTINUITY OF CARE.
--- NOTE | 2019-11-28 19:48 | NUR ---
PT RECEIVED ORALLY INTUBATED WITH 7.5 ET TUBE SECURED @ 27 CM LIP LINE ON VENT WITH NOTED SETTINGS. CUFF CHECKED VIA STARCH FACTORY LABORER. AMBU BAG @ HOB. SX DONE, ET TUBE SECURED AND PATENT. ALARMS ON AND AUDIBLE. VENT PLUGGED TO RED OUTLET. NO RESPIRATORY DISTRESS NOTED AT THIS TIME. WILL CONTINUE TO MONITOR THE PT T/O SHIFT
[2019-11-28] MEDS: AZITHROMYCIN 250 MG TABLET PO SCH (20:36)
[2019-11-29] VITALS (55 sets, daily range): BP systolic 82–138; BP diastolic 46–79
[2019-11-29] MEDS: PROPOFOL 100 ML IV PRN ×3 (01:36→15:19)
[2019-11-29] MEDS: SEVELAMER CARBONATE 0.8 GM POWD.PACK GT SCH ×3 (02:44→18:12)
[2019-11-29 05:58] LABS: BASOPHILS % (AUTO) 0.2 % (0.0-2.0); EOSINOPHILS % (AUTO) 0.4 % (0.0-6.0); HEMATOCRIT 24 % (39-51); HEMOGLOBIN 7.9 g/dL (13.5-17.5); LYMPHOCYTES # (AUTO) 0.5 /CMM (0.8-4.8); LYMPHOCYTES % (AUTO) 4.6 % (20.0-44.0); MEAN CORPUSCULAR HGB CONC 33 g/dl (31.0-36.0); MEAN CORPUSCULAR VOLUME 92 fL (80-96); MONOCYTES # (AUTO) 0.6 /CMM (0.1-1.30); MONOCYTES % (AUTO) 5.7 % (2.0-12.0); NEUTROPHILS # (AUTO) 9.2 /CMM (1.8-8.9); NEUTROPHILS % (AUTO) 89.1 % (43.0-81.0); PLATELET COUNT (AUTO) 112 /CMM (150-450); RED BLOOD CELL COUNT(AUTO) 2.63 MIL/uL (4.5-6.0); WHITE BLOOD COUNT (AUTO) 10.3 K/uL (4.3-11.0)
[2019-11-29 06:35] LABS: ALANINE AMINOTRANSFERASE 23 U/L (12-78); ALBUMIN 1.7 g/dL (3.4-5.0); ALKALINE PHOSPHATASE 121 U/L (46-116); ASPARTATE AMINOTRANSFERASE 35 U/L (15-37); BILIRUBIN,TOTAL 0.5 mg/dL (0.2-1.0); CARBON DIOXIDE 25 mmol/L (21-32); CHLORIDE 105 mmol/L (98-107); CREATININE 3.7 mg/dL (0.6-1.3); GLUCOSE 125 mg/dL (74-106); MAGNESIUM 2.6 mg/dL (1.8-2.4); PHOSPHORUS 6.8 mg/dL (2.5-4.9); POTASSIUM 4.3 mmol/L (3.5-5.1); SODIUM SERUM 142 mmol/L (136-145); TOTAL PROTEIN, SERUM 5.7 g/dL (6.4-8.2)
[2019-11-29 06:38] LABS: UREA NITROGEN, BLOOD 102 mg/dL (7-18)
--- NOTE | 2019-11-29 07:52 | NUR ---
VALUE STREAM COACH PATIENT SEDATED , [facility] PULMO ORDERS . PATIENT ON EXTERNAL MONITOR ST 100'S , NG TUBE PLACEMENT MINIMAL RESIDUAL, NEPHRO RUNING @ 40 ML/HR. BATISTA INTACT AND PATENT CLEAR YELLOW DRAINAGE. CANDIDO PICC DIPRIVAN @ 20 MCG/KG/MIN RF HD, BED LOCKED LOWEST POSITION CALL LIGHT WITH IN REACH ALL SAFETY MEAURE IMPLEMENTED PER HOSPITAL POLICY
[2019-11-29] MEDS: PROSOURCE / PROSTAT (PYXIS) 30 ML UDC GT SCH (10:11)
[2019-11-29] MEDS: HYDROXYCHLOROQUINE 200 MG/8 ML SUSPENSION NG SCH ×2 (10:12→18:11)
[2019-11-29] MEDS: ZINC SULFATE 220 MG CAPSULE PO SCH (10:12)
[2019-11-29] MEDS: HYDROCORTISONE SOD SUCCINATE 100 MG/2 ML VIAL IV SCH ×3 (10:12→18:11)
[2019-11-29] MEDS: PANTOPRAZOLE 40 MG/PACK PACK NG SCH (10:12)
[2019-11-29] MEDS: CLOPIDOGREL BISULFATE 75 MG TABLET PO SCH (10:12)
[2019-11-29] MEDS: TAMSULOSIN 0.4 MG CAP.SR.24H PO SCH (18:12)
[2019-11-29] MEDS: DAKINS QUARTER STRENGTH (0.125%) 480 ML BOTTLE TOP SCH (18:12)
[2019-11-29] MEDS: AZITHROMYCIN 250 MG TABLET PO SCH (21:09)
[2019-11-30] VITALS (89 sets, daily range): BP systolic 88–138; BP diastolic 53–82
[2019-11-30] MEDS: PROPOFOL 100 ML IV PRN ×3 (01:19→16:05)
[2019-11-30] MEDS: SEVELAMER CARBONATE 0.8 GM POWD.PACK GT SCH ×3 (03:04→18:18)
[2019-11-30 05:07] LABS: BASOPHILS # (AUTO) 0.1 /CMM (0.0-0.2); BASOPHILS % (AUTO) 0.4 % (0.0-2.0); EOSINOPHILS % (AUTO) 0.2 % (0.0-6.0); HEMATOCRIT 25 % (39-51); LYMPHOCYTES # (AUTO) 0.6 /CMM (0.8-4.8); LYMPHOCYTES % (AUTO) 4.5 % (20.0-44.0); MEAN CORPUSCULAR HGB CONC 33 g/dl (31.0-36.0); MEAN CORPUSCULAR VOLUME 92 fL (80-96); MONOCYTES # (AUTO) 0.7 /CMM (0.1-1.30); MONOCYTES % (AUTO) 5.2 % (2.0-12.0); NEUTROPHILS % (AUTO) 89.7 % (43.0-81.0); PLATELET COUNT (AUTO) 142 /CMM (150-450); RED BLOOD CELL COUNT(AUTO) 2.66 MIL/uL (4.5-6.0); WHITE BLOOD COUNT (AUTO) 13.3 K/uL (4.3-11.0)
[2019-11-30 05:43] LABS: ALANINE AMINOTRANSFERASE 30 U/L (12-78); ALBUMIN 1.7 g/dL (3.4-5.0); ALKALINE PHOSPHATASE 133 U/L (46-116); ASPARTATE AMINOTRANSFERASE 49 U/L (15-37); BILIRUBIN,TOTAL 0.5 mg/dL (0.2-1.0); CALCIUM, SERUM 7.8 mg/dL (8.5-10.1); CARBON DIOXIDE 26 mmol/L (21-32); CHLORIDE 104 mmol/L (98-107); CREATININE 3.2 mg/dL (0.6-1.3); GLUCOSE 131 mg/dL (74-106); MAGNESIUM 2.5 mg/dL (1.8-2.4); PHOSPHORUS 6.3 mg/dL (2.5-4.9); POTASSIUM 4.1 mmol/L (3.5-5.1); SODIUM SERUM 141 mmol/L (136-145); TOTAL PROTEIN, SERUM 5.9 g/dL (6.4-8.2)
[2019-11-30 05:53] LABS: UREA NITROGEN, BLOOD 92 mg/dL (7-18)
--- NOTE | 2019-11-30 07:28 | NUR ---
RN NOTES IN BED, RESTING COMFORTABLY. SEDATED. BREATHING EVEN AND UNLABORED. VENT SETTING TOLERATED WELL. ON NGT FEEDING TOLERATING WELL. ON DIPRIVAN DRIP STARTED AT 20MCG, UNABLE TO WEAN. STARTED LAMONTE AT 0.5 TRIED TO WEAN OFF BUT BP STILL DROPPED. NO SIGNIFICANT CHANGE OF CONDITION. ON LEVO DRIP AT 0.5MCG, BP STABLE. NO PHYSICAL MANIFESTATION OF PAIN OR DISCOMFORT. KEPT CLEAN AND DRY. ENDORSED TO NEXT SHIFT FOR CONTINUITY OF CARE
--- NOTE | 2019-11-30 07:50 | NUR ---
RT PATIENT REC'D ORALLY INTUBATED ON [facility] VENT WITH ORFERED SETTINGS. VENT ALARMS CHECKED + AUDIBLE. CUFF PRESSURE CHECKED MASTER ELECTRICIAN. ETT SECURE AND IN PROPER POSITION. AMBU BAG AT HOB. Addendum: 11/30/19 at 1548 by RAIMUNDO ALCANTAR RT Amended: Links added.
[2019-11-30] MEDS: ZINC SULFATE 220 MG CAPSULE PO SCH (08:33)
[2019-11-30] MEDS: PANTOPRAZOLE 40 MG/PACK PACK NG SCH (08:33)
[2019-11-30] MEDS: HYDROCORTISONE SOD SUCCINATE 100 MG/2 ML VIAL IV SCH ×3 (08:39→18:18)
[2019-11-30] MEDS: CLOPIDOGREL BISULFATE 75 MG TABLET PO SCH (08:39)
[2019-11-30] MEDS: HYDROXYCHLOROQUINE 200 MG/8 ML SUSPENSION NG SCH (08:46)
[2019-11-30] MEDS: PROSOURCE / PROSTAT (PYXIS) 30 ML UDC GT SCH (08:46)
--- NOTE | 2019-11-30 09:00 | NUR ---
Sedation Vacation Notes Patient doesn't track, make eye contact, or follow command
[2019-11-30] MEDS: DAKINS QUARTER STRENGTH (0.125%) 480 ML BOTTLE TOP SCH (18:18)
[2019-11-30] MEDS: TAMSULOSIN 0.4 MG CAP.SR.24H PO SCH (18:18)
[2019-11-30] MEDS: AZITHROMYCIN 250 MG TABLET PO SCH (19:50)
[2019-12-01] VITALS (45 sets, daily range): BP systolic 97–140; BP diastolic 55–91
[2019-12-01] MEDS: PROPOFOL 100 ML IV PRN ×3 (00:55→15:43)
[2019-12-01] MEDS: SEVELAMER CARBONATE 0.8 GM POWD.PACK GT SCH ×3 (01:25→17:05)
[2019-12-01 04:52] LABS: BASOPHILS # (AUTO) 0.1 /CMM (0.0-0.2); BASOPHILS % (AUTO) 0.7 % (0.0-2.0); EOSINOPHILS % (AUTO) 0.1 % (0.0-6.0); HEMATOCRIT 23 % (39-51); HEMOGLOBIN 7.5 g/dL (13.5-17.5); LYMPHOCYTES # (AUTO) 0.8 /CMM (0.8-4.8); LYMPHOCYTES % (AUTO) 6.3 % (20.0-44.0); MEAN CORPUSCULAR HGB CONC 33 g/dl (31.0-36.0); MEAN CORPUSCULAR VOLUME 92 fL (80-96); MONOCYTES # (AUTO) 0.8 /CMM (0.1-1.30); MONOCYTES % (AUTO) 6.6 % (2.0-12.0); NEUTROPHILS # (AUTO) 10.3 /CMM (1.8-8.9); NEUTROPHILS % (AUTO) 86.3 % (43.0-81.0); PLATELET COUNT (AUTO) 147 /CMM (150-450); RED BLOOD CELL COUNT(AUTO) 2.48 MIL/uL (4.5-6.0)
[2019-12-01 05:05] LABS: CALCIUM, SERUM 8.1 mg/dL (8.5-10.1); CARBON DIOXIDE 25 mmol/L (21-32); CHLORIDE 105 mmol/L (98-107); CREATININE 3.4 mg/dL (0.6-1.3); GLUCOSE 114 mg/dL (74-106); MAGNESIUM 2.6 mg/dL (1.8-2.4); PHOSPHORUS 6.4 mg/dL (2.5-4.9); POTASSIUM 3.7 mmol/L (3.5-5.1); SODIUM SERUM 143 mmol/L (136-145)
[2019-12-01 05:06] LABS: UREA NITROGEN, BLOOD 103 mg/dL (7-18)
--- NOTE | 2019-12-01 06:01 | NUR ---
MARINE SERVICE OPERATOR Note Patient remains sedated, attached to [facility] vent, tolerating current settings. Large amount of thick oral secretions. Tele monitor SR/ST HR 90s - 110. NGT in place, flushed PRN, nepro @40mL/hr, placement verified via auscultation and aspiration, no residual noted. Thompson draining to gravity. Bowel movement x2. Wound care and pictures completed. CANDIDO PICC C/D/I infusing Propofol@25mcg/kg/min. Fernie off since 11/29 @1200. R Fem HD cath intact. No restraints. Per [facility] blood bank, [facility] has not sent plasma. Step son Cristóbal Guerra requesting to speak to Dr. Gayle.
[2019-12-01] MEDS: PANTOPRAZOLE 40 MG/PACK PACK NG SCH (09:27)
[2019-12-01] MEDS: PROSOURCE / PROSTAT (PYXIS) 30 ML UDC GT SCH (09:27)
[2019-12-01] MEDS: HYDROCORTISONE SOD SUCCINATE 100 MG/2 ML VIAL IV SCH ×3 (09:27→17:02)
[2019-12-01] MEDS: CLOPIDOGREL BISULFATE 75 MG TABLET PO SCH (09:29)
[2019-12-01] MEDS: ZINC SULFATE 220 MG CAPSULE PO SCH (09:30)
--- NOTE | 2019-12-01 10:20 | NUR ---
DISPATCHER CHIEF OIL NOTES RECEIVED A CALL FROM BLOOD BANK, BLOOD IS READY.
--- NOTE | 2019-12-01 10:31 | NUR ---
SR. PRICING ANALYST NOTES PATIENT HAS A BLOOD TRANSFUSION ORDER , HIS HGB IS 7.[address] WRIGHT IF THERE IS SPECIFIC REASON FOR BLOOD TRANSFUSION. PT WILL RECEIVE BLOOD TRANSFUSION DUE TO AGE , MN AND HGB<8.
--- NOTE | 2019-12-01 14:14 | NUR ---
CLINICAL IMPLEMENTATION SPECIALIST NOTES DIALYSIS NURSE AT BED SIDE, 1 UNIT BLOOD IS BEING TRANSFUSED BY DIALYSIS NURSE.
--- NOTE | 2019-12-01 14:47 | NUR ---
CUFF SETTER OVERLOCK NOTES BLOOD TRANSFUSED BY DIALYSIS NURSE.
[2019-12-01] MEDS: TAMSULOSIN 0.4 MG CAP.SR.24H PO SCH (17:05)
[2019-12-01] MEDS: DAKINS QUARTER STRENGTH (0.125%) 480 ML BOTTLE TOP SCH (17:06)
--- NOTE | 2019-12-01 19:45 | NUR ---
OIL SPREADER OPERATOR NOTES PATIENT IN BED SEDATED. ALL NEEDS ATTENDED. NO DISCOMFORT OR DISTRESS NOTED. REPORT GIVEN TO ENGINEERING OPERATIONS LEADER NURSE.
[2019-12-01] MEDS: AZITHROMYCIN 250 MG TABLET PO SCH (20:59)
[2019-12-02] VITALS (24 sets, daily range): BP systolic 102–157; BP diastolic 51–89
[2019-12-02] MEDS: PROPOFOL 100 ML IV PRN ×4 (02:17→22:08)
[2019-12-02] MEDS: SEVELAMER CARBONATE 0.8 GM POWD.PACK GT SCH ×3 (02:25→17:05)
[2019-12-02 05:04] LABS: BASOPHILS % (AUTO) 0.3 % (0.0-2.0); EOSINOPHILS % (AUTO) 0.2 % (0.0-6.0); HEMATOCRIT 30 % (39-51); HEMOGLOBIN 9.6 g/dL (13.5-17.5); LYMPHOCYTES # (AUTO) 0.8 /CMM (0.8-4.8); LYMPHOCYTES % (AUTO) 6.2 % (20.0-44.0); MEAN CORPUSCULAR HGB CONC 32 g/dl (31.0-36.0); MEAN CORPUSCULAR VOLUME 92 fL (80-96); MONOCYTES # (AUTO) 0.8 /CMM (0.1-1.30); NEUTROPHILS # (AUTO) 11.5 /CMM (1.8-8.9); NEUTROPHILS % (AUTO) 87.3 % (43.0-81.0); PLATELET COUNT (AUTO) 169 /CMM (150-450); RED BLOOD CELL COUNT(AUTO) 3.22 MIL/uL (4.5-6.0); WHITE BLOOD COUNT (AUTO) 13.2 K/uL (4.3-11.0)
[2019-12-02] MEDS: NEPRO 1,000 ML BOTTLE GT PRN (05:06)
[2019-12-02 05:44] LABS: CALCIUM, SERUM 7.8 mg/dL (8.5-10.1); CARBON DIOXIDE 28 mmol/L (21-32); CHLORIDE 104 mmol/L (98-107); CREATININE 2.8 mg/dL (0.6-1.3); GLUCOSE 87 mg/dL (74-106); MAGNESIUM 2.5 mg/dL (1.8-2.4); PHOSPHORUS 5.6 mg/dL (2.5-4.9); POTASSIUM 3.8 mmol/L (3.5-5.1); SODIUM SERUM 142 mmol/L (136-145); UREA NITROGEN, BLOOD 83 mg/dL (7-18)
--- NOTE | 2019-12-02 06:30 | NUR ---
AUTO WASHER: NO SIGNIFICANT HAO DURING THE SHIFT. REMAINED SEDATED ON DIPRIVAN AT 20MCG/KG/MIN. OPENS EYES, WITHDRAWS TO PAIN STIMULI. SR ON FREIGHT SALES BROKER. AFEBRILE. STILL OFF VASOPRESSORS. NEEDED FREQUENT SUCTIONING VIA ORAL AND ETT WT JUDD THICK SECRETIONS. TOLERATING NGT FEEDING WT NO RESIDUAL. CANDIDO PICC LINE WT NO S/S OF COMPLICATIONS. F/C PATENT AND INTACT WT LARGE AMT. OF YELLOW URINE TO GRAVITY. BED BATH GIVEN AND TOLERATED FAIRLY. FI02 INCREASED TO 60% AT 0600 FOR 02 SAT IN LOW 90s. SAFETY PRECAUTION NOTED AT ALL TIMES.
--- NOTE | 2019-12-02 07:36 | NUR ---
FARMWORKER CH[employer]EN [employer]ARM RECEIVED PATIENT IN BED SEDATED ON PROPOFOL 20 MCG. NO DISCOMFORT NOTED AT THIS TIME. WILL FOLLOW UP WITH PATIENT S CONDITION.
--- NOTE | 2019-12-02 08:00 | NUR ---
EMBROIDERY ASSISTANT NOTES NO RESIDUAL NOTED FROM NG TUBE SIZE , AUSCULTATED AND PATENT. RIGHT UPPER ARM PICC LINE 2 LUMEN OUT OF 3 WORKING AND PATENT.
[2019-12-02 08:28] LABS: ABG BASE EXCESS 0.5 mmol/L; ABG OXYGEN SATURATION 94.9 % (92.0-98.5); ABG PCO2 41.2 mmHg (35.0-45.0); ABG PH 7.405 (7.350-7.450); ABG PO2 77.2 mmHg (75.0-100.0); AaDO2 305.3 mmHg; COHb 0.5 % (0.5-1.5); MetHb 0.3 % (0.0-1.5); O2Hb 94.1 % (94.0-97.0); SITE, ABG Left Radial
[2019-12-02] MEDS: PROSOURCE / PROSTAT (PYXIS) 30 ML UDC GT SCH (08:34)
[2019-12-02] MEDS: PANTOPRAZOLE 40 MG/PACK PACK NG SCH (08:35)
[2019-12-02] MEDS: ZINC SULFATE 220 MG CAPSULE PO SCH (08:35)
[2019-12-02] MEDS: HYDROCORTISONE SOD SUCCINATE 100 MG/2 ML VIAL IV SCH ×3 (08:35→17:05)
[2019-12-02] MEDS: CLOPIDOGREL BISULFATE 75 MG TABLET PO SCH (08:35)
--- NOTE | 2019-12-02 12:31 | NUR ---
CHILD SUPPORT AGENT NOTES SEDATION VACATION SEDATION VACATION PERFORMED. PATIENT GAS GAG REFLEX , DOES NOT FOLLOW COMMANDS, EYES EQUAL AND REACTIVE TO LIGHT.
--- NOTE | 2019-12-02 12:48 | NUR ---
FLIGHT ENGINEER INSPECTOR NOTES INFORMED DR FINE ABOUT THE WOUND CONDITION. DR BRAN.
[2019-12-02] MEDS: DAKINS QUARTER STRENGTH (0.125%) 480 ML BOTTLE TOP SCH (17:05)
[2019-12-02] MEDS: TAMSULOSIN 0.4 MG CAP.SR.24H PO SCH (17:05)
--- NOTE | 2019-12-02 18:35 | NUR ---
DUCT LAYER HELPER NOTES NG TUBE IS NOT WORKING STOPPED FEEDING, REINSERTED THE TUBE ON THE OTHER NARE AND IT WAS NOT SUCCESSFUL . INSERTED OG TUBE FEEDING PATENT AUSCULTATED AND XRAY ORDERED. DR QUIÑONEZ NOTIFIED.AND AWARE.
--- NOTE | 2019-12-02 19:30 | NUR ---
PERSONAL HEALTH COACH NOTES RECEIVED PATIENT IN BED CONT ON PROPOFOL DRIP FOR SEDATION TOLERATING WELL. NO S/S OF ACUTE DISTRESS NOTED. ON VENT SETTING TOLERATING WELL ORDERED. IV SITES INTACT PATENT FLUSHING WELL. F/C INTACT DARNING YELLOW URINE WITH GRAVITY. SAFETY MEASURES IN PLACE, BED IN LOW AND LOCKED POSITION. CALL LIGHT WITHIN REACH. WILL CONT TO MONITOR.
--- NOTE | 2019-12-02 19:35 | NUR ---
WIND ENERGY SYSTEMS INSTALLER NOTES PATIENT SEDATED IN BED NO SOB OR DISCOMFORT NOTED. REPORT GIVEN TO STUDENT OUTREACH COORDINATOR NURSE.
[2019-12-02] MEDS: AZITHROMYCIN 250 MG TABLET PO SCH (20:13)
[2019-12-02] MEDS: IV NS 0.9% 250 ML IV PRN (22:05)
[2019-12-03] VITALS (60 sets, daily range): BP systolic 109–165; BP diastolic 60–115
[2019-12-03] MEDS: SEVELAMER CARBONATE 0.8 GM POWD.PACK GT SCH ×3 (03:33→17:49)
--- NOTE | 2019-12-03 04:00 | NUR ---
BED BATH GIVEN PATIENT TOLERATED WELL.
--- NOTE | 2019-12-03 06:37 | NUR ---
TOUR DRIVER NOTE PATIENT RESTED WELL DURING SHIFT. CONT. ON DIPRIVAN DRIP TOLERATING WELL. VENT SETTING TOLERATING WELL ORDERED. IV'S INTACT PATENT FLUSHED WELL. NO DISTRESS NOTED DURING SHIFT. ALL ROUTINE MEDICATIONS WERE GIVEN ORDERED, PATIENT TOLERATED WELL. ALL SAFETY MEASURES IN PLACE, BED IN LOW AND LOCKED POSITION. CALL LIGHT WITHIN REACH. WILL ENDORSE TO AM NURSE FOR HAO.
--- NOTE | 2019-12-03 07:58 | NUR ---
ICU/RN: INITIAL NOTES, AM RECEIVED REPORT FROM NIGHT NURSE. PT INTUBATED ETT 7.5 AND 27CM AT THE LIP. PT ON VENT SETTINGS ORDERED NO ACUTE DISTRESS NOTED. PT SEDATED ON DIPRIVAN. NORMAL SINUS ON TELE. OGT IN PLACE, PLACEMENT VERIFIED, TUBE FEEDING INFUSING ORDERED, TOLERATING WELL. PT TURNED AND REPOSITIONED, ALL NEEDS ATTENDED TO, SAFETY MEASURES TAKEN, BED IN LOW POSITION, SIDE RAILS UP, CALL LIGHT WITHIN REACH. WILL CONTINUE CARE. AT BEDSIDE FOR TRACH PLACEMENT, NO ORDERS SEEN, PT NOT NPO, NO CONSENT IN CHART WILL RESCHEDULE TRACH AND PERMA CATH PLACEMENT
[2019-12-03] MEDS: PROSOURCE / PROSTAT (PYXIS) 30 ML UDC GT SCH (08:50)
[2019-12-03] MEDS: PANTOPRAZOLE 40 MG/PACK PACK NG SCH (08:50)
[2019-12-03] MEDS: CLOPIDOGREL BISULFATE 75 MG TABLET PO SCH (08:51)
[2019-12-03] MEDS: ZINC SULFATE 220 MG CAPSULE PO SCH (08:51)
[2019-12-03] MEDS: HYDROCORTISONE SOD SUCCINATE 100 MG/2 ML VIAL IV SCH ×3 (08:51→17:49)
--- NOTE | 2019-12-03 09:20 | NUR ---
ICU/RN: SEDATION VACATION PT OFF SEDATION. OPENS EYES, DOES NOT FOLLOW COMMANDS. WILL CONTINUE TO MONITOR
--- NOTE | 2019-12-03 10:45 | NUR ---
ICU/RN: HEMODIALYSIS STARTED. VSS. WILL CONTINUE TO MONITOR
--- NOTE | 2019-12-03 13:06 | NUR ---
ICU/RN: END OF HD, 2LITERS OUT. VSS. WILL CONTINUE TO MONITOR
[2019-12-03] MEDS: TAMSULOSIN 0.4 MG CAP.SR.24H PO SCH (17:49)
[2019-12-03] MEDS: DAKINS QUARTER STRENGTH (0.125%) 480 ML BOTTLE TOP SCH (17:50)
[2019-12-03] MEDS: NEPRO 1,000 ML BOTTLE GT PRN (18:41)
--- NOTE | 2019-12-03 19:28 | NUR ---
ICU/RN ENDING NOTES,AM REPORT ENDORSED TO NIGHT NURSE. PT OPENS EYES DOES NOT FOLLOW COMMANDS. OFF SEDATION. INTUBATED ON VENT SETTINGS ORDERED. NO ACUTE DISTRESS NOTED. SINUS ON TELE. ALL NEEDS ATTENDED TO, SAFETY MEASURES TAKEN, BED IN LOW POSITION, SIDE RAILS UP, CALL LIGHT WITHIN REACH. CONSENT FOR TRACH AND PERMACATH IN CHART. HD DONE TODAY, 2LITERS OUT
--- NOTE | 2019-12-03 19:30 | NUR ---
FINANCIAL ENGINEER NOTES RECEIVED REPORT FROM NIGHT NURSE. PATIENT OFF SEDATION. INTUBATED CONTINUES ON VENT SETTING TOLERATING WELL ORDERED. NO S/S OF DISTRESS NOTED. SINUS RHYTHM ON TELE MONITOR. F/C INTACT DARNING WELL WITH GRAVITY. IV SITES INTACT PATENT FLUSHING WELL. ABD SOFT AND NON DISTENDED. SKIN WARM AND DRY TO TOUCH. SAFETY MEASURES IN PLACE, BED IN LOW AND LOCKED POSITION. CALL LIGHT WITHIN REACH. WILL CONT TO MONITOR.
[2019-12-04] VITALS (50 sets, daily range): BP systolic 80–167; BP diastolic 44–100
[2019-12-04] MEDS: SEVELAMER CARBONATE 0.8 GM POWD.PACK GT SCH ×3 (02:23→17:29)
--- NOTE | 2019-12-04 04:00 | NUR ---
BED BATH GIVEN PATIENT TOLERATED WELL.
[2019-12-04 04:27] LABS: BASOPHILS % (AUTO) 0.3 % (0.0-2.0); EOSINOPHILS % (AUTO) 0.5 % (0.0-6.0); HEMATOCRIT 30 % (39-51); HEMOGLOBIN 9.6 g/dL (13.5-17.5); LYMPHOCYTES # (AUTO) 0.9 /CMM (0.8-4.8); LYMPHOCYTES % (AUTO) 6.1 % (20.0-44.0); MEAN CORPUSCULAR HGB CONC 32 g/dl (31.0-36.0); MEAN CORPUSCULAR VOLUME 92 fL (80-96); MONOCYTES # (AUTO) 0.9 /CMM (0.1-1.30); MONOCYTES % (AUTO) 6.7 % (2.0-12.0); NEUTROPHILS # (AUTO) 12.2 /CMM (1.8-8.9); NEUTROPHILS % (AUTO) 86.4 % (43.0-81.0); PLATELET COUNT (AUTO) 200 /CMM (150-450); RED BLOOD CELL COUNT(AUTO) 3.25 MIL/uL (4.5-6.0); WHITE BLOOD COUNT (AUTO) 14.1 K/uL (4.3-11.0)
[2019-12-04 04:42] LABS: CALCIUM, SERUM 8.2 mg/dL (8.5-10.1); CARBON DIOXIDE 28 mmol/L (21-32); CHLORIDE 106 mmol/L (98-107); CREATININE 2.3 mg/dL (0.6-1.3); GLUCOSE 107 mg/dL (74-106); POTASSIUM 3.3 mmol/L (3.5-5.1); SODIUM SERUM 144 mmol/L (136-145); UREA NITROGEN, BLOOD 66 mg/dL (7-18)
[2019-12-04 04:45] LABS: TRIGLYCERIDES 148 mg/dL (30-150)
--- NOTE | 2019-12-04 06:51 | NUR ---
CRANBERRY FARM SUPERVISOR NOTES NO CHANGES NOTED DURING SHIFT. PATIENT REMAINED INTUBATED. NO S/S OF RESPIRATORY DISTRESS NOTED. NO S/S OF PAIN NOTED. OGT IN PLACE FEEDING TOLERATING WELL. FC IN PLACE. CANDIDO MID LINE INTACT FLUSHING WELL. NO S/S OF INFILTRATION NOTED. SAFETY MEASURES IN PLACE, BED IN LOW AND LOCKED POSITION. CALL LIGHT WITHIN REACH. WILL ENDORSE TO AM NURSE FOR HAO.
--- NOTE | 2019-12-04 07:45 | NUR ---
ICU/RN: INITIAL NOTES, AM RECEIVED REPORT FROM NIGHT NURSE. PT INTUBATED ETT 7.5 AND 27CM AT THE LIP. PT ON VENT SETTINGS ORDERED NO ACUTE DISTRESS NOTED. PT OPENS EYES, SOME TRACKING NOTED. SINUS TACH ON TELE. OGT IN PLACE, PLACEMENT VERIFIED, TUBE FEEDING INFUSING ORDERED, TOLERATING WELL. PT TURNED AND REPOSITIONED, ALL NEEDS ATTENDED TO, SAFETY MEASURES TAKEN, BED IN LOW POSITION, SIDE RAILS UP, CALL LIGHT WITHIN REACH. WILL CONTINUE CARE.
[2019-12-04] MEDS: PROSOURCE / PROSTAT (PYXIS) 30 ML UDC GT SCH (08:17)
[2019-12-04] MEDS: PANTOPRAZOLE 40 MG/PACK PACK NG SCH (08:17)
[2019-12-04] MEDS: ZINC SULFATE 220 MG CAPSULE PO SCH (08:17)
[2019-12-04] MEDS: CLOPIDOGREL BISULFATE 75 MG TABLET PO SCH (08:20)
[2019-12-04] MEDS: HYDROCORTISONE SOD SUCCINATE 100 MG/2 ML VIAL IV SCH ×2 (08:22→17:30)
[2019-12-04] MEDS ORDERED: SILVER NITRATE APPLICATOR 1 EA BOX TP STA (11:36)
[2019-12-04] MEDS ORDERED: SILVER NITRATE APPLICATOR 1 EA BOX TP ONE (12:00)
--- NOTE | 2019-12-04 13:04 | NUR ---
ICU/RN: SACRAL WOUND DEBRIDEMENT DONE. DRESSING APPLIED. BLEEDING NOTED. WILL CONTINUE TO MONITOR.
--- NOTE | 2019-12-04 13:25 | NUR ---
ICU/RN: PT CONVERTED TO A.FIB, UNCONTROLLED HR 150S. 12 LEAD DONE, NOTIFIED. KNOW NEW ORDERS, WILL CONTINUE TO MONITOR
--- NOTE | 2019-12-04 13:35 | NUR ---
RT NOTE: LATE ENTRY- EKG REPORTED TO NURSE(ANABEL). SYSTEM WAS NOT ABLE TO TRANSMIT TO CARDIOSERVER. A COPY WAS PLACED IN THE CHART.
[2019-12-04] MEDS: LORAZEPAM INJ 2 MG/ML VIAL IV PRN (14:54)
--- NOTE | 2019-12-04 15:47 | NUR ---
RT NOTE: PATIENT RECEIVED ORALLY INTUBATED WITH 7.5 ETT SECURED AT 27 CM MID LIP LINE ON MECHANICAL VENT. VENT ALARMS VERIFIED AND AUDIBLE. VENT PLUGGED INTO RED OUTLET. AMBU BAG AT [facility].
[2019-12-04] MEDS: TAMSULOSIN 0.4 MG CAP.SR.24H PO SCH (17:29)
[2019-12-04] MEDS: DAKINS QUARTER STRENGTH (0.125%) 480 ML BOTTLE TOP SCH (17:30)
[2019-12-04] MEDS: NEPRO 1,000 ML BOTTLE GT PRN (17:34)
--- NOTE | 2019-12-04 18:54 | NUR ---
ICU/RN ENDING NOTES,AM REPORT ENDORSED TO NIGHT NURSE. PT OPENS EYES DOES NOT FOLLOW COMMANDS. OFF SEDATION. INTUBATED ON VENT SETTINGS ORDERED. NO ACUTE DISTRESS NOTED. A.FIB ON TELE ALL NEEDS ATTENDED TO, SAFETY MEASURES TAKEN, BED IN LOW POSITION, SIDE RAILS UP, CALL LIGHT WITHIN REACH.
--- NOTE | 2019-12-04 19:30 | NUR ---
POLLUTION CONTROL CHEMIST NOTES RECEIVED REPORT FROM NIGHT NURSE. PATIENT OFF SEDATION. INTUBATED CONTINUES ON VENT SETTING TOLERATING WELL ORDERED. TELE MONITOR READING A-FIB. NO S/S OF DISTRESS NOTED. NO S/S OF PAIN OR DISCOMFORT NOTED. OGT IN PLACE FEEDING TOLERATING WELL. F/C INTACT DARNING WELL WITH GRAVITY. CANDIDO MIDLINE INTACT PATENT FLUSHING WELL. SKIN WARM AND DRY TO TOUCH. SAFETY MEASURES IN PLACE, BED IN LOW AND LOCKED POSITION. CALL LIGHT WITHIN REACH. WILL CONT TO MONITOR.
--- NOTE | 2019-12-04 21:12 | NUR ---
RT NOTE PATIENT RECEIVED ON MECHANICAL VENT WITH ETT 7.5 27CM AT THE LIP. NO SIGNS OF RESPIRATORY DISTRESS NOTED. ETT IS SECURE. ALARMS ARE SET AND AUDIBLE. MECHANICAL VENT IS PLUGGED INTO RED OUTLET. WILL CONTINUE TO MONITOR PATIENT. Addendum: 12/05/19 at 0557 by ALETA CAMPUZANO RT Amended: Links added.
[2019-12-05] VITALS (52 sets, daily range): BP systolic 87–170; BP diastolic 46–100
[2019-12-05] MEDS: LORAZEPAM INJ 2 MG/ML VIAL IV PRN ×3 (03:41→19:30)
[2019-12-05] MEDS: SEVELAMER CARBONATE 0.8 GM POWD.PACK GT SCH ×3 (04:14→17:18)
--- NOTE | 2019-12-05 06:58 | NUR ---
SOCIAL WELFARE ADMINISTRATOR NOTES PATIENT ENDORSED TO AM NURSE,PATIENT OFF SEDATION, ON VENT SETTING TOLERATING WELL ORDERED. NO S/S OF PAIN OR DISCOMFORT NOTED. NO S/S OF ACUTE DISTRESS NOTED. TELE MONITOR READING A-FIB. FEEDING TOLERATING WELL. F/C DARNING WELL. KEPT CLEAN DRY AND COMFORTABLE. ALL NEEDS ATTENDED. SAFETY MEASURES IN PLACE. CALL LIGHT WITHIN REACH.
--- NOTE | 2019-12-05 07:34 | NUR ---
ICU/RN: INITIAL NOTES, AM RECEIVED REPORT FROM NIGHT NURSE. PT INTUBATED ETT 7.5 AND 27CM AT THE LIP. PT ON VENT SETTINGS ORDERED NO ACUTE DISTRESS NOTED. PT OPENS EYES, DOES NOT FOLLOW COMMANDS. SINUS TACH ON TELE. OGT IN PLACE, PLACEMENT VERIFIED, TUBE FEEDING INFUSING ORDERED, TOLERATING WELL. PT TURNED AND REPOSITIONED, ALL NEEDS ATTENDED TO, SAFETY MEASURES TAKEN, BED IN LOW POSITION, SIDE RAILS UP, CALL LIGHT WITHIN REACH. WILL CONTINUE CARE. PT SCHEDULED FOR TRACH PLACEMENT Sunday. CONSENTS IN CHART.
[2019-12-05] MEDS: POTASSIUM CHLORIDE 20 MEQ POWDER PACKET GT SCH ×3 (08:32→11:09)
[2019-12-05] MEDS: HYDROCORTISONE SOD SUCCINATE 100 MG/2 ML VIAL IV SCH (08:32)
[2019-12-05] MEDS: PANTOPRAZOLE 40 MG/PACK PACK NG SCH (08:32)
[2019-12-05] MEDS: PROSOURCE / PROSTAT (PYXIS) 30 ML UDC GT SCH (08:32)
[2019-12-05] MEDS: ZINC SULFATE 220 MG CAPSULE PO SCH (08:34)
--- NOTE | 2019-12-05 10:45 | NUR ---
ICU/RN: HD STARTED. VSS. WILL CONTINUE TO MONITOR
[2019-12-05] MEDS: DAKINS QUARTER STRENGTH (0.125%) 480 ML BOTTLE TOP SCH (17:16)
[2019-12-05] MEDS: NEPRO 1,000 ML BOTTLE GT PRN (17:16)
[2019-12-05] MEDS: TAMSULOSIN 0.4 MG CAP.SR.24H PO SCH (17:18)
--- NOTE | 2019-12-05 18:44 | NUR ---
ICU/RN ENDING NOTES,AM REPORT ENDORSED TO NIGHT NURSE. PT OPENS EYES DOES NOT FOLLOW COMMANDS. OFF SEDATION. INTUBATED ON VENT SETTINGS ORDERED. NO ACUTE DISTRESS NOTED. SINUS TACH ON TELE. ALL NEEDS ATTENDED TO, SAFETY MEASURES TAKEN, BED IN LOW POSITION, SIDE RAILS UP, CALL LIGHT WITHIN REACH. HD DONE TODAY, NOTHING OUT, CLEANING ONLY. SPOKE TO GI, PLANNING ON PEG PLACEMENT ON SUNDAY, SAME TIME TRACH. FAMILY BE NOTIFIED FOR CONSENT.
[2019-12-06] VITALS (79 sets, daily range): BP systolic 72–163; BP diastolic 42–96
[2019-12-06] MEDS: MORPHINE SULFATE INJ 4 MG/ML DISP.SYRIN IV PRN (02:10)
[2019-12-06] MEDS: SEVELAMER CARBONATE 0.8 GM POWD.PACK GT SCH ×3 (02:14→18:17)
[2019-12-06] MEDS: ACETAMINOPHEN 650 MG/20.3 ML UDC NG PRN (02:23)
[2019-12-06] MEDS: LORAZEPAM INJ 2 MG/ML VIAL IV PRN ×3 (04:00→22:23)
[2019-12-06 04:10] LABS: BASOPHILS # (AUTO) 0.1 /CMM (0.0-0.2); BASOPHILS % (AUTO) 0.7 % (0.0-2.0); EOSINOPHILS % (AUTO) 0.6 % (0.0-6.0); HEMATOCRIT 25 % (39-51); HEMOGLOBIN 7.9 g/dL (13.5-17.5); LYMPHOCYTES # (AUTO) 0.7 /CMM (0.8-4.8); LYMPHOCYTES % (AUTO) 3.8 % (20.0-44.0); MEAN CORPUSCULAR HGB CONC 32 g/dl (31.0-36.0); MEAN CORPUSCULAR VOLUME 94 fL (80-96); MONOCYTES # (AUTO) 1.3 /CMM (0.1-1.30); MONOCYTES % (AUTO) 6.9 % (2.0-12.0); NEUTROPHILS # (AUTO) 16.3 /CMM (1.8-8.9); PLATELET COUNT (AUTO) 156 /CMM (150-450); RED BLOOD CELL COUNT(AUTO) 2.64 MIL/uL (4.5-6.0); WHITE BLOOD COUNT (AUTO) 18.5 K/uL (4.3-11.0)
[2019-12-06] MEDS ORDERED: PHENYLEPHRINE 10 MG/ML VIAL ONE (04:13)
[2019-12-06] MEDS ORDERED: PHENYLEPHRINE 100 MG in IV NS 0.9% 240 ML IV PRN (04:30)
[2019-12-06] MEDS: PHENYLEPHRINE 100 MG in IV NS 0.9% 240 ML IV PRN (04:33)
--- NOTE | 2019-12-06 04:57 | NUR ---
RT NOTE Pt rec'd orally intubated via ETT sz #7.5 secured at 27cm at the lipline. Pt shows no signs of resp distress or sob. Pt sx'd for thick large amt of pale yellow secretions. Alarms are set and audible. Vent plugged into red outlet. Ambu bag bedside. Will continue to monitor. Addendum: 12/06/19 at 0459 by NORM BATEMAN RT Amended: Links added.
[2019-12-06 04:59] LABS: CALCIUM, SERUM 7.7 mg/dL (8.5-10.1); CARBON DIOXIDE 29 mmol/L (21-32); CHLORIDE 106 mmol/L (98-107); GLUCOSE 100 mg/dL (74-106); PHOSPHORUS 3.2 mg/dL (2.5-4.9); POTASSIUM 3.5 mmol/L (3.5-5.1); SODIUM SERUM 143 mmol/L (136-145); UREA NITROGEN, BLOOD 55 mg/dL (7-18)
--- NOTE | 2019-12-06 05:38 | NUR ---
RN NOTES RECEIVED PATIENT IN BED, NOTED WITH ELEVATED HEART RATE 140'S TO 150'S. NO SIGNS OF DISTRESS. VENT SETTING WELL TOLERATED. O2SAT AT 96-98%. CALLED MD WITH ORDERS FOR MORPHINE SULFATE 4MG. NOTED AND CARRIED OUT. NOT EFFECTIVE, HEART RATE REMAINS HIGH AT 150'S. AND NOTED SBP DOWN TO 70'S. INFORMED MD WITH ORDERS FOR LAMONTE TO TITRATE, TO MAINTAIN SBP>90. STARTED AT 0.5MCG, EFFECTIVE SBP INCREASED TO 90'S, HEART RATE REMAINS THE SAME. ALSO, PATIENT'S 02SAT WENT DOWN TO 80'S. SEEN AND EVALUATED BY RT. MD MADE AWARE WITH NO NEW ORDER. REPOSITION EVERY TWO HOURS FOR COMFORT. O2SAT 100%. KEPT CLEAN AND DRY WILL ENDORSE TO NEXT SHIFT FOR CONTINUITY OF CARE.
--- NOTE | 2019-12-06 07:54 | NUR ---
ICU/RN: INITIAL NOTES, AM RECEIVED REPORT FROM NIGHT NURSE. PT INTUBATED ETT 7.5 AND 28CM AT THE LIP. PT ON VENT SETTINGS ORDERED NO ACUTE DISTRESS NOTED. PT OPENS EYES, DOES NOT FOLLOW COMMANDS. A.FIB ON TELE (WRIGHT AWARE). RIGHT UPPER ARM PICC LINE PATENT AND INTACT, LAMONTE INFUSING FOR BP SUPPORT, WILL TITRATE PER PROTOCOL. OGT IN PLACE, PLACEMENT VERIFIED, TUBE FEEDING INFUSING ORDERED, TOLERATING WELL. PT TURNED AND REPOSITIONED, ALL NEEDS ATTENDED TO, SAFETY MEASURES TAKEN, BED IN LOW POSITION, SIDE RAILS UP, CALL LIGHT WITHIN REACH. WILL CONTINUE CARE.
[2019-12-06 08:00] LABS: ABG BASE EXCESS 2.2 mmol/L; ABG PCO2 37.8 mmHg (35.0-45.0); ABG PH 7.457 (7.350-7.450); ABG PO2 70.6 mmHg (75.0-100.0); AaDO2 243.4 mmHg; COHb 0.4 % (0.5-1.5); MetHb 0.1 % (0.0-1.5); O2Hb 93.5 % (94.0-97.0); PEEP,BG 5 cm H2O; SITE, ABG Right Radial; VT, ABG 500 mL
[2019-12-06] MEDS: PANTOPRAZOLE 40 MG/PACK PACK NG SCH (08:42)
[2019-12-06] MEDS: ZINC SULFATE 220 MG CAPSULE PO SCH (08:42)
[2019-12-06] MEDS: POTASSIUM CHLORIDE 20 MEQ POWDER PACKET GT SCH ×3 (08:42→12:45)
[2019-12-06] MEDS: HEPARIN SODIUM, PORCINE 5000 UNITS/1 ML VIAL SQ SCH ×2 (08:44→21:11)
[2019-12-06] MEDS: HYDROCORTISONE SOD SUCCINATE 100 MG/2 ML VIAL IV SCH (08:45)
[2019-12-06] MEDS: PROSOURCE / PROSTAT (PYXIS) 30 ML UDC GT SCH (08:51)
--- NOTE | 2019-12-06 09:20 | NUR ---
ICU/RN: HR 150S, 12LEAD EKG DONE, SENT TO [facility]. TLO ORDERS FOR ADENOSINE RECEIVED.
[2019-12-06] MEDS ORDERED: ADENOSINE 6 MG/2 ML VIAL IVP ONE ×2 (10:00)
--- NOTE | 2019-12-06 10:30 | NUR ---
ICU/RN: PT CONVERTED BACK TO SINUS, NO ADENOSINE GIVEN, ROUTINE DIGOXIN ORDERED, WILL ADMIN PER SCHEDULE AND CONTINUE TO MONITOR.
--- NOTE | 2019-12-06 11:30 | NUR ---
ICU/RN: LAMONTE OFF, BP 121/66, HR 101. WILL CONTINUE TO MONITOR
--- NOTE | 2019-12-06 11:40 | NUR ---
ICU/RN: COVID TEST CAME BACK POSITIVE. INFORMED.
[2019-12-06] MEDS: DIGOXIN INJ 0.5 MG/2 ML AMPUL IV SCH ×3 (12:46→23:54)
[2019-12-06] MEDS: TAMSULOSIN 0.4 MG CAP.SR.24H PO SCH (18:17)
[2019-12-06] MEDS: NEPRO 1,000 ML BOTTLE GT PRN (18:18)
[2019-12-06] MEDS: DAKINS QUARTER STRENGTH (0.125%) 480 ML BOTTLE TOP SCH (18:18)
--- NOTE | 2019-12-06 18:44 | NUR ---
ICU/RN ENDING NOTES,AM REPORT WILL BE ENDORSED TO NIGHT NURSE. PT OPENS EYES DOES NOT FOLLOW COMMANDS. OFF SEDATION. INTUBATED ON VENT SETTINGS ORDERED. NO ACUTE DISTRESS NOTED. SINUS TACH ON TELE. ALL NEEDS ATTENDED TO, SAFETY MEASURES TAKEN, BED IN LOW POSITION, SIDE RAILS UP. PT NOW COVID POSITIVE, ISOLATION PRECAUTIONS IN PLACE.
--- NOTE | 2019-12-06 20:00 | NUR ---
Received patient resting.Dx;PNA COVID 19 +.DROPLET/CONTACT Isolation precaution maintained. Open eyes but not following simple commands.Orally intubated to mechanical vent.Vent settings well tolerated.SPO2 100%.Secretion suction with small white secretions.Afebrile.ST 100's per monitor.Normotensive.Patient with OGT feeding in progress.Placement verified.HOB elevated. FC to gravity.Turned and repositioned.Continue monitoring.No acute distress noted.
--- NOTE | 2019-12-06 22:30 | NUR ---
Patient tachypneic RR 35-38,tachycardic 110-116 PRN Ativan administered.Turned and reposition. Secretions suction.Oral hygiene done.
[2019-12-07] VITALS (35 sets, daily range): BP systolic 108–158; BP diastolic 42–82
--- NOTE | 2019-12-07 | NUR ---
Patient resting T-max 98.8 tachy 104.Digoxin 3rd dose administered.AM care done.Sacral wound care done.Turned and and repositioned.
[2019-12-07] MEDS: SEVELAMER CARBONATE 0.8 GM POWD.PACK GT SCH ×3 (02:10→18:02)
[2019-12-07] MEDS: LORAZEPAM INJ 2 MG/ML VIAL IV PRN ×3 (03:15→16:44)
[2019-12-07 04:18] LABS: BASOPHILS % (AUTO) 0.3 % (0.0-2.0); EOSINOPHILS % (AUTO) 1.5 % (0.0-6.0); HEMATOCRIT 25 % (39-51); LYMPHOCYTES # (AUTO) 0.6 /CMM (0.8-4.8); LYMPHOCYTES % (AUTO) 4.5 % (20.0-44.0); MEAN CORPUSCULAR HGB CONC 32 g/dl (31.0-36.0); MEAN CORPUSCULAR VOLUME 93 fL (80-96); MONOCYTES # (AUTO) 0.9 /CMM (0.1-1.30); MONOCYTES % (AUTO) 6.5 % (2.0-12.0); NEUTROPHILS # (AUTO) 12.1 /CMM (1.8-8.9); NEUTROPHILS % (AUTO) 87.2 % (43.0-81.0); PLATELET COUNT (AUTO) 152 /CMM (150-450); RED BLOOD CELL COUNT(AUTO) 2.69 MIL/uL (4.5-6.0); WHITE BLOOD COUNT (AUTO) 13.8 K/uL (4.3-11.0)
--- NOTE | 2019-12-07 04:20 | NUR ---
Feverish temp 100.Cooling measures done.Patient tolerating tube feeding well.Was medicated with Ativan for increase RR 35-38.RTJULIAY tried to titrate FIO2 from 50%to 40% but patient desat to 88%.Resumed back to 50%.
[2019-12-07 04:29] LABS: CALCIUM, SERUM 7.5 mg/dL (8.5-10.1); CARBON DIOXIDE 31 mmol/L (21-32); CHLORIDE 108 mmol/L (98-107); GLUCOSE 98 mg/dL (74-106); MAGNESIUM 1.9 mg/dL (1.8-2.4); PHOSPHORUS 2.7 mg/dL (2.5-4.9); POTASSIUM 3.7 mmol/L (3.5-5.1); SODIUM SERUM 145 mmol/L (136-145); UREA NITROGEN, BLOOD 57 mg/dL (7-18)
--- NOTE | 2019-12-07 07:12 | NUR ---
Patient resting latest temp 100.3.Continuous cooling measures done.All needs met and safety measures maintained.Tolerating OGT feeding well.For Perma cath and trach placement on sunday. With consents signed.To verify with Surgeon if patient will go to Surgery since patient is now COVID 19 +.Will endorse to day shift for [facility]. Addendum: 12/07/19 at 0730 by TRICE HU RN Patient for Trach and Peg placement sunday with consent signed.
--- NOTE | 2019-12-07 08:52 | NUR ---
ORDER BOOKER NOTE SEEN AND EXAMINED BY DR QUIÑONEZ, INFORMED PATIENT COVID POSITIVE AGAIN. CLARIFIED HEPARIN ORDER. PER MD OK TO GIVE THIS MORNINGS HEPARIN AND HOLD THE EVENING HEPARIN IN CASE SURGERY HAPPENS IN AM. FOLLOW UP WITH SURGEON.
[2019-12-07] MEDS: ACETAMINOPHEN 650 MG/20.3 ML UDC NG PRN (09:12)
[2019-12-07] MEDS: PROSOURCE / PROSTAT (PYXIS) 30 ML UDC GT SCH (09:12)
[2019-12-07] MEDS: PANTOPRAZOLE 40 MG/PACK PACK NG SCH (09:13)
[2019-12-07] MEDS: HYDROCORTISONE SOD SUCCINATE 100 MG/2 ML VIAL IV SCH (09:13)
[2019-12-07] MEDS: HEPARIN SODIUM, PORCINE 5000 UNITS/1 ML VIAL SQ SCH ×2 (09:13→21:00)
[2019-12-07] MEDS: ZINC SULFATE 220 MG CAPSULE PO SCH (09:14)
[2019-12-07] MEDS: LINEZOLID RTU BAG 600 MG in PREMIX 1 EA IV SCH ×2 (09:15→22:12)
--- NOTE | 2019-12-07 12:00 | NUR ---
ICE GUARD INSPECTOR NOTE NOTED PATIENT OGT CLOGGED, NEW OGT PLACE, POSITIVE PLACEMENT BY 2 NURSES. WILL CONTINUE TO MONITOR.
[2019-12-07] MEDS: DILTIAZEM HCL 30 MG TABLET NG SCH ×2 (12:33→18:02)
--- NOTE | 2019-12-07 16:29 | NUR ---
TESTER ARMATURE OR FIELDS NOTE CLARIFIED ORDER EGD WITH PEG PLACEMENT CONSENT WITH DR JEWELL. INFORMED PATIENT CAME BACK POSITIVE FOR COVID. PER DR JEWELL OBTAIN CONSENT FOR NOW AND NO TUBE FEEDINGS AT MIDNIGHT.
[2019-12-07] MEDS: TAMSULOSIN 0.4 MG CAP.SR.24H PO SCH (18:02)
[2019-12-07] MEDS: DAKINS QUARTER STRENGTH (0.125%) 480 ML BOTTLE TOP SCH (18:02)
--- NOTE | 2019-12-07 19:10 | NUR ---
GROCERY SPECIALIST OPENING NOTES: Received pt resting in bed, on isolation for positive Covid. SR-ST on tele monitor. Pt intubated ETT 7.8/28cm at the lip. On vent settings as ordered. No respiratory distress noted. OGT in place with Nephro running at 40ml/hr. Flushed and patent. CANDIDO PICC line flushed and patent. Dressing c/d/i. Thompson cath in place, patent and draining urine via gravity. Pt to be NPO except meds after midnight for potential trach and peg placement tomorrow. Safety measures in place. Will continue to monitor.
[2019-12-07] MEDS ORDERED: AZITHROMYCIN 500 MG in IV D5W 250 ML IV SCH (19:30)
--- NOTE | 2019-12-07 20:40 | NUR ---
ORACLE FUSION MIDDLEWARE DEVELOPER NOTE: 1930 dose of Azithromycin will be given late d/t not having access to Pyxis and having to give RN Golf Tournament Consultant paperwork to receive medication. Will administer once received.
[2019-12-07] MEDS ORDERED: AZITHROMYCIN 500 MG VIAL ONE (20:41)
--- NOTE | 2019-12-07 21:25 | NUR ---
INSOLE DEPARTMENT WORKER NOTE: Faxed order for Zyvox to RN Material Crew Supervisor. Will administer once medication is brought.
[2019-12-07] MEDS ORDERED: LINEZOLID RTU BAG 300 ML IV ONE (22:08)
[2019-12-07] MEDS ORDERED: LINEZOLID RTU BAG 600 MG in PREMIX 1 EA IV SCH (23:00)
[2019-12-08] VITALS (41 sets, daily range): BP systolic 94–156; BP diastolic 49–99
[2019-12-08] MEDS: DILTIAZEM HCL 30 MG TABLET NG SCH ×5 (00:05→23:26)
--- NOTE | 2019-12-08 00:05 | NUR ---
BATH MIXER NOTE: OGT feeding turned off. Pt NPO except meds.
[2019-12-08] MEDS: SEVELAMER CARBONATE 0.8 GM POWD.PACK GT SCH ×3 (01:50→18:00)
[2019-12-08 04:55] LABS: BASOPHILS # (AUTO) 0.1 /CMM (0.0-0.2); BASOPHILS % (AUTO) 0.6 % (0.0-2.0); EOSINOPHILS % (AUTO) 1.6 % (0.0-6.0); HEMATOCRIT 25 % (39-51); HEMOGLOBIN 7.8 g/dL (13.5-17.5); LYMPHOCYTES # (AUTO) 0.5 /CMM (0.8-4.8); LYMPHOCYTES % (AUTO) 3.8 % (20.0-44.0); MEAN CORPUSCULAR HGB CONC 32 g/dl (31.0-36.0); MEAN CORPUSCULAR VOLUME 95 fL (80-96); MONOCYTES # (AUTO) 1.1 /CMM (0.1-1.30); MONOCYTES % (AUTO) 7.8 % (2.0-12.0); NEUTROPHILS # (AUTO) 12.1 /CMM (1.8-8.9); NEUTROPHILS % (AUTO) 86.2 % (43.0-81.0); PLATELET COUNT (AUTO) 155 /CMM (150-450); RED BLOOD CELL COUNT(AUTO) 2.59 MIL/uL (4.5-6.0); WHITE BLOOD COUNT (AUTO) 14.1 K/uL (4.3-11.0)
[2019-12-08 05:11] LABS: CALCIUM, SERUM 7.4 mg/dL (8.5-10.1); CARBON DIOXIDE 30 mmol/L (21-32); CHLORIDE 106 mmol/L (98-107); GLUCOSE 86 mg/dL (74-106); POTASSIUM 3.4 mmol/L (3.5-5.1); SODIUM SERUM 144 mmol/L (136-145); UREA NITROGEN, BLOOD 56 mg/dL (7-18)
--- NOTE | 2019-12-08 05:30 | NUR ---
ESTIMATOR PAPERBOARD BOXES NOTE: Spoke w/ pt's step son David to obtain verbal consent for tracheostomy placement for today. Consent given, forms in chart.
--- NOTE | 2019-12-08 06:15 | NUR ---
RT NOTES END OF SHIFT> PT REMAINS STABLE WITH ETT PROPERLY SECURED ON VENT. VENT/ ALARMS WELL FUNCTIONING WITH VENT TO RED OUTLET. PRN SX FOR MOD PALE THICK SECRETIONS. NO CHANGES NOTED IN PT. STATUS. NO RESP DISTRESS NOTED ALL SHIFT
--- NOTE | 2019-12-08 07:08 | NUR ---
REAL ESTATE DEVELOPMENT MANAGER CLOSING NOTES: Pt in bed, obtunded on isolation for Covid positive. SR w/ BBB on tele monitor. On mechanical ventilation tolerating settings well. No SOB or respiratory distress noted during shift. No acute changes noted during shift. All medications administered as ordered. Safety measures in place. Will endorse to AM nurse for [facility].
[2019-12-08] MEDS ORDERED: POTASSIUM CHLORIDE 20 MEQ POWDER PACKET NG SCH ×2 (08:30→11:00)
[2019-12-08] MEDS ORDERED: ROCURONIUM BROMIDE 50 MG/5 ML ONE (08:58)
[2019-12-08] MEDS ORDERED: FAMOTIDINE/PF INJ 20 MG/2 ML VIAL IV ONE (08:58)
--- NOTE | 2019-12-08 08:59 | NUR ---
COAL EQUIPMENT OPERATOR NOTE PATIENT LEFT FOR SURGERY.
[2019-12-08] MEDS: HEPARIN SODIUM, PORCINE 5000 UNITS/1 ML VIAL SQ SCH (09:00)
--- NOTE | 2019-12-08 10:30 | NUR ---
MEMBERSHIP ADMINISTRATOR NOTE 1010- PATIENT RETURNED FROM SURGERY, S/P TRACHEOSTOMY SHILEY [address] NO BLEEDING NOTED. 1018- CALLED DR COULTER CLARIFIED ORDERS REGARDING PLAVIX, RELAYED PATIENT IS NOT ON PLAVIX BUT ON HEPARIN. PER MD OK TO RESUME PLAVIX TOMORROW IF MD WOULD LIKE. HOLD HEPARIN DOSE TODAY. NOTED AND CARRIED OUT.
[2019-12-08] MEDS: PANTOPRAZOLE 40 MG/PACK PACK NG SCH (10:53)
[2019-12-08] MEDS: ZINC SULFATE 220 MG CAPSULE PO SCH (10:53)
[2019-12-08] MEDS: ACETAMINOPHEN 650 MG/20.3 ML UDC NG PRN (10:53)
[2019-12-08] MEDS: PROSOURCE / PROSTAT (PYXIS) 30 ML UDC GT SCH (10:55)
[2019-12-08] MEDS: LINEZOLID RTU BAG 600 MG in PREMIX 1 EA IV SCH (12:40)
[2019-12-08] MEDS ORDERED: CEFAZOLIN 1 GM ONE (13:11)
--- NOTE | 2019-12-08 14:44 | NUR ---
STORAGE BRINE WORKER NOTE CLARIFIED WITH DR SANDERSON REGARDING CONVALESCENT PLASMA INFUSION, PER MD HOUSE TO GIVE ONE UNIT. DR JEWELL AT BEDSIDE WITH SURGICAL TEAM FOR PEG PLACEMENT.
--- NOTE | 2019-12-08 15:19 | NUR ---
INTERNET SYSTEMS ADMINISTRATOR NOTE S/P PEG PLACEMENT. PER DR JEWELL DON'T USE GT FOR MEDS OR WATER FOR 4 HOURS AND START GTF TOMORROW.
[2019-12-08] MEDS: TAMSULOSIN 0.4 MG CAP.SR.24H PO SCH (18:00)
[2019-12-08] MEDS: DAKINS QUARTER STRENGTH (0.125%) 480 ML BOTTLE TOP SCH (18:07)
--- NOTE | 2019-12-08 18:15 | NUR ---
PRODUCE LABORER NOTE NO TRANSFUSION REACTION THE FIRST 15 MINUTES OF CONVALESCENT PLASMA TRANSFUSION
--- NOTE | 2019-12-08 19:00 | NUR ---
horticulturalist note patient completed convalescent plasma with no transfusion reaction noted, patient tolerated. endorsed 1 unit prbc to overnight stocker to give.
--- NOTE | 2019-12-08 19:10 | NUR ---
ROD AND TUBE STRAIGHTENER OPENING NOTES: Received pt resting in bed, obtunded. On isolation for Covid positive. On trach & mechanical ventilation tolerating settings well. No SOB or respiratory distress noted. S/P trach and PEG placement earlier today. SR on tele monitor. CANDIDO PICC and right femoral HD cath in place. Thompson cath in place draining urine via gravity. Safety measures in place. Will continue to monitor.
[2019-12-08] MEDS ORDERED: FEE PK DOSING 1 MIN EA MC ONE (19:22)
[2019-12-08] MEDS: HYDROXYCHLOROQUINE 200 MG TABLET PO SCH (20:01)
[2019-12-08] MEDS: VANCOMYCIN 1 GM in IV D5W 250 ML IV SCH (20:02)
--- NOTE | 2019-12-08 20:30 | NUR ---
FLAME BRAZING MACHINE OPERATOR NOTE: Gave report to JACOBY Ocampo for [facility].
--- NOTE | 2019-12-08 20:35 | NUR ---
RN NOTES, RECEIVED PATIENT FROM ICU IN COMPANY OF CHARGE NURSE, RT AND PRIMARY NURSE, PATIENT ON MECHANICAL VENTILATOR TOLERATING SETTINGS WELL, NO SOB./ACUTE DISTRESS NOTED, ATTACH TO MONITOR AND SR ON TELE WITH BBB WITH HR 80S AT THIS TIME, VS 144/69,, 98.5, O2 SAT 100%, 28RR, S/P TRACH AND PEG TODAY, NO ABNORMALITIES NOTED AT SITE, PATIENT WITH BLOOD TRANSFUSION ONGOING RIGHT NOW PATIENT TOLERATED WELL, AFEBRILE, WILL CONTINUE TO MONITOR CLOSELY.
--- NOTE | 2019-12-08 20:40 | NUR ---
THREADER NOTE: Pt transferred to ICU overflow room 101 via ACLS protocols along with RT.
[2019-12-08] MEDS: MEROPENEM 500 MG in IV NS 0.9% 50 ML IV SCH (22:02)
[2019-12-09] VITALS (23 sets, daily range): BP systolic 111–161; BP diastolic 60–104
[2019-12-09] MEDS: SEVELAMER CARBONATE 0.8 GM POWD.PACK GT SCH ×3 (01:29→18:17)
[2019-12-09] MEDS: DILTIAZEM HCL 30 MG TABLET NG SCH ×3 (05:04→18:17)
[2019-12-09 06:51] LABS: BASOPHILS % (AUTO) 0.3 % (0.0-2.0); EOSINOPHILS % (AUTO) 0.7 % (0.0-6.0); HEMATOCRIT 31 % (39-51); HEMOGLOBIN 10.1 g/dL (13.5-17.5); LYMPHOCYTES # (AUTO) 0.5 /CMM (0.8-4.8); LYMPHOCYTES % (AUTO) 2.8 % (20.0-44.0); MEAN CORPUSCULAR HGB CONC 32 g/dl (31.0-36.0); MEAN CORPUSCULAR VOLUME 92 fL (80-96); MONOCYTES # (AUTO) 1.3 /CMM (0.1-1.30); MONOCYTES % (AUTO) 8.2 % (2.0-12.0); NEUTROPHILS # (AUTO) 14.5 /CMM (1.8-8.9); PLATELET COUNT (AUTO) 153 /CMM (150-450); RED BLOOD CELL COUNT(AUTO) 3.38 MIL/uL (4.5-6.0); WHITE BLOOD COUNT (AUTO) 16.4 K/uL (4.3-11.0)
[2019-12-09 07:08] LABS: CALCIUM, SERUM 7.4 mg/dL (8.5-10.1); CARBON DIOXIDE 28 mmol/L (21-32); CHLORIDE 105 mmol/L (98-107); GLUCOSE 66 mg/dL (74-106); POTASSIUM 3.4 mmol/L (3.5-5.1); SODIUM SERUM 143 mmol/L (136-145); UREA NITROGEN, BLOOD 53 mg/dL (7-18)
--- NOTE | 2019-12-09 07:20 | NUR ---
RN NOTES, NO SIGNIFICANT CHANGE IN CONDITION, PATIENT CONTINUE ON MECHANICAL VENTILATOR, F1O2 JUS T INCREASED TO 60% THIS THIS [id number] FUE TO PATIENT 88-902%, NO DISTRESS NOTED THO, VENT CHANGES DONE BY RT, PATIENT TOLERATED WELL, O2 SAT LEVEL AT THIS TIME 96-100%, S/P TRACH AND PEG YESTERDAY WELL ONE UNIT OF PRBC LAST NIGHT, PATIENT CONT ON ISOLATION PRECAUTIONS, FOR COVID 19 +, ENDORSED TO SE FOR CONTINUATION OF CARE.
[2019-12-09] MEDS: MEROPENEM 500 MG in IV NS 0.9% 50 ML IV SCH ×2 (09:00→22:21)
[2019-12-09] MEDS ORDERED: POTASSIUM CHLORIDE 20 MEQ POWDER PACKET NG SCH (09:30)
[2019-12-09] MEDS: PROSOURCE / PROSTAT (PYXIS) 30 ML UDC GT SCH (10:24)
[2019-12-09] MEDS: HYDROXYCHLOROQUINE 200 MG TABLET PO SCH ×2 (10:25→18:17)
[2019-12-09] MEDS: PANTOPRAZOLE 40 MG/PACK PACK NG SCH (10:25)
[2019-12-09] MEDS: ZINC SULFATE 220 MG CAPSULE PO SCH (10:25)
[2019-12-09] MEDS: CLOPIDOGREL BISULFATE 75 MG TABLET PO SCH (10:50)
[2019-12-09] MEDS: MORPHINE SULFATE INJ 4 MG/ML DISP.SYRIN IV PRN ×2 (10:50→18:06)
[2019-12-09] MEDS: TAMSULOSIN 0.4 MG CAP.SR.24H PO SCH (18:17)
[2019-12-09] MEDS: DAKINS QUARTER STRENGTH (0.125%) 480 ML BOTTLE TOP SCH (18:18)
--- NOTE | 2019-12-09 19:20 | NUR ---
Mental Status Assessment At the beginning of shift, patient was asked in Yemeni, "good?" he shook his head no. When asked "pain?" he nodded yes. I squeezed his fingers and he squeezed mine in return. Later on in the shift, patient was not as interactive His eyes were open, he would make eye contact, but not "answering" questions. The latter happened two more times throughout the shift.
--- NOTE | 2019-12-09 19:30 | NUR ---
BEAR KEEPER INITIAL SHIFT NOTES RECEIVED PATIENT IN BED, ASLEEP, EYES CLOSED, TRACH CONNECTED TO MECHANICAL VENTILATION, FIO2 @ 60%, TOLERATING FAIRLY. PATIENT WAKES TO TACTILE STIMULI, TRACKING, OCCASIONALLY NODS YES/NO TO QUESTIONS. GT PATENT AND INTACT, TOLERATING TUBE FEEDING FAIRLY, RATE DECREASED TO 20ML/HR, WILL SLOWLY INCREASE TO GOAL RATE OF 40ML/HR. CANDIDO PICC PATENT AND INTACT, ALL PORTS FLUSHED WITH NS. RIGHT FEMORAL HD CATH DRESSING CLEAN AND DRY, NO BLEEDING NOTED AT SITE. . ISOLATION PRECAUTIONS OBSERVED.WILL MONITOR CLOSELY
[2019-12-09] MEDS: VANCOMYCIN 1 GM in IV D5W 250 ML IV SCH (20:26)
[2019-12-09] MEDS: HEPARIN SODIUM, PORCINE 5000 UNITS/1 ML VIAL SQ SCH (22:21)
[2019-12-10] VITALS (67 sets, daily range): BP systolic 56–165; BP diastolic 35–81
[2019-12-10] MEDS: MORPHINE SULFATE INJ 4 MG/ML DISP.SYRIN IV PRN ×2 (00:37→07:51)
[2019-12-10] MEDS: DILTIAZEM HCL 30 MG TABLET NG SCH ×5 (00:40→23:58)
[2019-12-10] MEDS: SEVELAMER CARBONATE 0.8 GM POWD.PACK GT SCH ×3 (01:45→17:34)
--- NOTE | 2019-12-10 04:00 | NUR ---
WAGE AND HOUR INVESTIGATOR NOTES PATIENT RESTING IN BED, APPEARS COMFORTABLE, HOWEVER NOTED TO DESAT TO THE 80s. PATIENT ASSESSED BY RT, WITH RECOMMENDATION TO INCREASE FIO2 TO 90%. ORDER OBTAINED, WILL CCARRY OUT AND MONITOR CLOSELY
[2019-12-10 04:46] LABS: CALCIUM, SERUM 7.8 mg/dL (8.5-10.1); CARBON DIOXIDE 29 mmol/L (21-32); CHLORIDE 106 mmol/L (98-107); CREATININE 2.2 mg/dL (0.6-1.3); GLUCOSE 68 mg/dL (74-106); POTASSIUM 3.7 mmol/L (3.5-5.1); SODIUM SERUM 145 mmol/L (136-145); UREA NITROGEN, BLOOD 50 mg/dL (7-18)
[2019-12-10] MEDS: BISACODYL SUPP (10 MG) 10 MG/SUPP.RECT SUPP.RECT RC PRN (07:50)
[2019-12-10] MEDS: ZINC SULFATE 220 MG CAPSULE PO SCH (07:50)
[2019-12-10] MEDS: PANTOPRAZOLE 40 MG/PACK PACK NG SCH (07:50)
[2019-12-10] MEDS: HYDROXYCHLOROQUINE 200 MG TABLET PO SCH ×2 (07:50→17:35)
[2019-12-10] MEDS: PROSOURCE / PROSTAT (PYXIS) 30 ML UDC GT SCH (07:53)
[2019-12-10] MEDS: POTASSIUM CHLORIDE 20 MEQ POWDER PACKET GT SCH ×4 (08:00→12:22)
[2019-12-10 08:15] LABS: BASOPHILS # (AUTO) 0.1 /CMM (0.0-0.2); BASOPHILS % (AUTO) 0.3 % (0.0-2.0); EOSINOPHILS % (AUTO) 0.2 % (0.0-6.0); HEMATOCRIT 32 % (39-51); HEMOGLOBIN 10.1 g/dL (13.5-17.5); LYMPHOCYTES # (AUTO) 0.5 /CMM (0.8-4.8); MEAN CORPUSCULAR HGB CONC 32 g/dl (31.0-36.0); MEAN CORPUSCULAR VOLUME 94 fL (80-96); MONOCYTES # (AUTO) 1.5 /CMM (0.1-1.30); MONOCYTES % (AUTO) 6.4 % (2.0-12.0); NEUTROPHILS # (AUTO) 21.6 /CMM (1.8-8.9); NEUTROPHILS % (AUTO) 91.1 % (43.0-81.0); PLATELET COUNT (AUTO) 167 /CMM (150-450); RED BLOOD CELL COUNT(AUTO) 3.41 MIL/uL (4.5-6.0); WHITE BLOOD COUNT (AUTO) 23.7 K/uL (4.3-11.0)
[2019-12-10] MEDS: MEROPENEM 500 MG in IV NS 0.9% 50 ML IV SCH ×2 (08:23→22:08)
[2019-12-10] MEDS: ACETAMINOPHEN 650 MG/20.3 ML UDC NG PRN (08:35)
[2019-12-10 08:45] LABS: ABG BASE EXCESS 3.6 mmol/L; ABG OXYGEN SATURATION 89.7 % (92.0-98.5); ABG PCO2 41.5 mmHg (35.0-45.0); ABG PH 7.446 (7.350-7.450); ABG PO2 57.9 mmHg (75.0-100.0); AaDO2 541.3 mmHg; MetHb 0.3 % (0.0-1.5); O2Hb 88.5 % (94.0-97.0); PEEP,BG 5 cm H2O; SITE, ABG Right Radial; VT, ABG 500 mL
--- NOTE | 2019-12-10 09:10 | NUR ---
VENT CHANGES BELOW PER DR. SANDERSON: PEEP INCREASED FROM 5cmH20 TO 72ltH83. I-TIME INCREASED TO 1.06 TO GET THE TARGET 2:1 I:E ratio. Addendum: 12/10/19 at 0913 by AMY COLINDRES RT Amended: Links added.
--- NOTE | 2019-12-10 09:24 | NUR ---
FIO2 INCREASED TO 100% DUE TO SPO2 87 - 88% ON 90% FIO2 Addendum: 12/10/19 at 0926 by AMY COLINDRES RT Amended: Links added.
--- NOTE | 2019-12-10 10:38 | NUR ---
1:1 TARGET I:E RATIO PER DR. SANDERSON Addendum: 12/10/19 at 1038 by AMY COLINDRES RT Amended: Links added.
[2019-12-10] MEDS: PROPOFOL 100 ML IV PRN (10:40)
[2019-12-10] MEDS ORDERED: Magnesium 1GM/D5W 100ML PREMIX 100 ML IV SCH (11:30)
[2019-12-10] MEDS: CLOPIDOGREL BISULFATE 75 MG TABLET PO SCH (12:21)
[2019-12-10] MEDS: HEPARIN SODIUM, PORCINE 5000 UNITS/1 ML VIAL SQ SCH ×2 (12:22→21:06)
[2019-12-10 12:23] LABS: ABG BASE EXCESS 0.5 mmol/L; ABG OXYGEN SATURATION 95.3 % (92.0-98.5); ABG PCO2 41.6 mmHg (35.0-45.0); ABG PH 7.402 (7.350-7.450); ABG PO2 79.5 mmHg (75.0-100.0); AaDO2 591.9 mmHg; COHb 0.4 % (0.5-1.5); O2Hb 94.9 % (94.0-97.0); PEEP,BG 10 cm H2O; SITE, ABG Right Radial; VT, ABG 500 mL
[2019-12-10] MEDS: PHENYLEPHRINE 100 MG in IV NS 0.9% 240 ML IV PRN (12:30)
--- NOTE | 2019-12-10 12:32 | NUR ---
PEEP [address] SANDERSON Addendum: 12/10/19 at 1232 by AMY COLINDRES RT Amended: Links added.
--- NOTE | 2019-12-10 15:15 | NUR ---
FIO2 DECREASED FROM 100% TO 80% SPO2 99% TO 100% Addendum: 12/10/19 at 1515 by AMY COLINDRES RT Amended: Links added.
[2019-12-10] MEDS: DAKINS QUARTER STRENGTH (0.125%) 480 ML BOTTLE TOP SCH (17:35)
[2019-12-10] MEDS: TAMSULOSIN 0.4 MG CAP.SR.24H PO SCH (17:35)
--- NOTE | 2019-12-10 19:55 | NUR ---
PT RECEIVED TRACHED SHILEY 8 ON MECHANICAL VENTILATION WITH NOTED SETTINGS. SX DONE, TRACH SECURED AND PATENT. ALARMS ON AND AUDIBLE. NO RESPIRATORY DISTRESS NOTED AT THIS TIME. WILL CONTINUE TO MONITOR T/O SHIFT.
[2019-12-10] MEDS: VANCOMYCIN 1 GM in IV D5W 250 ML IV SCH (20:50)
[2019-12-11] VITALS (96 sets, daily range): BP systolic 72–133; BP diastolic 40–76
[2019-12-11] MEDS: NEPRO 1,000 ML BOTTLE GT PRN (00:02)
[2019-12-11] MEDS: ACETAMINOPHEN 650 MG/20.3 ML UDC NG PRN (00:22)
[2019-12-11] MEDS: SEVELAMER CARBONATE 0.8 GM POWD.PACK GT SCH ×3 (01:40→17:30)
[2019-12-11] MEDS: PROPOFOL 100 ML IV PRN ×6 (03:20→22:16)
[2019-12-11] MEDS: PHENYLEPHRINE 100 MG in IV NS 0.9% 240 ML IV PRN ×2 (03:20→18:59)
[2019-12-11 04:24] LABS: CARBON DIOXIDE 30 mmol/L (21-32); CHLORIDE 106 mmol/L (98-107); CREATININE 2.5 mg/dL (0.6-1.3); GLUCOSE 130 mg/dL (74-106); POTASSIUM 4.2 mmol/L (3.5-5.1); SODIUM SERUM 143 mmol/L (136-145); UREA NITROGEN, BLOOD 62 mg/dL (7-18)
[2019-12-11] MEDS: DILTIAZEM HCL 30 MG TABLET NG SCH ×3 (05:45→17:28)
--- NOTE | 2019-12-11 07:30 | NUR ---
LATHE TENDER OPENING NOTE Patient sedated in bed no signs of distress. On trach and vent tolerating well. Vital signs within normal limits PEG in place running Nepro @ 40ml/hr tolerating well. On yusuf catheter draining cloudy yellow urine. CANDIDO PICC line running Dirprivan @ 30mcg and Fernie @ 1.2 tolerating well. Has R. Femoral HD cath awaiting blood culture results. Safety measures reinforced. Bed locked and on lowest position. Siderails up x2. Will cont to monitor
--- NOTE | 2019-12-11 08:28 | NUR ---
ACTUARIAL INTERN INITIAL SHIFT NOTES RECEIVED PATIENT IN BED, ASLEEP, EYES CLOSED, TRACH CONNECTED TO MECHANICAL VENTILATION, FIO2 @ 80%, TOLERATING FAIRLY. PATIENT WAKES TO TACTILE STIMULI, SOMETIMES TRACKS, OCCASIONALLY NODS YES/NO TO QUESTIONS. GT PATENT AND INTACT, TOLERATING TUBE FEEDING WELL, ACHIEVED GOAL RATE OF 40ML/HR. CANDIDO PICC PATENT AND INTACT, ALL PORTS FLUSHED WITH NS, DIPRIVAN DRIP @ 30MCG/KG/MIN, NEOSYNEPHRINE DRIP @ 1.2 MCG/KG/MIN. RIGHT FEMORAL HD CATH DRESSING CLEAN AND DRY, NO BLEEDING NOTED AT SITE. ISOLATION PRECAUTIONS OBSERVED.WILL MONITOR CLOSELY
[2019-12-11] MEDS: ZINC SULFATE 220 MG CAPSULE PO SCH (08:42)
[2019-12-11] MEDS: PANTOPRAZOLE 40 MG/PACK PACK NG SCH (08:42)
[2019-12-11] MEDS: MEROPENEM 500 MG in IV NS 0.9% 50 ML IV SCH ×2 (08:42→21:06)
[2019-12-11] MEDS: HYDROXYCHLOROQUINE 200 MG TABLET PO SCH ×2 (08:42→17:27)
[2019-12-11] MEDS: CLOPIDOGREL BISULFATE 75 MG TABLET PO SCH (08:43)
[2019-12-11] MEDS: HEPARIN SODIUM, PORCINE 5000 UNITS/1 ML VIAL SQ SCH ×2 (08:44→21:08)
[2019-12-11] MEDS: PROSOURCE / PROSTAT (PYXIS) 30 ML UDC GT SCH (08:46)
[2019-12-11 09:10] LABS: ABG BASE EXCESS 1.1 mmol/L; ABG OXYGEN SATURATION 93.9 % (92.0-98.5); ABG PCO2 48.1 mmHg (35.0-45.0); ABG PH 7.366 (7.350-7.450); ABG PO2 73.6 mmHg (75.0-100.0); AaDO2 446.3 mmHg; COHb 0.6 % (0.5-1.5); MetHb 0.3 % (0.0-1.5); O2Hb 93.1 % (94.0-97.0); PEEP,BG 14 cm H2O; SITE, ABG Right Radial; VT, ABG 500 mL
--- NOTE | 2019-12-11 09:30 | NUR ---
HASH SLINGER NOTE Increased Diprivan from 30mcg to 50 mcg per MD.
[2019-12-11] MEDS: DAKINS QUARTER STRENGTH (0.125%) 480 ML BOTTLE TOP SCH (17:28)
[2019-12-11] MEDS: TAMSULOSIN 0.4 MG CAP.SR.24H PO SCH (17:28)
--- NOTE | 2019-12-11 18:18 | NUR ---
MACHINE GROUP LEADER NOTE Lab called to inform that one of the blood culture is positive aerobic. But no microorganism in gram stain.
--- NOTE | 2019-12-11 18:43 | NUR ---
ICU RNCLOSING NOTE Patient in bed sedated mo signs of distress. On trach and vent setting as follows: AC 28 TV 500 dpi988% PEEP 14. Tolerating well. Sinus tachycardia 90-100s. PEG tube in place running Nepro @ 40ml/hr tolerating well. Thompson catheter in place draining cloudy yellow urine. Patient has CANDIDO PICC line running Propofol @ 50mcg and Fernie @ 1.5. Elevated extremities. Vital signs within normal limits. Kept clean and dry. Repositioned q2h. Safety measures reinforced. Bed locked and on lowest position. Siderails up x2. Will endorse to employment specialist/program manager nurse for clementine.
--- NOTE | 2019-12-11 20:00 | NUR ---
RT NOTE PT RECEIVED TRACHED ON MECHANICAL VENTILATION. SHILEY 8 DCT CUFFED TRACH IN PLACE. CUFF CHECKED VIA LICENSED CLINICAL PSYCHOLOGIST. SX DONE, TRACH SECURED AND PATENT. ORAL SX DONE. ALARMS ON AND AUDIBLE. VENT PLUGGED TO RED OUTLET. NO DISTRESS NOTED AT THIS TIME. WILL CONTINUE TO MONITOR T/O SHIFT. Addendum: 12/11/19 at 2001 by PRERNA CEBALLOS RT Amended: Links added.
[2019-12-11] MEDS: VANCOMYCIN 1 GM in IV D5W 250 ML IV SCH (20:34)
[2019-12-12] VITALS (120 sets, daily range): BP systolic 57–172; BP diastolic 25–83
--- NOTE | 2019-12-12 | NUR ---
Patient noted in narrow complex tachycardia from 105 to 150s. sliver lapper notified and aware. To monitor HR trend closely. BP labile. Titrating Neosynephrine for adequate SBP per order. GTube cardizem due, however, BP not favorable to medication administration at this time. Will hold until BP improves.
--- NOTE | 2019-12-12 01:30 | NUR ---
RT NOTE PT NOTED WITH LOW BP AND HIGH HR AT THIS TIME. INCREASED FIO2 TO 100% DUE TO DESATURATION. RN ARLEY AWARE. WILL CONTINUE TO MONITOR CLOSELY.
[2019-12-12] MEDS ORDERED: NOREPINEPHRINE 4 MG/4 ML AMPUL IV ONE (01:45)
[2019-12-12] MEDS: PROPOFOL 100 ML IV PRN ×5 (01:50→21:36)
[2019-12-12] MEDS: NOREPINEPHRINE 32 MG in IV NS 0.9% 218 ML IV PRN (01:58)
--- NOTE | 2019-12-12 02:30 | NUR ---
Sustained narrow complex tachycardia. Patient afebrile. BP low despite Neosynephrine titrated up to max dose. Covering SENIOR GOVERNMENT PROGRAM ANALYST notified. Digoxin IVP dose ordered. Rate 120s-170s.
[2019-12-12] MEDS ORDERED: DIGOXIN INJ 0.5 MG/2 ML AMPUL IV ONE (03:00)
--- NOTE | 2019-12-12 03:08 | NUR ---
RT NOTE JACOBY TUBBS AWARE OF HIGH HR. RN @ BEDSIDE AT THIS TIME.
[2019-12-12] MEDS: SEVELAMER CARBONATE 0.8 GM POWD.PACK GT SCH ×3 (03:36→16:49)
[2019-12-12] MEDS: PHENYLEPHRINE 100 MG in IV NS 0.9% 240 ML IV PRN ×2 (03:57→16:47)
[2019-12-12] MEDS ORDERED: AMIODARONE 450 MG in IV D5W 241 ML IV PRN (04:00)
[2019-12-12] MEDS ORDERED: AMIODARONE 150 MG in IV D5W 100 ML IV ONE (04:00)
--- NOTE | 2019-12-12 04:00 | NUR ---
Amiodarone per protocol ordered by PEWTER FINISHER for sustained tachycardia. Load to be given followed by gtt for correction of narrow complex tachycardia.
[2019-12-12] MEDS ORDERED: AMIODARONE 150 MG/3 ML VIAL IV ONE ×2 (04:04→04:05)
[2019-12-12] MEDS ORDERED: D5W IV PRN ×4 (05:00)
[2019-12-12] MEDS ORDERED: AMIODARONE IV PRN ×4 (05:00)
--- NOTE | 2019-12-12 05:15 | NUR ---
R pneumo per CXR radiology read, Glenn RFID SPECIALIST notified and aware.
--- NOTE | 2019-12-12 05:28 | NUR ---
MD Mikayla Ramirez at patient bedside for chest tube placement.
[2019-12-12 05:29] LABS: CARBON DIOXIDE 24 mmol/L (21-32); CHLORIDE 104 mmol/L (98-107); CREATININE 2.6 mg/dL (0.6-1.3); GLUCOSE 159 mg/dL (74-106); POTASSIUM 4.7 mmol/L (3.5-5.1); SODIUM SERUM 141 mmol/L (136-145); UREA NITROGEN, BLOOD 68 mg/dL (7-18)
--- NOTE | 2019-12-12 05:45 | NUR ---
RT NOTE MD SUMNER INSERTED CHEST TUBE DUE TO PNEUMO. NO DISTRESS NOTED. MONITORED CLOSELY T/O PROCEDURE.
[2019-12-12 05:47] LABS: CALCIUM, SERUM 8.7 mg/dL (8.5-10.1)
[2019-12-12] MEDS: DILTIAZEM HCL 30 MG TABLET NG SCH ×4 (06:00→16:48)
--- NOTE | 2019-12-12 06:55 | NUR ---
Patient BP improving s/p R chest tube placement. Atrium set to ordered suction. Initial output documented. Levophed held at this time due to favorable BP. Maintaining saturation well on FiO2 100% at this time. HR still labile. 100s-140s. 0600 Cardizem held for clarification by provider.
[2019-12-12] MEDS: PROSOURCE / PROSTAT (PYXIS) 30 ML UDC GT SCH (08:19)
[2019-12-12] MEDS: ZINC SULFATE 220 MG CAPSULE PO SCH (08:20)
[2019-12-12] MEDS: MEROPENEM 500 MG in IV NS 0.9% 50 ML IV SCH ×2 (08:20→21:36)
[2019-12-12] MEDS: HYDROXYCHLOROQUINE 200 MG TABLET PO SCH ×2 (08:20→16:51)
[2019-12-12] MEDS: PANTOPRAZOLE 40 MG/PACK PACK NG SCH (08:20)
[2019-12-12] MEDS: CLOPIDOGREL BISULFATE 75 MG TABLET PO SCH (08:20)
[2019-12-12] MEDS: HEPARIN SODIUM, PORCINE 5000 UNITS/1 ML VIAL SQ SCH ×2 (08:21→21:38)
--- NOTE | 2019-12-12 08:30 | NUR ---
RN NOTES RECEIVED PATIENT, OBTUNDED, WITH SPONTANEOUS EYE OPENING. WITH LABORED BREATHING, WITH USE OF ACCESSORY MUSCLE ON BREATHING. PATIENT TACHYPNEIC WITH RR ON THE 30-40S, AFIB ON THE MONITOR WITH HR FLUCTUATING TO 120-140 , PATIENT WITH ONGOING AMIODARONE DRIP AT 1 MG/MIN. CHEST TUBE ON THE R CHEST WALL, DRAINAGE SYSTEM WITH NOTED BUBBLING- WILL INFORM THE MD. DRAINAGE IS SEROSANGUINEOUS, 1690CC ON THE CONTAINER. ON CONTINUOUS SUCTION. EXTREMITIES ARE NOTED WITH EDEMA, BATISTA CATH IN PLACE, DRAINING TO DEBBIE COLORED URINE.HOB ELEVATED, FEEDING OFF AT THIS TIME, GASTRIC RESIDUAL IS MORE THAT 150CC, WILL RECHECK AND TURN ON FEEDING ABLE. SAFETY MEASURES OBSERVED AND MAINTAINED. CALL LIGHT PLACED WITHIN REACH. WILL CONTINUE TO MONITOR PATIENT ACCORDINGLY
[2019-12-12 09:01] LABS: BASOPHILS # (AUTO) 0.3 /CMM (0.0-0.2); BASOPHILS % (AUTO) 0.9 % (0.0-2.0); EOSINOPHILS % (AUTO) 0.5 % (0.0-6.0); HEMATOCRIT 37 % (39-51); HEMOGLOBIN 11.4 g/dL (13.5-17.5); LYMPHOCYTES % (AUTO) 3.2 % (20.0-44.0); MEAN CORPUSCULAR HGB CONC 31 g/dl (31.0-36.0); MEAN CORPUSCULAR VOLUME 97 fL (80-96); MONOCYTES # (AUTO) 1.4 /CMM (0.1-1.30); MONOCYTES % (AUTO) 4.1 % (2.0-12.0); NEUTROPHILS # (AUTO) 30.3 /CMM (1.8-8.9); NEUTROPHILS % (AUTO) 91.3 % (43.0-81.0); PLATELET COUNT (AUTO) 196 /CMM (150-450); RED BLOOD CELL COUNT(AUTO) 3.79 MIL/uL (4.5-6.0)
[2019-12-12 09:07] LABS: WHITE BLOOD COUNT (AUTO) 33.2 K/uL (4.3-11.0)
[2019-12-12 09:27] LABS: ABG BASE EXCESS -2.4 mmol/L; ABG OXYGEN SATURATION 83.5 % (92.0-98.5); ABG PCO2 41.3 mmHg (35.0-45.0); ABG PH 7.361 (7.350-7.450); ABG PO2 47.6 mmHg (75.0-100.0); AaDO2 624.1 mmHg; COHb 0.1 % (0.5-1.5); MetHb 0.2 % (0.0-1.5); O2Hb 83.2 % (94.0-97.0); SITE, ABG Left Radial; VENT MODE, BG AC 28 500 100% +14
[2019-12-12 09:33] LABS: LYMPHOCYTES % (MANUAL) 2 % (16-48); MONOCYTES % (MANUAL) 4 % (0-11.0); NEUTROPHILS % (MANUAL) 94 (42-76)
--- NOTE | 2019-12-12 10:00 | NUR ---
RT @0922 abg was drawn on pt. ph 7.36 co2 41 po2 47 hco2 22. spo2 at time of draw was 88, sao2 83. per dr murdock, increase peep to 16 and redraw abg in 2 hrs.
--- NOTE | 2019-12-12 11:00 | NUR ---
RN NOTES SPOKE TO EMILY SCHULTZ) WHO CLAIMED THAT HE IS THE RESPONSIBLE LIBERTARIAN FOR THE PATIENT DESPITE PATIENT HAVING A SON WHO IS AT [facility] AT THIS TIME. ALSO UPDATED EMILY ON THE PATIENT'S STATUS, SPECIFICALLY THAT PATIENT IS ON MAX DOSE OF LAMONTE, 0.5MCG OF LEVO AND VENTILATOR SETTING ON 100% FIO2. ATTEMPTED TO ENLIGHTEN THE SON ABOUT CHANGING CODE STATUS. BUT WAS NOT ABLE TO MADE DECISION AT THIS TIME AND IS REQUESTING TO TALK TO EITHER DR. BOOTHE OR DR. SANDERSON. DR. BOOTHE WAS PAGED, DR. SANDERSON INFORMED
[2019-12-12 12:46] LABS: ABG BASE EXCESS -4.7 mmol/L; ABG OXYGEN SATURATION 97.5 % (92.0-98.5); ABG PCO2 59.7 mmHg (35.0-45.0); ABG PH 7.215 (7.350-7.450); ABG PO2 111.6 mmHg (75.0-100.0); AaDO2 541.7 mmHg; COHb 0.1 % (0.5-1.5); MetHb 0.2 % (0.0-1.5); O2Hb 97.2 % (94.0-97.0); SITE, ABG Right Radial; VENT MODE, BG AC 28 500 100 +16
--- NOTE | 2019-12-12 13:02 | NUR ---
RT @1231 repeat abg was drawn. ph 7.21 co2 59 po2 [address] murdock, decrease di02 to 90% and peep to 14 and increase vt to 550. repeat abg @1530
[2019-12-12 16:25] LABS: ABG BASE EXCESS -4.4 mmol/L; ABG OXYGEN SATURATION 98.6 % (92.0-98.5); ABG PH 7.272 (7.350-7.450); ABG PO2 143.7 mmHg (75.0-100.0); AaDO2 446.8 mmHg; COHb 0.3 % (0.5-1.5); MetHb 0.5 % (0.0-1.5); O2Hb 97.8 % (94.0-97.0); SITE, ABG Right Radial; VENT MODE, BG AC 28 550 90% +14
[2019-12-12] MEDS: TAMSULOSIN 0.4 MG CAP.SR.24H PO SCH (16:51)
[2019-12-12] MEDS: DAKINS QUARTER STRENGTH (0.125%) 480 ML BOTTLE TOP SCH (16:52)
[2019-12-12] MEDS: IV NS 0.9% 250 ML IV PRN (18:50)
[2019-12-12] MEDS: VANCOMYCIN 1 GM in IV D5W 250 ML IV SCH (20:00)
--- NOTE | 2019-12-12 20:01 | NUR ---
PT RECEIVED TRACH SHILEY 8 ON MECHANICAL VENTILATION WITH NOTED SETTINGS . SX DONE, TRACH SECURED AND PATENT. ALARMS ON AND AUDIBLE. VENT PLUGGED TO RED OUTLET. NO DISTRESS NOTED AT THIS TIME. WILL CONTINUE TO MONITOR T/O SHIFT.
--- NOTE | 2019-12-12 20:56 | NUR ---
WOOD HEEL CEMENTER NOTE NOTIFIED PHARMACY VANCO TROUGH 24 AND SAID TO HOLD VANCO DOSE TONIGHT. NOTED AND CARRIED OUT.
[2019-12-12] MEDS ORDERED: NOREPINEPHRINE 8 MG in IV D5W 500 ML IV PRN (21:00)
[2019-12-13] VITALS (60 sets, daily range): BP systolic 65–178; BP diastolic 35–69
[2019-12-13] MEDS: PROPOFOL 100 ML IV PRN ×8 (00:04→22:52)
[2019-12-13] MEDS: PHENYLEPHRINE 100 MG in IV NS 0.9% 240 ML IV PRN ×4 (00:20→19:27)
[2019-12-13] MEDS: DILTIAZEM HCL 30 MG TABLET NG SCH ×4 (00:24→17:30)
[2019-12-13] MEDS: SEVELAMER CARBONATE 0.8 GM POWD.PACK GT SCH ×3 (01:17→17:32)
[2019-12-13 05:00] LABS: CALCIUM, SERUM 7.6 mg/dL (8.5-10.1); CARBON DIOXIDE 25 mmol/L (21-32); CHLORIDE 105 mmol/L (98-107); CREATININE 2.8 mg/dL (0.6-1.3); GLUCOSE 94 mg/dL (74-106); POTASSIUM 4.4 mmol/L (3.5-5.1); SODIUM SERUM 141 mmol/L (136-145); UREA NITROGEN, BLOOD 79 mg/dL (7-18)
[2019-12-13] MEDS: NEPRO 1,000 ML BOTTLE GT PRN (05:06)
--- NOTE | 2019-12-13 07:20 | NUR ---
MACHINE OPERATOR ASSISTANT NOTES PATIENT IN BED SEDATED. SINUS RHYTHM. NO SOB OR DISCOMFORT AT THIS TIME. WILL FOLLOW UP.
[2019-12-13] MEDS: MEROPENEM 500 MG in IV NS 0.9% 50 ML IV SCH ×2 (08:47→20:08)
[2019-12-13] MEDS: CLOPIDOGREL BISULFATE 75 MG TABLET PO SCH (08:48)
[2019-12-13] MEDS: PANTOPRAZOLE 40 MG/PACK PACK NG SCH (08:48)
[2019-12-13] MEDS: ZINC SULFATE 220 MG CAPSULE PO SCH (08:48)
[2019-12-13] MEDS: HEPARIN SODIUM, PORCINE 5000 UNITS/1 ML VIAL SQ SCH ×2 (08:49→20:09)
[2019-12-13] MEDS: PROSOURCE / PROSTAT (PYXIS) 30 ML UDC GT SCH (08:50)
[2019-12-13] MEDS: NOREPINEPHRINE 8 MG in IV NS 0.9% 242 ML IV PRN (12:52)
[2019-12-13] MEDS: TAMSULOSIN 0.4 MG CAP.SR.24H PO SCH (17:29)
[2019-12-13] MEDS: DAKINS QUARTER STRENGTH (0.125%) 480 ML BOTTLE TOP SCH (17:30)
--- NOTE | 2019-12-13 18:50 | NUR ---
TRIGONOMETRY TEACHER NOTES SEDATION VACATION NOT PERFORMED DUE TO CRITICAL CONDITION.
--- NOTE | 2019-12-13 19:42 | NUR ---
MANAGER MARKETING COMMUNICATIONS NOTES PATIENT SEDATED. NO CHANGE OF CONDITION. ALL NEEDS ATTENDED. NO SOB OR DISCOMFORT AT THIS TIME. REPORT GIVEN TO SCLEROSCOPE TESTER NURSE.
[2019-12-13] MEDS: ACETAMINOPHEN 650 MG/20.3 ML UDC NG PRN (21:34)
--- NOTE | 2019-12-13 22:00 | NUR ---
COMPUTER NETWORK SPECIALIST NOTES PATIENT NOTED WITH BMX1, PARTIALLY LIQUID, PARTIALLY MUSHY, TOO FORMED TO SEND FOR CDIFF TESTING. FULL BED BATH RENDERED, PATIENT TOLERATED WELL. WILL CONTINUE TO MONITOR
[2019-12-13] MEDS: IV NS 0.9% 250 ML IV PRN (22:52)
[2019-12-14] VITALS (97 sets, daily range): BP systolic 72–248; BP diastolic 31–77
[2019-12-14] MEDS: DILTIAZEM HCL 30 MG TABLET NG SCH ×5 (00:14→23:26)
[2019-12-14] MEDS: PHENYLEPHRINE 100 MG in IV NS 0.9% 240 ML IV PRN ×4 (01:50→21:14)
[2019-12-14] MEDS: SEVELAMER CARBONATE 0.8 GM POWD.PACK GT SCH ×3 (02:17→17:21)
[2019-12-14] MEDS: PROPOFOL 100 ML IV PRN ×8 (02:18→21:45)
[2019-12-14] MEDS: NOREPINEPHRINE 8 MG in IV NS 0.9% 242 ML IV PRN ×3 (02:55→21:45)
--- NOTE | 2019-12-14 03:26 | NUR ---
GENERATOR SWITCHBOARD OPERATOR NOTES PATIENT NOTED WITH DIARRHEA, LIQUID BROWN. GELY LAPELER NOTIFIED AND MADE AWARE THAT PATIENT HAS A SACRAL WOUND. LAPELER GELY WITH NEW ORDER TO INSERT RECTAL TUBE. WILL INSERT RECTAL TUBE AND CLOSELY MONITOR THE PATIENT
[2019-12-14 05:19] LABS: CALCIUM, SERUM 7.6 mg/dL (8.5-10.1); CARBON DIOXIDE 22 mmol/L (21-32); CHLORIDE 104 mmol/L (98-107); CREATININE 3.1 mg/dL (0.6-1.3); GLUCOSE 133 mg/dL (74-106); POTASSIUM 4.1 mmol/L (3.5-5.1); SODIUM SERUM 139 mmol/L (136-145)
[2019-12-14 05:26] LABS: UREA NITROGEN, BLOOD 86 mg/dL (7-18)
--- NOTE | 2019-12-14 07:00 | NUR ---
GUM PULLER CLOSING NOTES PATIENT RESTING IN BED, APPEARS COMFORTABLE. REMAINS ON MECHANICAL VENT VIA TRACH, NEOPSYNEPHRINE REMAINS @ 3MCG/KG/MIN, LEVOPHED TITRATED TO 0.2MCG/KG/MIN. WILL ENDORSE THE PATIENT TO THE AM SHIFT NURSE FOR HAO
--- NOTE | 2019-12-14 07:10 | NUR ---
SHOE STITCHER ODD NOTES RECEIVED PATIENT SEDATED , RESPONSIVE TO DEEP PAIN STIMULI , NOT IN ACUTE DISTRESS , SPO2 F 95% VIA MECHANICAL VENT SETTINGS ORDERED ,TRACH OF SHILEY # [address] CLEAN DRY AND INTACT , SR 98 WITH BBB ON BEDSIDE MONITOR , FC DRAINING VIA GRAVITY , FLEXISEAL IN PLACE DRAIING VIA GRAVITY , GT PATENT AND INTACT WITH NEPHRO @40ML/HR TOLERATING WELL , CANDIDO PICC LINE WITH NEOSYNEPRINE @3MCG/KG/MIN , LEVOPHED @0.2MCG/KG/MIN , DIPRIVAN @60MCG/KG/MIN INFUSING WELL , R FEM HD CATH IN PLACE , R FOOT #20 SL , ALL NEEDS ATTENDED , WILL CONTINUE TO MONITOR
[2019-12-14 07:34] LABS: BASOPHILS # (AUTO) 0.1 /CMM (0.0-0.2); BASOPHILS % (AUTO) 0.3 % (0.0-2.0); EOSINOPHILS % (AUTO) 0.6 % (0.0-6.0); HEMATOCRIT 24 % (39-51); HEMOGLOBIN 7.5 g/dL (13.5-17.5); LYMPHOCYTES # (AUTO) 0.5 /CMM (0.8-4.8); LYMPHOCYTES % (AUTO) 2.4 % (20.0-44.0); MEAN CORPUSCULAR HGB CONC 31 g/dl (31.0-36.0); MEAN CORPUSCULAR VOLUME 96 fL (80-96); MONOCYTES # (AUTO) 0.9 /CMM (0.1-1.30); MONOCYTES % (AUTO) 4.4 % (2.0-12.0); NEUTROPHILS # (AUTO) 19.3 /CMM (1.8-8.9); NEUTROPHILS % (AUTO) 92.3 % (43.0-81.0); PLATELET COUNT (AUTO) 147 /CMM (150-450); RED BLOOD CELL COUNT(AUTO) 2.51 MIL/uL (4.5-6.0); WHITE BLOOD COUNT (AUTO) 20.9 K/uL (4.3-11.0)
--- NOTE | 2019-12-14 08:00 | NUR ---
CIRCULATION TENDER NOTES HEPARIN 500,U AND PLAVIX 75MG HELD , PT WILL UNDERGO CHEST TUBE RE INSERTION . MD BRAN
[2019-12-14] MEDS: PROSOURCE / PROSTAT (PYXIS) 30 ML UDC GT SCH (08:12)
[2019-12-14] MEDS: ZINC SULFATE 220 MG CAPSULE PO SCH (08:12)
[2019-12-14] MEDS: MEROPENEM 500 MG in IV NS 0.9% 50 ML IV SCH ×2 (08:12→20:11)
[2019-12-14] MEDS: PANTOPRAZOLE 40 MG/PACK PACK NG SCH (08:12)
--- NOTE | 2019-12-14 08:15 | NUR ---
AIRPORT OPERATIONS DUTY MANAGER NOTES SEEN AND EVALUATED BY DR BOOTHE , DISCUSSED LABS , ON LEVO @ 0.2MCG/KG/MIN , LAMONTE @3MCG/KG/MIN , AFEBRILE , SEDATED , DISCUSSED CHEST XRAY AND VENT SETTINGS , TOLERATING GTF AFEBRILE , MD AWARE . NO NEW ORDERS RECEIVED
--- NOTE | 2019-12-14 08:30 | NUR ---
TRESTLEMAN NOTES CHEST TUBE PLACED BY DR MINER , ATTACHED TO ATRIUM WATER SEAL WITH OCCASIONAL BUBBLING , CONNECTED TO -20MMHG TO WALL SUCTION , DRAINING WITH SEROSANGUINEOUS OUTPUT 20ML IN AMOUNT , STAT CHEST XRAY ORDERED , VS STABLE NO DISTRESS , CLAMP AT THE BEDSIDE , WILL CONTINUE TO MONITOR
[2019-12-14] MEDS: HEPARIN SODIUM, PORCINE 5000 UNITS/1 ML VIAL SQ SCH ×2 (08:44→19:24)
[2019-12-14] MEDS: CLOPIDOGREL BISULFATE 75 MG TABLET PO SCH (08:44)
[2019-12-14 09:01] LABS: ABG BASE EXCESS -6.7 mmol/L; ABG OXYGEN SATURATION 96.4 % (92.0-98.5); ABG PCO2 43.9 mmHg (35.0-45.0); ABG PH 7.273 (7.350-7.450); AaDO2 397.1 mmHg; COHb 0.1 % (0.5-1.5); MetHb 0.3 % (0.0-1.5); SITE, ABG Left Radial; VENT MODE, BG AC 28 550 75% +12
--- NOTE | 2019-12-14 10:00 | NUR ---
LIFE INSURANCE ACTUARY NOTES UNABLE TO DO SEDATION VACATION , PT UNSTABLE , DR SANTIAGO AWARE .
--- NOTE | 2019-12-14 16:20 | NUR ---
CANAL SUPERINTENDENT NOTES SEEN AND EVALUATED BY MARCELLA , DISCUSSED LABS , AFEBRILE , PT ON NEOSYNEPRINE @3MCG/KG/MIN , LEVOPHED @0.15MCG/KG/MIN , AFEBRILE , CT RE INSERTED TODAY , PT NOTED TO HAVE DIARRHEA , ON FLEXISEAL , PRODUCTION DIRECTOR AWARE , ORDERED C DIFF STOOL .
--- NOTE | 2019-12-14 16:35 | NUR ---
WOOD FURNITURE ASSEMBLER NOTE C DIFF SAMPLE SCORE DONE , RESULTS IS 4 , NOTIFIED AMBER PHARMACIST FOR REVIEW .
[2019-12-14] MEDS: DAKINS QUARTER STRENGTH (0.125%) 480 ML BOTTLE TOP SCH (17:21)
[2019-12-14] MEDS: TAMSULOSIN 0.4 MG CAP.SR.24H PO SCH (17:21)
--- NOTE | 2019-12-14 17:43 | NUR ---
DUST PULLER NOTES SPOKE WITH STEPHANIE PARMAR , DISCUSSED PT ON FLEXISEAL WITH DIARRHEA , NOTED WITH WATERY BROWN STOOL , C DIFF REQUISITION DONE , PER STEPHANIE HOUSE TO SEND STOOL FOR C DIFF , ISOLATION PREC OBSERVED . STOOL COLLECTED SENT TO LAB
[2019-12-14] MEDS: METRONIDAZOLE 500MG/ NS 100ML 500 MG in PREMIX 1 EA IV SCH (17:58)
--- NOTE | 2019-12-14 19:30 | NUR ---
INSPECTOR AND UNLOADER INITIAL SHIFT NOTES RECEIVED PATIENT IN BED, SEDATED ON DIPRIVAN, ON MECHANICAL VENTILATION VIA TRACH, SETTINGS ORDERED. CANDIDO PICC PATENT AND INTACT, RUNNING LEVOPHED DRIP @ 0.12 MCG/KG/MIN, NEOSYNEPHRINE @ 3MCG/KG/MIN, AND DIPRIVAN DRIP @ 60MCG/KG/MIN. RIGHT SIDED CHEST TUBE TO -20CM H20 SUCTION, NOTED WITH AIR LEAK, CONTINUOUS BUBBLING, SEROUS OUTPUT. BATISTA PATENT AND INTACT, DRAINING MINIMAL YELLOW URINE VIA GRAVITY. GT PATENT AND INTACT, TOLERATING TUBE FEEDS WELL. WILL MONITOR PATIENT CLOSELY
[2019-12-14] MEDS: ACETAMINOPHEN 650 MG/20.3 ML UDC NG PRN (20:11)
[2019-12-14] MEDS ORDERED: VANCOMYCIN 0.75 GM in IV D5W 250 ML IV SCH (21:00)
[2019-12-15] VITALS (98 sets, daily range): BP systolic 59–143; BP diastolic 32–84
--- NOTE | 2019-12-15 | NUR ---
SHEET WRITER NOTES FULL BEDBATH RENDERED, PATIENT TOLERATED WELL. CHEST TUBE DRESSING SOILED, CHANGED, CONTINUES WITH LEAK, CONNECTED TO -20CM H20 SUCTION
[2019-12-15] MEDS: METRONIDAZOLE 500MG/ NS 100ML 500 MG in PREMIX 1 EA IV SCH ×3 (01:30→17:12)
[2019-12-15] MEDS: SEVELAMER CARBONATE 0.8 GM POWD.PACK GT SCH ×3 (01:31→17:12)
[2019-12-15] MEDS: PROPOFOL 100 ML IV PRN ×8 (01:32→20:55)
[2019-12-15] MEDS: PHENYLEPHRINE 100 MG in IV NS 0.9% 240 ML IV PRN ×4 (04:18→21:43)
[2019-12-15 04:28] LABS: CALCIUM, SERUM 7.8 mg/dL (8.5-10.1); CARBON DIOXIDE 21 mmol/L (21-32); CHLORIDE 105 mmol/L (98-107); CREATININE 3.4 mg/dL (0.6-1.3); GLUCOSE 106 mg/dL (74-106); POTASSIUM 4.1 mmol/L (3.5-5.1); SODIUM SERUM 138 mmol/L (136-145)
[2019-12-15 04:29] LABS: UREA NITROGEN, BLOOD 86 mg/dL (7-18)
[2019-12-15] MEDS: DILTIAZEM HCL 30 MG TABLET NG SCH ×3 (05:40→17:13)
--- NOTE | 2019-12-15 06:00 | NUR ---
FULL TIME STAFF INTERPRETER NOTES - CHEST TUBE OUTPUT TOTAL CHEST TUBE OUTPUT = 180 ML OF SEROUS FLUID. CHEST TUBE CONTINUES WITH LEAK, CONNECTED TO -20 MC H2O SUCTION
--- NOTE | 2019-12-15 06:40 | NUR ---
GARAGE LABORER NOTES RECEIVED CALL FROM RADIOLOGY. PER RADIOLOGIST, "RIGHT SIDE PNEUMOTHORAX IS MODERATELY INCREASED IN SIZE WHEN COMPARED TO PREVIOUS EXAM." OTHERWISE, NO CHANGE IN PATIENT'S PRESENTATION. GELY LINUX SUPPORT ENGINEER NOTIFIED. NO NEW ORDERS RECEIVED AT THIS TIME. PER GELY, HE WILL PASS THIS INFORMATION ALONG TO DR GARCIA. WILL CONTINUE TO CLOSELY MONITOR
[2019-12-15] MEDS: NOREPINEPHRINE 8 MG in IV NS 0.9% 242 ML IV PRN ×3 (06:48→20:48)
--- NOTE | 2019-12-15 07:31 | NUR ---
PACKAGE CAR DRIVER NOTES RECEIVED PATIENT SEDATED , RESPONSIVE TO DEEP PAIN STIMULI , NOT IN ACUTE DISTRESS , SPO2 oF 95% VIA MECHANICAL VENT SETTINGS ORDERED ,TRACH OF SHILEY # [address] CLEAN DRY AND INTACT , RIGHT CHEST TUBE ATTACHED TO -20MMHG SUCTION DRAINING WITH SEROUS FLUID NOTED WITH LEAK , SR 90 WITH BBB ON BEDSIDE MONITOR , FC DRAINING VIA GRAVITY , FLEXI SEAL IN PLACE DRAINING VIA GRAVITY , GT PATENT AND INTACT WITH NEPHRO @40ML/HR TOLERATING WELL , CANDIDO PICC LINE WITH NEOSYNEPRINE @3MCG/KG/MIN , LEVOPHED @0.22MCG/KG/MIN , DIPRIVAN @60MCG/KG/MIN INFUSING WELL , R FEM HD CATH IN PLACE , R FOOT #20 SL , ALL NEEDS ATTENDED , WILL CONTINUE TO MONITOR
[2019-12-15 08:28] LABS: ABG BASE EXCESS -9.7 mmol/L; ABG OXYGEN SATURATION 95.6 % (92.0-98.5); ABG PH 7.238 (7.350-7.450); AaDO2 404.2 mmHg; COHb 0.4 % (0.5-1.5); MetHb 0.2 % (0.0-1.5); PEEP,BG 12 cm H2O; SITE, ABG Right Radial; VT, ABG 550 mL
[2019-12-15] MEDS: PANTOPRAZOLE 40 MG/PACK PACK NG SCH (08:34)
[2019-12-15] MEDS: ZINC SULFATE 220 MG CAPSULE PO SCH (08:34)
[2019-12-15] MEDS: MEROPENEM 500 MG in IV NS 0.9% 50 ML IV SCH ×2 (08:35→20:58)
[2019-12-15] MEDS: HEPARIN SODIUM, PORCINE 5000 UNITS/1 ML VIAL SQ SCH ×2 (08:35→21:00)
[2019-12-15] MEDS: CLOPIDOGREL BISULFATE 75 MG TABLET PO SCH (08:35)
[2019-12-15] MEDS: PROSOURCE / PROSTAT (PYXIS) 30 ML UDC GT SCH (08:35)
--- NOTE | 2019-12-15 09:00 | NUR ---
BIOLOGY ADJUNCT INSTRUCTOR NOTES UNABLE TO DO SEDATION VACATION , PT UNSTABLE , DR SANDERSON AWARE
--- NOTE | 2019-12-15 11:08 | NUR ---
LARD BLEACHER NOTES SEEN AND EVALUATED BY DR BOOTHE , DISCUSSED LABS , CHEST XRAY RESULT , ON LAMONTE @3MCG/KG/MIN , LEVO @ 0.16MCG/KG/MIN TO KEEP SBP ABOVE 90MMHG , DIARRHEA WITH FLEXI SEAL , STOOL C DIFF PENDING , TOLERATING GT FEEDING , NO CBC ORDERED AFTER 1 UNIT PRBC , AFEBRILE , DISCUSSED CURRENT VENT SETTINGS , CHEST TUBE ATTACHED TO -20MMG SUCTION NOTED WITH AIR LEAK WITH CONTINUOUS BUBBLING DRAINING WITH SEROUS FLUID , PER MD HOUSE TO CHECK CBC TODAY , ORDER CARRIED OUT
--- NOTE | 2019-12-15 11:11 | NUR ---
LEAD GAME DESIGNER NOTES SEEN AND EVALUATED BY DR SANDERSON , DISCUSSED LABS , CHEST XRAY RESULTS , CURRENT VET SETTINGS , ABG RESULT, CHEST TUBE NOTED WITH AIR LEAK CONTINUOUS BUBBLING DRAINING VIA -20MMHG SUCTION WITH SEROUS FLUID , ON LEVO @ 0.16MCG/KG/MIN , LAMONTE @3MCG/KG/MIN , AWARE
[2019-12-15] MEDS: IV NS 0.9% 1,000 ML IV PRN (12:46)
[2019-12-15 13:11] LABS: BASOPHILS # (AUTO) 0.1 /CMM (0.0-0.2); BASOPHILS % (AUTO) 0.5 % (0.0-2.0); EOSINOPHILS % (AUTO) 0.2 % (0.0-6.0); HEMATOCRIT 33 % (39-51); HEMOGLOBIN 10.1 g/dL (13.5-17.5); LYMPHOCYTES # (AUTO) 0.4 /CMM (0.8-4.8); LYMPHOCYTES % (AUTO) 1.5 % (20.0-44.0); MEAN CORPUSCULAR HGB CONC 30 g/dl (31.0-36.0); MEAN CORPUSCULAR VOLUME 96 fL (80-96); MONOCYTES # (AUTO) 0.1 /CMM (0.1-1.30); MONOCYTES % (AUTO) 0.3 % (2.0-12.0); NEUTROPHILS # (AUTO) 26.5 /CMM (1.8-8.9); NEUTROPHILS % (AUTO) 97.5 % (43.0-81.0); PLATELET COUNT (AUTO) 131 /CMM (150-450); RED BLOOD CELL COUNT(AUTO) 3.47 MIL/uL (4.5-6.0); WHITE BLOOD COUNT (AUTO) 27.1 K/uL (4.3-11.0)
[2019-12-15 13:25] LABS: BAND % (MANUAL) 7 % (0.0-5.0); LYMPHOCYTES % (MANUAL) 3 % (16-48); MONOCYTES % (MANUAL) 1 % (0-11.0); NEUTROPHILS % (MANUAL) 89 (42-76)
--- NOTE | 2019-12-15 14:20 | NUR ---
VENT CHANGES BELOW ORDER: PEEP + 10 Addendum: 12/15/19 at 1421 by AMY COLINDRES RT Amended: Links added.
[2019-12-15 15:24] LABS: ABG BASE EXCESS -11.9 mmol/L; ABG OXYGEN SATURATION 94.5 % (92.0-98.5); ABG PCO2 47.4 mmHg (35.0-45.0); ABG PH 7.157 (7.350-7.450); ABG PO2 84.1 mmHg (75.0-100.0); AaDO2 400.3 mmHg; MetHb 0.4 % (0.0-1.5); O2Hb 94.1 % (94.0-97.0); PEEP,BG 10 cm H2O; SITE, ABG Right Radial; VT, ABG 550 mL
--- NOTE | 2019-12-15 15:31 | NUR ---
TIDAL VOLUME INCREASED FROM 550 ML TO [address] SANDERSON. Addendum: 12/15/19 at 1531 by AMY COLINDRES RT Amended: Links added.
--- NOTE | 2019-12-15 15:31 | NUR ---
AMALGAMATOR NOTES RT AMY RELAYED ABG RESULTS TO DR SANDERSON , ORDER TO CHANGE TV TO 600 , AND REPEAT ABG AFTER 2 HOURS , ORDERS CARRIED OUT
[2019-12-15 16:53] LABS: ABG BASE EXCESS -10.4 mmol/L; ABG OXYGEN SATURATION 93.6 % (92.0-98.5); ABG PCO2 44.8 mmHg (35.0-45.0); ABG PO2 76.3 mmHg (75.0-100.0); AaDO2 410.9 mmHg; COHb 0.3 % (0.5-1.5); MetHb 0.5 % (0.0-1.5); O2Hb 92.9 % (94.0-97.0); PEEP,BG 10 cm H2O; SITE, ABG Right Radial; VT, ABG 600 mL
--- NOTE | 2019-12-15 17:02 | NUR ---
RATE INCREASED FROM [address] SANDERSON. Addendum: 12/15/19 at 1703 by AMY COLINDRES RT Amended: Links added.
[2019-12-15] MEDS: TAMSULOSIN 0.4 MG CAP.SR.24H PO SCH (17:12)
[2019-12-15] MEDS: DAKINS QUARTER STRENGTH (0.125%) 480 ML BOTTLE TOP SCH (17:13)
--- NOTE | 2019-12-15 17:22 | NUR ---
STRADDLE BUG DRIVER NOTES CHEST XRAY RESULT RELAYED , AWARE , ORDER REPEAT CHEST XRAY IN AM . ORDER CARRIED OUT
[2019-12-15] MEDS: NEPRO 1,000 ML BOTTLE GT PRN (18:15)
[2019-12-15] MEDS: Z GUARD REMEDY 2 OZ OINT TP PRN (18:15)
--- NOTE | 2019-12-15 19:30 | NUR ---
FIELD BROOMER INITIAL SHIFT NOTES RECEIVED PATIENT IN BED, SEDATED ON DIPRIVAN, ON MECHANICAL VENTILATION VIA TRACH, SETTINGS ORDERED. CANDIDO PICC PATENT AND INTACT, RUNNING LEVOPHED DRIP @ 0.2 MCG/KG/MIN, NEOSYNEPHRINE @ 3MCG/KG/MIN, AND DIPRIVAN DRIP @ 60MCG/KG/MIN. RIGHT SIDED CHEST TUBE TO -20CM H20 SUCTION, NOTED WITH AIR LEAK, CONTINUOUS BUBBLING, SEROUS OUTPUT. BATISTA PATENT AND INTACT, DRAINING MINIMAL YELLOW URINE VIA GRAVITY. GT PATENT AND INTACT, TOLERATING TUBE FEEDS WELL. WILL MONITOR PATIENT CLOSELY
--- NOTE | 2019-12-15 22:00 | NUR ---
SPOON MAKER NOTES RECTAL TUBE NOTED TO BE LEAKING, BALLOON DEFLATED, TUBE ADJUSTED THEN REINFLATED. TUBE NO LONGER LEAKNG, DRAINING LIQUID BROWN/FOAMY STOOL VIA GRAVITY. FULL BED BATH RENDERED, WILL MONITOR CLOSELY
[2019-12-16] VITALS (88 sets, daily range): BP systolic 75–169; BP diastolic 29–61
[2019-12-16] MEDS: DILTIAZEM HCL 30 MG TABLET NG SCH ×4 (00:43→18:14)
[2019-12-16] MEDS: SEVELAMER CARBONATE 0.8 GM POWD.PACK GT SCH ×3 (01:43→18:13)
[2019-12-16] MEDS: METRONIDAZOLE 500MG/ NS 100ML 500 MG in PREMIX 1 EA IV SCH ×3 (01:44→17:30)
[2019-12-16] MEDS: IV NS 0.9% 1,000 ML IV PRN (02:31)
--- NOTE | 2019-12-16 04:00 | NUR ---
ENGINEERING ADMINISTRATOR NOTES RECTAL TUBE AGAIN NOTED TO BE LEAKING. RECTAL TUBE REMOVED, IMMEDIATELY NOTED WITH SMALL/MODERATE SIZED FORMED BM CHUNKS, FOLLOWED BY LIQUID BROWN STOOL. RECTAL TUBE KEPT DC'D. WILL MONITOR CLOSELY
[2019-12-16] MEDS: NOREPINEPHRINE 8 MG in IV NS 0.9% 242 ML IV PRN ×6 (04:11→23:41)
[2019-12-16] MEDS: PHENYLEPHRINE 100 MG in IV NS 0.9% 240 ML IV PRN ×4 (04:12→23:43)
[2019-12-16 04:31] LABS: BASOPHILS # (AUTO) 0.1 /CMM (0.0-0.2); BASOPHILS % (AUTO) 0.3 % (0.0-2.0); EOSINOPHILS % (AUTO) 0.4 % (0.0-6.0); HEMATOCRIT 29 % (39-51); HEMOGLOBIN 9.3 g/dL (13.5-17.5); LYMPHOCYTES # (AUTO) 0.6 /CMM (0.8-4.8); LYMPHOCYTES % (AUTO) 2.2 % (20.0-44.0); MEAN CORPUSCULAR HGB CONC 32 g/dl (31.0-36.0); MEAN CORPUSCULAR VOLUME 94 fL (80-96); MONOCYTES # (AUTO) 0.8 /CMM (0.1-1.30); MONOCYTES % (AUTO) 2.9 % (2.0-12.0); NEUTROPHILS # (AUTO) 25.2 /CMM (1.8-8.9); NEUTROPHILS % (AUTO) 94.2 % (43.0-81.0); PLATELET COUNT (AUTO) 103 /CMM (150-450); RED BLOOD CELL COUNT(AUTO) 3.08 MIL/uL (4.5-6.0); WHITE BLOOD COUNT (AUTO) 26.7 K/uL (4.3-11.0)
[2019-12-16 04:49] LABS: CALCIUM, SERUM 7.3 mg/dL (8.5-10.1); CARBON DIOXIDE 18 mmol/L (21-32); CHLORIDE 105 mmol/L (98-107); CREATININE 3.5 mg/dL (0.6-1.3); GLUCOSE 127 mg/dL (74-106); MAGNESIUM 1.5 mg/dL (1.8-2.4); PHOSPHORUS 6.9 mg/dL (2.5-4.9); POTASSIUM 3.5 mmol/L (3.5-5.1); SODIUM SERUM 138 mmol/L (136-145)
[2019-12-16 04:51] LABS: UREA NITROGEN, BLOOD 93 mg/dL (7-18)
--- NOTE | 2019-12-16 06:00 | NUR ---
WATER QUALITY ANALYST NOTES PATIENT RESTING IN BED, APPEARS COMFORTABLE. CHEST TUBE REMAINS CONNECTED TO -20CM H20 SUCTION, WITH NOTED AIR LEAK, CONTINUOUS BUBBLING. TOTAL URINE OUTPUT FOR SHIFT = 150ML OF SEROUS FLUID. DRESSING CHANGED EARLIER IN SHIFT, PATIENT TOLERATED WELL.
[2019-12-16] MEDS: PROPOFOL 100 ML IV PRN ×6 (06:15→23:16)
--- NOTE | 2019-12-16 07:00 | NUR ---
BRANCH OFFICE MANAGER NOTES PATIENT RESTING IN BED, APPEARS COMFORTABLE. VENT SETTING REMAIN UNCHANGED, NO CHANGE IN PATIENT'S PRESENTATION. REMAINS ON MECHANICAL VENTILATION, CHEST TUBE TO -20CM H20 SUCTION. WILL ENDORSE THE ATIENT TO THE AM SHFT NURSE FOR CONTINUITY OF CARE
[2019-12-16 08:25] LABS: ABG BASE EXCESS -11.2 mmol/L; ABG OXYGEN SATURATION 96.5 % (92.0-98.5); ABG PCO2 35.2 mmHg (35.0-45.0); ABG PO2 93.4 mmHg (75.0-100.0); COHb 0.4 % (0.5-1.5); MetHb 0.3 % (0.0-1.5); O2Hb 95.8 % (94.0-97.0); SITE, ABG A-Line; VENT MODE, BG AC 32 600 75% +10
[2019-12-16] MEDS: MEROPENEM 500 MG in IV NS 0.9% 50 ML IV SCH ×2 (08:34→21:44)
[2019-12-16] MEDS: HEPARIN SODIUM, PORCINE 5000 UNITS/1 ML VIAL SQ SCH (09:00)
[2019-12-16] MEDS: PROSOURCE / PROSTAT (PYXIS) 30 ML UDC GT SCH (09:00)
[2019-12-16] MEDS: ZINC SULFATE 220 MG CAPSULE PO SCH (09:09)
[2019-12-16] MEDS: PANTOPRAZOLE 40 MG/PACK PACK NG SCH (09:10)
[2019-12-16] MEDS: CLOPIDOGREL BISULFATE 75 MG TABLET PO SCH (09:10)
[2019-12-16] MEDS ORDERED: LIDOCAINE HCL/MPF 1% 30 ML VIAL IJ ONE (15:05)
[2019-12-16] MEDS ORDERED: LIDOCAINE 1% INJ 50 ML MDV IJ ONE (15:30)
--- NOTE | 2019-12-16 15:58 | NUR ---
Chest Tube Note s/p chest tube insertion 12/15 @1530 by Tomy Herndon. Upper right axillary area. Connected to suction. No bubbling noted. Immediate output noted as 100mL serosanguineous fluid with about more on bedsheets. Stat CXR ordered, read by Tomy Herndon and Dr. Gayle -> in place. Vital signs stable, see documentation, will continue to monitor The other chest tube (placed 12/13) is in the mid right axillary area. Noted to be bubbling. Dr. Gayle aware.
[2019-12-16] MEDS: DAKINS QUARTER STRENGTH (0.125%) 480 ML BOTTLE TOP SCH (18:00)
[2019-12-16] MEDS: TAMSULOSIN 0.4 MG CAP.SR.24H PO SCH (18:13)
[2019-12-16] MEDS: NEPRO 1,000 ML BOTTLE GT PRN (18:16)
--- NOTE | 2019-12-16 19:00 | NUR ---
Received patient with tracheostomy to the ventilator on AC mode,sedated with Propofol,no movement noted on any extremity but + cough when suctioned,slight gag,+ corneals. Breathing with deep inspiratory effort ,PEEP=8,rate=32. saturating in the low 90's. With 2 chest tubes (1 right lateral lower ,draining light greenish/ straw colored drainage,1 right lateral upper draining serosanguineous drainage.) both dressing dry and intact,all tubes patent both to At[facility] drainage collection to suction. PICC line via CANDIDO , on Levophed drip and Neosynephrine drip for BP support. G tube with on going feeding (Nepro 40 ml/hr),Aspiration Precaution implemented.Comfort care done,oral care rendered.
[2019-12-17] VITALS (97 sets, daily range): BP systolic 54–125; BP diastolic 30–71
--- NOTE | 2019-12-17 | NUR ---
Stays unchanged, sedated, with deep inspiratory effort,saturating 92-93%, Still on Levophed and Neosynephrine drip.Chest tube both intact ,still with air leak of upper chest tube,all tubings patent,to water seal- to suction.
[2019-12-17] MEDS: SEVELAMER CARBONATE 0.8 GM POWD.PACK GT SCH ×3 (01:45→18:17)
[2019-12-17] MEDS: METRONIDAZOLE 500MG/ NS 100ML 500 MG in PREMIX 1 EA IV SCH ×3 (01:45→18:00)
[2019-12-17] MEDS: DILTIAZEM HCL 30 MG TABLET NG SCH ×5 (01:49→23:21)
[2019-12-17] MEDS: PROPOFOL 100 ML IV PRN ×6 (03:15→21:55)
[2019-12-17] MEDS ORDERED: NOREPINEPHRINE 8MG/250ML RTU 250 ML IV ONE (03:45)
[2019-12-17] MEDS: NOREPINEPHRINE 8 MG in IV NS 0.9% 242 ML IV PRN ×2 (03:48→07:48)
--- NOTE | 2019-12-17 04:00 | NUR ---
Episode of desaturation as low as 85% , tachypneic RR=38-40 with GERMAIN= 50's ,after AM bath and sacral dressing change with turning/moving and flat position.Suctioned no secretions noted, hyperoxygenated ,RT at bedside, titrated FIO2 to desired saturation,now patient on 90 % FIO2.
[2019-12-17 04:29] LABS: BASOPHILS # (AUTO) 0.1 /CMM (0.0-0.2); BASOPHILS % (AUTO) 0.4 % (0.0-2.0); EOSINOPHILS % (AUTO) 0.1 % (0.0-6.0); HEMATOCRIT 31 % (39-51); HEMOGLOBIN 9.8 g/dL (13.5-17.5); LYMPHOCYTES # (AUTO) 0.4 /CMM (0.8-4.8); LYMPHOCYTES % (AUTO) 1.2 % (20.0-44.0); MEAN CORPUSCULAR HGB CONC 31 g/dl (31.0-36.0); MEAN CORPUSCULAR VOLUME 95 fL (80-96); MONOCYTES # (AUTO) 0.8 /CMM (0.1-1.30); MONOCYTES % (AUTO) 2.5 % (2.0-12.0); NEUTROPHILS # (AUTO) 31.1 /CMM (1.8-8.9); NEUTROPHILS % (AUTO) 95.8 % (43.0-81.0); PLATELET COUNT (AUTO) 109 /CMM (150-450); RED BLOOD CELL COUNT(AUTO) 3.27 MIL/uL (4.5-6.0)
[2019-12-17 04:42] LABS: IRON, SERUM 24 ug/dl (50-175)
[2019-12-17 04:49] LABS: ALANINE AMINOTRANSFERASE 7 U/L (12-78); ALKALINE PHOSPHATASE 250 U/L (46-116); ASPARTATE AMINOTRANSFERASE 30 U/L (15-37); BILIRUBIN,TOTAL 0.7 mg/dL (0.2-1.0); CALCIUM, SERUM 7.5 mg/dL (8.5-10.1); CARBON DIOXIDE 16 mmol/L (21-32); CHLORIDE 103 mmol/L (98-107); CREATININE 3.6 mg/dL (0.6-1.3); GLUCOSE 100 mg/dL (74-106); MAGNESIUM 1.6 mg/dL (1.8-2.4); PHOSPHORUS 7.9 mg/dL (2.5-4.9); POTASSIUM 3.7 mmol/L (3.5-5.1); SODIUM SERUM 137 mmol/L (136-145); TOTAL PROTEIN, SERUM 5.1 g/dL (6.4-8.2)
[2019-12-17 05:05] LABS: ALBUMIN 0.8 g/dL (3.4-5.0); UREA NITROGEN, BLOOD 97 mg/dL (7-18)
[2019-12-17 05:15] LABS: TOTAL IRON BINDING CAPACITY < 36 ug/dl (250-450)
[2019-12-17 05:21] LABS: FERRITIN 2952 ng/mL (8-388)
[2019-12-17 05:32] LABS: WHITE BLOOD COUNT (AUTO) 32.4 K/uL (4.3-11.0)
[2019-12-17 05:43] LABS: BAND % (MANUAL) 19 % (0.0-5.0); LYMPHOCYTES % (MANUAL) 2 % (16-48); NEUTROPHILS % (MANUAL) 76 (42-76)
[2019-12-17 05:44] LABS: MONOCYTES % (MANUAL) 3 % (0-11.0)
--- NOTE | 2019-12-17 06:00 | NUR ---
Chest tube #1, (lower right lateral)= 10 ml. , Chest tube # 2(right lateral upper)= 200 ml serous, chest tube # 2 still with air leak
[2019-12-17] MEDS: PHENYLEPHRINE 100 MG in IV NS 0.9% 240 ML IV PRN ×3 (07:21→21:30)
[2019-12-17] MEDS: ZINC SULFATE 220 MG CAPSULE PO SCH (07:58)
[2019-12-17] MEDS: PANTOPRAZOLE 40 MG/PACK PACK NG SCH (07:58)
[2019-12-17] MEDS: CLOPIDOGREL BISULFATE 75 MG TABLET PO SCH (08:00)
[2019-12-17] MEDS: MEROPENEM 500 MG in IV NS 0.9% 50 ML IV SCH ×2 (08:00→21:28)
[2019-12-17] MEDS: PROSOURCE / PROSTAT (PYXIS) 30 ML UDC GT SCH (08:00)
--- NOTE | 2019-12-17 08:00 | NUR ---
No sedation vacation per Dr. Gayle
[2019-12-17 08:44] LABS: ABG BASE EXCESS -16.2 mmol/L; ABG OXYGEN SATURATION 96.1 % (92.0-98.5); ABG PCO2 37.6 mmHg (35.0-45.0); ABG PH 7.124 (7.350-7.450); ABG PO2 97.8 mmHg (75.0-100.0); AaDO2 505.4 mmHg; COHb 0.3 % (0.5-1.5); MetHb 0.4 % (0.0-1.5); O2Hb 95.4 % (94.0-97.0); PEEP,BG 8 cm H2O; SITE, ABG Left Radial; VT, ABG 600 mL
[2019-12-17] MEDS ORDERED: SODIUM BICARBONATE SYR 50 MEQ/50 ML DISP.SYRIN IV ONE ×2 (09:30)
[2019-12-17] MEDS: SODIUM BICARBONATE SYR 150 MEQ in IV D5W 1,000 ML IV PRN (10:00)
[2019-12-17] MEDS: NOREPINEPHRINE 32 MG in IV NS 0.9% 218 ML IV PRN ×2 (13:35→22:42)
[2019-12-17] MEDS: NEPRO 1,000 ML BOTTLE GT PRN (18:15)
[2019-12-17] MEDS: TAMSULOSIN 0.4 MG CAP.SR.24H PO SCH (18:16)
[2019-12-17] MEDS: DAKINS QUARTER STRENGTH (0.125%) 480 ML BOTTLE TOP SCH (18:17)
--- NOTE | 2019-12-17 19:00 | NUR ---
RECEIVED PATIENT WITH TRACHE TO THE VENTILATOR OPN AC MODE ,TACHYPNEIC WITH LABORED BREATHING,WITH DEEP INSPIRATORY EFFORT,SATURATING IN THE LOW 90'S ON A 100 % FIO2.SEDATED ON PROPOFOL DRIP ,NO MOVEMENT,+ SLIGHT COUGH ON SUCTIONING BUT OTHERWISE VERY MINIMAL RESPONSE. ON LEVOPHED DRIP AND NEOSYNEPHRINE DRIP FOR BP SUPPORT. STARTED ON NACHO3 DRIP TODAY DUE TO PH=7.1. ALL DRIPS INFUSING VIA PICC LINE VIA CANDIDO WITH GOOD BLOOD RETURN .WITH ON GOING TUBE FEEDING VIA G TUBE,ASPIRATION PRECAUTION OBSERVED,WILL MONITOR FEEDING RESIDUALS. NOTED TO BE IN AFIB (STARTED TOADY PER DAY SHIFT RN),WITH RVR 120'S-130'S, UP TO 140'S OCCASIONALLY BUT NOT SUSTAINING IN THE 140'S.WILL CLOSELY MONITOR.
--- NOTE | 2019-12-17 19:34 | NUR ---
DRY SANDER Shift Summary Patient is sedated at this time. Responds only to deep pain with increase in HR. No facial expressions, groaning or movement noted. Extremities flaccid and edematous. Pale appearing. HR afib/ST/SR with HR 90-130s. Thompson output this shift 25ml. Dialysis done today. 0 mL out. Diarrhea noted - stool OB collected. Wound care per orders, turn per protocol. CANDIDO PICC infusing jigna@3mcg/kg/min, levo@0.6mcg/kg/min, propofol@50mcg/kg/min, d5w w/ bicarb@75mL/hr (in addition to 2 amps bicarb given this am). R upper chest tube (chest tube #2) bubbles then stops bubbling with inspiration/ventilation -> output 150mL this shift. R mid ax/lower chest tube not bubbling at all -> No output this shift. During bed bath in the evening, patient desaturated to SPO 80s. FiO2 increased to 100% and SBP 58. Levo increased. Today, patient's step son, Cristóbal Guerra from [place] (who Cristóbal, son, from [facility], authorized to make all the decisions) spoke at length with Dr. Simpson, Dr. Gayle and Cricket Funk DNP. He wants everything done, declines to make Mr. Madrigal DNR, the risk of broken ribs during compressions was explained and understood.
--- NOTE | 2019-12-17 19:46 | NUR ---
PT RECEIVED TRACHED SHILEY 8 ON MECHANICAL VENTILATION WITH NOTED SETTINGS. SX DONE, TRACH SECURED AND PATENT. ALARMS ON AND AUDIBLE. PT HEART RATE IS ELEVATED . WILL CONTINUE TO MONITOR THE PT T/O SHIFT.
[2019-12-17 20:29] LABS: OCCULT BLOOD STOOL NEGATIVE (NEGATIVE)
--- NOTE | 2019-12-17 20:40 | NUR ---
RESPONDED,UPDATED HER ON PATIENT'S UNSTABLE CONDITION AND REFERRED ABOUT AFIB WITH RVR WHICH PATIENT HAD AN EPISODE BEFORE( 12/12/1999AND WAS PLACED ON AMIODARONE DRIP,AT FIRST ORDERED CARDIZEM BOLUS BUT PATIENT IS HYPOTENSIVE ON 2 PRESSORS,ORDERED AMIODARONE DRIP INSTEAD (NO BOLUS).
[2019-12-17] MEDS ORDERED: VANCOMYCIN 0.75 GM in IV D5W 250 ML IV SCH (21:00)
[2019-12-17] MEDS: HEPARIN SODIUM, PORCINE 5000 UNITS/1 ML VIAL SQ SCH (21:54)
--- NOTE | 2019-12-17 22:00 | NUR ---
REMANIS UNSTABLE,BP LABILE WITH SBP 80'S -90'S, CONTINUE TO TITRATE LEVOPHED DRIP UP,NEOSYNEPHRINE ALREADY MAX DOSE.HEART RATE STILL HIGH 120'S-130'S AT TIMES 140'S ,STILL ATRIAL FIB..ALSO REMAINS TACHYPNEIC AND LABORED BREATHING(UNABLE TO INCREASE SEDATION DUE TO HYPOTENSION).
--- NOTE | 2019-12-17 22:30 | NUR ---
HEART RATE STILL 120'S-140'S, NOT SUSTAINING BUT BECOMING MORE FREQUENT AND BECOMING MORE HYPOTENSIVE.CALLED MD TO REFER HEART RATE,AWAITING RESPONSE.
[2019-12-17] MEDS ORDERED: AMIODARONE 150 MG/3 ML VIAL IV ONE (22:51)
[2019-12-17] MEDS ORDERED: AMIODARONE 450 MG in IV D5W 241 ML IV PRN (23:00)
--- NOTE | 2019-12-17 23:00 | NUR ---
STARTED AMIODARONE DRIP @ 1 MG/MIN. BP STILL LOW ,LEVOPHED DRIP NOW AT MAX DOSE 1 MCG/KG/MIN
[2019-12-18] VITALS (92 sets, daily range): BP systolic 72–141; BP diastolic 22–67
--- NOTE | 2019-12-18 02:00 | NUR ---
HEART RATE MORE CONTROLLED 110'S-120'S, BP MORE STABLE BUT BOTH ON MAX DOSE PRESSORS,WILL TRY TO WEAN DOWN LEVOPHED TOLERATED.
[2019-12-18] MEDS: PROPOFOL 100 ML IV PRN ×4 (02:12→17:23)
[2019-12-18] MEDS: PHENYLEPHRINE 100 MG in IV NS 0.9% 240 ML IV PRN ×2 (02:13→08:45)
[2019-12-18] MEDS: SEVELAMER CARBONATE 0.8 GM POWD.PACK GT SCH ×3 (02:16→17:20)
[2019-12-18] MEDS: METRONIDAZOLE 500MG/ NS 100ML 500 MG in PREMIX 1 EA IV SCH ×3 (02:16→17:23)
[2019-12-18] MEDS: SODIUM BICARBONATE SYR 150 MEQ in IV D5W 1,000 ML IV PRN (02:56)
[2019-12-18] MEDS ORDERED: AMIODARONE 150 MG/3 ML VIAL IV ONE (03:33)
[2019-12-18] MEDS: NOREPINEPHRINE 32 MG in IV NS 0.9% 218 ML IV PRN ×3 (04:36→19:51)
[2019-12-18 04:43] LABS: CALCIUM, SERUM 7.3 mg/dL (8.5-10.1); CARBON DIOXIDE 20 mmol/L (21-32); CHLORIDE 99 mmol/L (98-107); GLUCOSE 146 mg/dL (74-106); POTASSIUM 3.1 mmol/L (3.5-5.1); SODIUM SERUM 135 mmol/L (136-145); UREA NITROGEN, BLOOD 72 mg/dL (7-18)
--- NOTE | 2019-12-18 05:00 | NUR ---
AMIODARONE DRIP DOWN TO 0.5 MG/MIN. , HEART RATEIN THE LOW 100,S ,CONVERTED TO SINUS
[2019-12-18] MEDS: DILTIAZEM HCL 30 MG TABLET NG SCH ×3 (06:00→17:23)
--- NOTE | 2019-12-18 06:00 | NUR ---
CARDIZEM HELD ,PATIENT IS ON AMIODARONE DRIP
--- NOTE | 2019-12-18 06:00 | NUR ---
CHEST TUBE #1 !(RIGHT LOWER LATERAL DRAINED=20 ML),CHEST TUBE # 2(RIGHT LATERAL UPPER) DRAINED =100 ML.
--- NOTE | 2019-12-18 07:00 | NUR ---
HEMODIALYSIS JUST CAME TO DIALYZED PATIENT.REPORT GIVEN TO RADHA DOZIER
--- NOTE | 2019-12-18 08:00 | NUR ---
agricultural aircraft pilot received pt form pm nurse, pt on vent settings noticed rr 30s sat 85-91 on 100% o2 peep 8, chest tubes present one w/ air bubbles and fluctuation h2o, they are both secured and connected to low suction, iv access patent filemon and foot, pt on pressors and propofol, pt is being dialyse at thsit time, provided sedation vacation pt is unresponsive obtunded does not follow, pt is on propofol for confort and optimal respiration rate, will continue low dose propofol for comfort and safety, md Smiley esteves and Eduarda at bedside, orders recived, will continue to monitor.
[2019-12-18] MEDS: PROSOURCE / PROSTAT (PYXIS) 30 ML UDC GT SCH (08:05)
[2019-12-18] MEDS: MEROPENEM 500 MG in IV NS 0.9% 50 ML IV SCH ×2 (08:06→20:30)
[2019-12-18] MEDS: PANTOPRAZOLE 40 MG/PACK PACK NG SCH (08:06)
[2019-12-18] MEDS: ZINC SULFATE 220 MG CAPSULE PO SCH (08:07)
[2019-12-18] MEDS: CLOPIDOGREL BISULFATE 75 MG TABLET PO SCH (08:08)
[2019-12-18] MEDS: HEPARIN SODIUM, PORCINE 5000 UNITS/1 ML VIAL SQ SCH ×2 (08:08→20:33)
--- NOTE | 2019-12-18 09:00 | NUR ---
agricultural research technologist provided pt sedation vacation pt is obtunded, resumed propofol minimal dose to control pt comfort and rr rate, dr. murdock is aware will continue to monitor.
[2019-12-18 09:15] LABS: ABG OXYGEN SATURATION 87.1 % (92.0-98.5); ABG PCO2 40.4 mmHg (35.0-45.0); ABG PH 7.217 (7.350-7.450); ABG PO2 60.8 mmHg (75.0-100.0); AaDO2 611.8 mmHg; COHb 0.3 % (0.5-1.5); MetHb 0.6 % (0.0-1.5); O2Hb 86.3 % (94.0-97.0); PEEP,BG 8 cm H2O; SITE, ABG Left Femoral; VT, ABG 600 mL
--- NOTE | 2019-12-18 11:01 | NUR ---
ORACLE ETL DEVELOPER contacted pt's JACOBY Pederson in regards to a bioethics meeting. Per JACOBY Pederson, he spoke with pt's amy Hernandez, who is collaborating with other family members and will follow up regarding changing pt's status to DNR. ORACLE ETL DEVELOPER to f/u with JACOBY Pederson later this afternoon.
[2019-12-18] MEDS ORDERED: VANCOMYCIN 0.75 GM in IV D5W 250 ML IV SCH ×2 (14:00→21:00)
--- NOTE | 2019-12-18 15:05 | NUR ---
GREENHOUSE GROWER contacted pt's amy Hernandez and schedule bioethics meeting (via phone) for tomorrow at 10AM. GREENHOUSE GROWER informed Dr. Smith, Dr. Harley, adult protective caseworker Sonali and BRENDAO Jesus regarding the scheduled meeting. Per David, he has been waiting to speak with Dr. Smith.
[2019-12-18] MEDS: TAMSULOSIN 0.4 MG CAP.SR.24H PO SCH (17:21)
[2019-12-18] MEDS: DAKINS QUARTER STRENGTH (0.125%) 480 ML BOTTLE TOP SCH (17:30)
--- NOTE | 2019-12-18 18:07 | NUR ---
corporate legal intern held gt feeding at 0800 residual over 200ml, received call from dietary to hold feeding at 1300 as pt map is not sufficent for feeding, resumed gt feeding at 1800 as residual is only 10cc, no distress noted during recover, pt is only on 1 pressor at this time vs stable pt condition is still guarded, pt needs meet will give report to pm nurse for continuity of care.
--- NOTE | 2019-12-18 19:30 | NUR ---
INTERNATIONAL PROJECT ENGINEER RCD PT W/DX PNA. RESP FAIL. PT IS SEDATED ON DIPRIVAN AT 20 MCG/KG/MIN. NSR ON MONITOR. ON LEVOPHED AT 0.5 MCG/KG/MIN. SHILEY 8 W/SUTURES IN PLACE ON AC 32 600 100% +10; RENDERED ORAL CARE PT HAS THICK FROTHY SECRETIONS. PT W/TWO CHEST TUBES TO RIGHT SIDE. SECURED; CLAMP AT BEDSIDE. GTUBE W/NEPRO AT 40 ML/HR; 5 ML RESIDUAL AT THIS TIME. PT NOTED TO HAVE LARGE BOWEL MOVEMENT. NO URINE OUTPUT NOTED IN BATISTA CATH AT THIS TIME. SACRAL DECUB W/DRESSING C/D/I. BLISTER NOTED TO ABD AREA. REDNESS TO BL EARS. PENIS WAS VERY DIRTY; PROVIDED SKIN CARE REMOVED BROWN AND WHITE DISCHARGE. PENIS NOTED TO HAVE RED/PURPLE/WHITE DISCOLORATIONS. REQUESTED WOUND CONSULT. TURN AND REPOSITION PT. PENDING BIOETHIC COMMITTEE MEETING IN AM.
--- NOTE | 2019-12-18 21:30 | NUR ---
SNACK BAR ATTENDANT LEVOPHED TITRATED UP TO 0.6 MCG/KG/MIN; BP 72/38. CONTINUE TO MONITOR.
[2019-12-18] MEDS: IV NS 0.9% 250 ML IV PRN (22:00)
--- NOTE | 2019-12-18 22:00 | NUR ---
DRILL RUNNER HELPER LEVOPHED TITRATED UP TO 0.87 MCG/KG/MIN; BP 85/51. CONTINUE TO MONITOR. Addendum: 12/19/19 at 0329 by KELLY URENA RN 0.7 MCG/KG/MIN
[2019-12-19] VITALS (95 sets, daily range): BP systolic 57–148; BP diastolic 28–76
[2019-12-19] MEDS: DILTIAZEM HCL 30 MG TABLET NG SCH ×2 (00:55→06:03)
[2019-12-19] MEDS: METRONIDAZOLE 500MG/ NS 100ML 500 MG in PREMIX 1 EA IV SCH ×3 (01:00→17:38)
[2019-12-19] MEDS: SEVELAMER CARBONATE 0.8 GM POWD.PACK GT SCH ×3 (01:00→17:38)
--- NOTE | 2019-12-19 02:00 | NUR ---
TUNNEL DRIER OPERATOR LEVOPHED TITRATED UP TO 0.8 MCG/KG/MIN; BP 83/60. CONTINUE TO MONITOR.
[2019-12-19] MEDS: NOREPINEPHRINE 32 MG in IV NS 0.9% 218 ML IV PRN ×4 (03:35→22:38)
[2019-12-19] MEDS: PROPOFOL 100 ML IV PRN ×3 (03:35→17:38)
[2019-12-19 04:15] LABS: BASOPHILS # (AUTO) 0.1 /CMM (0.0-0.2); BASOPHILS % (AUTO) 0.3 % (0.0-2.0); EOSINOPHILS % (AUTO) 0.1 % (0.0-6.0); HEMATOCRIT 29 % (39-51); HEMOGLOBIN 8.9 g/dL (13.5-17.5); LYMPHOCYTES # (AUTO) 1.8 /CMM (0.8-4.8); LYMPHOCYTES % (AUTO) 5.6 % (20.0-44.0); MEAN CORPUSCULAR HGB CONC 31 g/dl (31.0-36.0); MEAN CORPUSCULAR VOLUME 95 fL (80-96); MONOCYTES # (AUTO) 0.5 /CMM (0.1-1.30); MONOCYTES % (AUTO) 1.4 % (2.0-12.0); NEUTROPHILS # (AUTO) 29.5 /CMM (1.8-8.9); NEUTROPHILS % (AUTO) 92.6 % (43.0-81.0); PLATELET COUNT (AUTO) 89 /CMM (150-450); RED BLOOD CELL COUNT(AUTO) 3.05 MIL/uL (4.5-6.0)
[2019-12-19 04:39] LABS: ALANINE AMINOTRANSFERASE 8 U/L (12-78); ALKALINE PHOSPHATASE 381 U/L (46-116); ASPARTATE AMINOTRANSFERASE 49 U/L (15-37); BILIRUBIN,TOTAL 1.2 mg/dL (0.2-1.0); CALCIUM, SERUM 7.4 mg/dL (8.5-10.1); CARBON DIOXIDE 18 mmol/L (21-32); CHLORIDE 99 mmol/L (98-107); CREATININE 2.9 mg/dL (0.6-1.3); GLUCOSE 95 mg/dL (74-106); MAGNESIUM 1.6 mg/dL (1.8-2.4); PHOSPHORUS 6.9 mg/dL (2.5-4.9); POTASSIUM 3.2 mmol/L (3.5-5.1); SODIUM SERUM 135 mmol/L (136-145); TOTAL PROTEIN, SERUM 5.3 g/dL (6.4-8.2); UREA NITROGEN, BLOOD 73 mg/dL (7-18)
[2019-12-19 04:46] LABS: WHITE BLOOD COUNT (AUTO) 31.9 K/uL (4.3-11.0)
[2019-12-19 04:50] LABS: ALBUMIN 0.8 g/dL (3.4-5.0)
[2019-12-19 06:54] LABS: BAND % (MANUAL) 7 % (0.0-5.0); LYMPHOCYTES % (MANUAL) 3 % (16-48); METAMYELOCYTES % 2 % (0-0); MONOCYTES % (MANUAL) 6 % (0-11.0); MYELOCYTES % 1 % (0-0); NEUTROPHILS % (MANUAL) 81 (42-76)
[2019-12-19] MEDS: ZINC SULFATE 220 MG CAPSULE PO SCH (07:24)
[2019-12-19] MEDS: PANTOPRAZOLE 40 MG/PACK PACK NG SCH (07:24)
[2019-12-19] MEDS: CLOPIDOGREL BISULFATE 75 MG TABLET PO SCH (07:24)
[2019-12-19] MEDS: PROSOURCE / PROSTAT (PYXIS) 30 ML UDC GT SCH (07:26)
[2019-12-19] MEDS: HEPARIN SODIUM, PORCINE 5000 UNITS/1 ML VIAL SQ SCH ×2 (07:26→21:30)
[2019-12-19] MEDS: MEROPENEM 500 MG in IV NS 0.9% 50 ML IV SCH ×2 (07:28→21:31)
--- NOTE | 2019-12-19 08:00 | NUR ---
agricultural research director received pt in bed vent trach settings noticed, pt on 100% fio2 with peep 10, x2 chest tube present, checked line for kinks and patency connected to low suctioning, yusuf patent w/ 0 urine output, iv accesses patent infusing pressor and propofol as ordered, provided sedation vacation pt is obtunded pupils are fixed +2 no reaction, no gag reflex noted, no response to painful stimuli, pt is afib 110s on the monitor. Dr. Bojorquez at bedside no new orderes, turn and repositioned pt in bed provided oral and trach care, safety measures taken will continue to monitor.
--- NOTE | 2019-12-19 08:03 | NUR ---
WOUND CARE CONSULT: RECEIVED CONSULT FOR INTACT BLISTERS ON CHEST WALL AREA. DEFER TO SURGICAL TEAM CURRENTLY ON CASE. SURGICAL TEAM AWARE OF CONSULT. WILL SEE PRN.
[2019-12-19] MEDS: PHENYLEPHRINE 100 MG in IV NS 0.9% 240 ML IV PRN (08:26)
[2019-12-19 08:54] LABS: ABG BASE EXCESS -10.8 mmol/L; ABG OXYGEN SATURATION 91.7 % (92.0-98.5); ABG PCO2 44.1 mmHg (35.0-45.0); ABG PH 7.197 (7.350-7.450); ABG PO2 76.3 mmHg (75.0-100.0); AaDO2 592.6 mmHg; COHb 0.3 % (0.5-1.5); MetHb 0.5 % (0.0-1.5); PEEP,BG 10 cm H2O; SITE, ABG Left Radial; VENT MODE, BG AC 100%; VT, ABG 600 mL
[2019-12-19] MEDS ORDERED: POTASSIUM CHLORIDE 20 MEQ POWDER PACKET GT SCH (09:00)
[2019-12-19] MEDS: Magnesium 1GM/D5W 100ML PREMIX 100 ML IV SCH ×2 (09:10→10:06)
--- NOTE | 2019-12-19 10:43 | NUR ---
Bioethics phone conference was held today at 10AM with ptDen Hernandez, Dr. Smith, JESS Lee, Dr. Funk, case management team and SW. Ptmichael reyes agreed to change code status to DNR. All parties involved are aware. PtDens amy Hernandez to discuss the poor diagnosis with pt's and son and f/u.
--- NOTE | 2019-12-19 10:51 | NUR ---
horticultural therapist orders received by Cricket HORSE SHOW MANAGER for DNR order will change code status and monitor pt
--- NOTE | 2019-12-19 13:31 | NUR ---
RT NOTE PT RCVD JEANNINE'D ON MECHANICAL VENT WITH CHARTED SETTINGS. SX DONE. PT TRACH IS PATENT AND SECURE. VENT ALARMS ARE ON AND AUDIBLE. VENT PLUGGED INTO RED OUTLET. AMBU BAG AT BEDSIDE. Addendum: 12/19/19 at 1332 by JESUS ORTEGA RT Amended: Links added.
[2019-12-19] MEDS ORDERED: VASOPRESSIN INJ 40 UNIT in IV NS 0.9% 38 ML IV PRN (14:30)
[2019-12-19] MEDS: NEPRO 1,000 ML BOTTLE GT PRN (17:36)
[2019-12-19] MEDS: DAKINS QUARTER STRENGTH (0.125%) 480 ML BOTTLE TOP SCH (17:45)
--- NOTE | 2019-12-19 19:36 | NUR ---
RIGHT OF WAY WORKER RCD PT W/DX PNA. RESP FAIL. PT IS SEDATED ON DIPRIVAN AT 20 MCG/KG/MIN. NSR ON MONITOR. ON LEVOPHED AT 0.6 MCG/KG/MIN. CHAUNCEYLEY 8 W/SUTURES IN PLACE ON AC 32 650 100% +10; RENDERED ORAL CARE PT HAS THICK FROTHY SECRETIONS. PT W/TWO CHEST TUBES TO RIGHT SIDE. SECURED; CLAMP AT BEDSIDE. GTUBE W/NEPRO AT 40 ML/HR; NO RESIDUAL AT THIS TIME. NO URINE OUTPUT NOTED IN BATISTA CATH AT THIS TIME. SACRAL DECUB W/DRESSING C/D/I. REDNESS TO BL EARS. PT NOW DNR/DNI. CONTINUE TO MONITOR.
--- NOTE | 2019-12-19 20:00 | NUR ---
CRYPTOGRAPHIC CENTER SPECIALIST PT HEMODYNAMICALLY UNSTABLE TO BE REPOSITIONED AT THIS TIME. CONTINUE TO MONITOR.
--- NOTE | 2019-12-19 20:25 | NUR ---
BRINE MIXER OPERATOR PT NOTED TO BE DESATURATING TO 85-88% ON MONITOR DESPITE BEING ON 100% FIO2. ALSO NOTED HR DROPPED TO MID 30s NON SUSTAINED. INFORMED MD W/NEW ORDERS RECEIVED. RT NOTIFIED TO MAKE VENT CHANGES.
--- NOTE | 2019-12-19 20:30 | NUR ---
HEALTHCARE ADMINISTRATION INTERN LEVOPHED INCREASED TO 1 MCG/KG/MIN PER PROTOCOL. CONTINUE TO MONITOR.
--- NOTE | 2019-12-19 20:33 | NUR ---
RT NOTE PATIENT RECEIVED TRACHED AND ON MECHANICAL VENT. ALARMS VERIFIED AND AUDIBLE. VENT PLUGGED INTO RED OUTLET. EVIEU JADE AT [facility]. WILL CONTINUE TO MONITOR T/O SHIFT. Addendum: 12/19/19 at 2032 by SHERLYN ABRAMS RT Amended: Links added.
--- NOTE | 2019-12-19 21:05 | NUR ---
RT NOTE INCREASED PEEP TO +14 PER MD ORDERS D/T SATURATION DECREASING BELOW 92%. PIP 60+ WHILE PT WAS ON PEEP OF +14. RETURNED TO PEEP OF +10 D/T PT NOT ABLE TO TOLERATE CHANGE SPO2 CURRENTLY BETWEEN 89-92%. JACOBY MENDOZA AWARE. WILL CONTINUE TO MONITOR T/O SHIFT
[2019-12-20] VITALS (62 sets, daily range): BP systolic 71–149; BP diastolic 32–66
[2019-12-20] MEDS: METRONIDAZOLE 500MG/ NS 100ML 500 MG in PREMIX 1 EA IV SCH ×3 (01:59→17:22)
[2019-12-20] MEDS: PROPOFOL 100 ML IV PRN ×4 (01:59→17:31)
[2019-12-20] MEDS: SEVELAMER CARBONATE 0.8 GM POWD.PACK GT SCH ×3 (02:00→17:23)
[2019-12-20] MEDS: NOREPINEPHRINE 32 MG in IV NS 0.9% 218 ML IV PRN ×4 (03:41→19:43)
--- NOTE | 2019-12-20 04:00 | NUR ---
ACCOUNT OFFICER COMPUTER PROGRAMMING PROFESSOR UNABLE TO DRAW PT. WILL ENDORSE TO NEXT SHIFT.
--- NOTE | 2019-12-20 06:37 | NUR ---
BUSINESS MANAGEMENT MANAGER PT REMAINED UNSTABLE FOR TURNING AND REPOSITIONING. ATTEMPTED TO REPOSITION PT AND BP DROPPED. SATURATION DROPPED. CONTINUE TO MONITOR PT.
--- NOTE | 2019-12-20 06:58 | NUR ---
ROAD TEST EXAMINER PT WITHOUT ANY URINE OUTPUT. NO OUTPUT FROM CHEST TUBES WELL.
--- NOTE | 2019-12-20 07:53 | NUR ---
RN NOTES RECEIVED PATIENT RESTING IN BED COMFORTABLY. PT IS OBTUNDED, NON-VERBAL, AND BEDBOUND. HE IS ON MECH VENT VIA TRACH, AC 32, TV 600, FIO2 100%, AND PEEP OF 14. HE IS ON DIPRIVAN DRIP AT 20 MCG/MIN AND ON LEVO AT 1 MCG/MIN. IV SITE ON CANDIDO PICC, R FOOT 18G, AND R GROIN HD CATH ARE PATENT AND INTACT. GTUBE IS PATENT ADN INTACT, RUNNIGN NEPRO AT 40 ML/HR, NO RESIDUAL. CONTACT AND DROPLET ISO HAVE BEEN IMPLEMENTED AND ENFORCED FOR COVID. WOUND PRESENT, WILL ADDRESS PER WOUND CARE PLAN. SAFETY MEASURES HAVE BEEN IMPLEMENTED, CALL LIGHT IS WITHIN REACH, BED IS IN LOWEST AND LOCKED POSITION, SIDE RIALS UP X2, WILL CONTINUE TO MONITOR FOR ANY CHANGES.
[2019-12-20] MEDS: ZINC SULFATE 220 MG CAPSULE PO SCH (08:43)
[2019-12-20] MEDS: PANTOPRAZOLE 40 MG/PACK PACK NG SCH (08:43)
[2019-12-20] MEDS: HEPARIN SODIUM, PORCINE 5000 UNITS/1 ML VIAL SQ SCH ×2 (08:45→20:31)
[2019-12-20] MEDS: PROSOURCE / PROSTAT (PYXIS) 30 ML UDC GT SCH (08:47)
[2019-12-20] MEDS: MEROPENEM 500 MG in IV NS 0.9% 50 ML IV SCH ×2 (08:47→20:30)
[2019-12-20 09:42] LABS: CALCIUM, SERUM 6.9 mg/dL (8.5-10.1); CARBON DIOXIDE 14 mmol/L (21-32); CHLORIDE 99 mmol/L (98-107); CREATININE 3.2 mg/dL (0.6-1.3); GLUCOSE 105 mg/dL (74-106); POTASSIUM 3.8 mmol/L (3.5-5.1); SODIUM SERUM 133 mmol/L (136-145)
[2019-12-20 09:43] LABS: UREA NITROGEN, BLOOD 83 mg/dL (7-18)
[2019-12-20 10:09] LABS: ABG BASE EXCESS -14.5 mmol/L; ABG OXYGEN SATURATION 88.9 % (92.0-98.5); ABG PCO2 38.7 mmHg (35.0-45.0); ABG PH 7.155 (7.350-7.450); ABG PO2 70.2 mmHg (75.0-100.0); AaDO2 604.1 mmHg; COHb 0.3 % (0.5-1.5); MetHb 0.4 % (0.0-1.5); O2Hb 88.3 % (94.0-97.0); SITE, ABG Left Brachial; VENT MODE, BG AC 32 650 100% +10
[2019-12-20] MEDS ORDERED: SODIUM BICARBONATE SYR 50 MEQ/50 ML DISP.SYRIN IV ONE (10:30)
--- NOTE | 2019-12-20 10:30 | NUR ---
RN NOTES ABG RESULTS RELAYED TO DR. SANDERSON. RECEIVED ORDERS FOR 2 AMPULE BICARB X1 NOW FOLLOWED BY 3 AMPULE BICARB DRIP, WILL CONTINUE TO MONITOR
[2019-12-20] MEDS: SODIUM BICARBONATE SYR 150 MEQ in IV D5W 1,000 ML IV PRN ×2 (11:41→22:51)
[2019-12-20 14:51] LABS: ABG BASE EXCESS -11.5 mmol/L; ABG PCO2 35.1 mmHg (35.0-45.0); ABG PH 7.244 (7.350-7.450); ABG PO2 78.5 mmHg (75.0-100.0); AaDO2 599.4 mmHg; MetHb 0.3 % (0.0-1.5); O2Hb 93.7 % (94.0-97.0); SITE, ABG Right Radial; VENT MODE, BG AC 32 650 100% +10
[2019-12-20] MEDS ORDERED: VANCOMYCIN 500 MG in IV D5W 100 ML IV PRN (15:00)
[2019-12-20] MEDS: DAKINS QUARTER STRENGTH (0.125%) 480 ML BOTTLE TOP SCH (17:25)
--- NOTE | 2019-12-20 19:15 | NUR ---
RN CLOSING NOTES PATIENT IS RESTING IN BED COMFORTABLY, NO S.SX OF DISTRESS AT THIS TIME. PT ON [facility] VENT VIA SHILEY 8 TRACH, TOLERATING SETTINGS. PT NEEDS HAVE BEEN MET, NO ACUTE CHANGES OCCURRED THOROUGHOUT THE SHIFT. CONTACT AND DROPLET ISO HAVE BEEN IMPLEMENTED AND ENFORCED. SAFETY MEASURES HAVE BEEN IMPLEMENTED, CALL LIGHT IS WITHIN REACH, BED IS IN LOWEST AND LOCKED POSITION, SIDE RAILS UP X2, PT HAS BEEN ENDORSED TO NIGHTSHIFT RN FOR HAO.
--- NOTE | 2019-12-20 20:00 | NUR ---
Received patient obtunded.DNR/DNI.With trach to vent with prescribed settings.HD in progress HD RN at bedside.Dx: PNA,COVID+,R Pneumothorax with bilateral Chest Tube in place to 20 cm suction.Noted air leaks and draining serosanguineous output.Patient desat to 88%.SR per monitor. Levophed gtt infusing max out.Tolerating gt feeding.FC to gravity oliguric.Droplet/Contact precaution maintained.Call light at bedside.Continue monitoring.
--- NOTE | 2019-12-20 21:00 | NUR ---
Patient had only an hour HD.Unable to tolerate become hypotensive and desat to 80's. Continue monitoring.
[2019-12-21] VITALS (54 sets, daily range): BP systolic 42–140; BP diastolic 31–61
[2019-12-21] MEDS: NOREPINEPHRINE 32 MG in IV NS 0.9% 218 ML IV PRN ×3 (01:19→12:15)
[2019-12-21] MEDS: SEVELAMER CARBONATE 0.8 GM POWD.PACK GT SCH ×2 (01:56→09:04)
[2019-12-21] MEDS: NEPRO 1,000 ML BOTTLE GT PRN (01:57)
[2019-12-21] MEDS: PROPOFOL 100 ML IV PRN (02:01)
[2019-12-21] MEDS: METRONIDAZOLE 500MG/ NS 100ML 500 MG in PREMIX 1 EA IV SCH ×2 (02:01→09:06)
[2019-12-21] MEDS: IV NS 0.9% 250 ML IV PRN (05:02)
[2019-12-21 06:18] LABS: EOSINOPHILS % (AUTO) 5.9 % (0.0-6.0); HEMATOCRIT 26 % (39-51); HEMOGLOBIN 7.8 g/dL (13.5-17.5); LYMPHOCYTES % (AUTO) 15.4 % (20.0-44.0); MEAN CORPUSCULAR HGB CONC 30 g/dl (31.0-36.0); MEAN CORPUSCULAR VOLUME 96 fL (80-96); MONOCYTES # (AUTO) 45.9 /CMM (0.1-1.30); MONOCYTES % (AUTO) 78.2 % (2.0-12.0); NEUTROPHILS # (AUTO) 0.3 /CMM (1.8-8.9); NEUTROPHILS % (AUTO) 0.5 % (43.0-81.0); PLATELET COUNT (AUTO) 53 /CMM (150-450)
[2019-12-21 06:35] LABS: ALANINE AMINOTRANSFERASE 9 U/L (12-78); ALKALINE PHOSPHATASE 337 U/L (46-116); ASPARTATE AMINOTRANSFERASE 57 U/L (15-37); BILIRUBIN,TOTAL 1.7 mg/dL (0.2-1.0); CALCIUM, SERUM 7.4 mg/dL (8.5-10.1); CARBON DIOXIDE 16 mmol/L (21-32); CHLORIDE 98 mmol/L (98-107); CREATININE 3.2 mg/dL (0.6-1.3); GLUCOSE 155 mg/dL (74-106); POTASSIUM 3.8 mmol/L (3.5-5.1); SODIUM SERUM 136 mmol/L (136-145); TOTAL PROTEIN, SERUM 4.7 g/dL (6.4-8.2)
--- NOTE | 2019-12-21 06:40 | NUR ---
Patient remains obtunded.Afebrile.SR.Patient desat to 84%-88%.Secretion suctioned via trach and oral route.Oral care done.AM care done.Wound care done.Was turned and repositioned. Tolerating gt feeding.Diprivan infusing at 20 mcg and Levophed gtt at 0.9 mcg.All needs attended. Will endorse to day shift for clementine.
[2019-12-21 06:47] LABS: WHITE BLOOD COUNT (AUTO) 58.7 K/uL (4.3-11.0)
[2019-12-21 06:52] LABS: ALBUMIN 0.7 g/dL (3.4-5.0); UREA NITROGEN, BLOOD 80 mg/dL (7-18)
--- NOTE | 2019-12-21 07:15 | NUR ---
BUSINESS OPERATIONS CONSULTANT NOTES RECEIVED PATIENT, UNRESPONSIVE ON DIPRIVAN PAIN STIMULI , COUGH / GAG / PUPIL REFLEXES ABSENT , DIPRIVAN HELD , RESPIRATIONS DEEP , LABORED , SPO2 oF 82% VIA MECHANICAL VENT SETTINGS ORDERED ,TRACH OF SHILEY # [address] CLEAN DRY AND INTACT , RIGHT MID AXILLARY CHEST TUBE ATTACHED TO -20MMHG SUCTION DRAINING WITH SEROUS FLUID NOTED , RIGHT UPPER ANTERIOR CHEST TUBE ATTACHED TO -20MMHG SUCTION DRAINING WITH SEROUS FLUID , SR 75 ON BEDSIDE MONITOR , FC IN PLACE NO OUTPUT ,, GT PATENT AND INTACT WITH NEPHRO @40ML/HR TOLERATING WELL WITH NO RESIDUALS , BOWEL SOUND ABSENT , CANDIDO PICC LINE WITH LEVOPHED @0.9MCG/KG/MIN , DIPRIVAN @20MCG/KG/MIN INFUSING WELL , R FEM HD CATH IN PLACE , R FOOT #20 SL , ALL NEEDS ATTENDED , WILL CONTINUE TO MONITOR
--- NOTE | 2019-12-21 07:21 | NUR ---
AM critical lab values WBC=58.7,Platelets =53,Phos=8.0,BUN=80,Albumin=0.7 endorse to day shift RN to follow up referral to MD.
[2019-12-21 07:53] LABS: BAND % (MANUAL) 14 % (0.0-5.0); LYMPHOCYTES % (MANUAL) 2 % (16-48); NEUTROPHILS % (MANUAL) 84 (42-76)
[2019-12-21] MEDS: PANTOPRAZOLE 40 MG/PACK PACK NG SCH (08:28)
[2019-12-21] MEDS: MEROPENEM 500 MG in IV NS 0.9% 50 ML IV SCH (08:28)
[2019-12-21] MEDS: PROSOURCE / PROSTAT (PYXIS) 30 ML UDC GT SCH (08:28)
[2019-12-21] MEDS: ZINC SULFATE 220 MG CAPSULE PO SCH (08:28)
[2019-12-21] MEDS: HEPARIN SODIUM, PORCINE 5000 UNITS/1 ML VIAL SQ SCH (08:29)
[2019-12-21 08:52] LABS: ABG BASE EXCESS -19.2 mmol/L; ABG OXYGEN SATURATION 82.8 % (92.0-98.5); ABG PCO2 48.1 mmHg (35.0-45.0); ABG PH 6.987 (7.350-7.450); ABG PO2 64.4 mmHg (75.0-100.0); AaDO2 600.5 mmHg; COHb 0.7 % (0.5-1.5); MetHb 0.3 % (0.0-1.5); SITE, ABG Left Radial
[2019-12-21] MEDS: SODIUM BICARBONATE SYR 150 MEQ in IV D5W 1,000 ML IV PRN (09:06)
--- NOTE | 2019-12-21 09:28 | NUR ---
OTHER SPATIAL SCIENTIST NOTES SEEN AND EVALUATED BY CORWIN MCCOY AND DR SANDERSON , DISCUSSED PT STATUS , LABS ,ABG , AM critical lab values WBC=58.7,Platelets =53,Phos=8.0,BUN=80,Albumin=0. GSC 3 UNRESPONSIVE OFF DIPRIVAN , NO URINE OUTPUT , HYPOTHERMIC AT 92F , BOWEL , COUGH , GAG REFLEX ARE ABSENT , PUPILS NO REACTION , 3MM DILATED , AWARE RT RELAYED ABG TO DR MARIA E MD AWARE ,
--- NOTE | 2019-12-21 09:30 | NUR ---
APPLICATIONS TRAINER NOTES CALLED STEP SON , DISCUSSED PLAN OF CARE AND PT STATUS . STEPSON AWARE .
--- NOTE | 2019-12-21 12:29 | NUR ---
INSPECTOR FLOOR NOTES NOTIFIED CORWIN KIRKPATRICK QC TECH THAT PT IS ON MAX LEVO AND NEOSYNEPRINE , VERIFIED IF HE WANTS TO ADD ANOTHER PRESSORS , PER NO 3RD PRESSOR , ORDER CARRIED OUT
[2019-12-21] MEDS: PHENYLEPHRINE 100 MG in IV NS 0.9% 240 ML IV PRN (13:26)
--- NOTE | 2019-12-21 13:27 | NUR ---
RN NOTE PT DNR STATUS. PT ASYSTOLIC, APNEIC, AREFLEXIVE. PRONOUNCED AT 1327
--- NOTE | 2019-12-21 13:47 | NUR ---
VENUE ATTENDANT NOTES PT @ 1327 , NO PULSE AND NO AUDIBLE HEART TONES UPON AUSCULTATION , NO CODE CALLED PER CODE STATUS , , PRONOUNCED BY SILVIA LIMA CHARGE NURSE , CALLED ELDA NURSING DEICER INSPECTOR PNEUMATIC , ABBI BENNETTITTING AND CORWIN KIRKPATRICK TO NOTIFY PT , NOTIFIED EMILY LUX (STEPSON REGARDING PATIENT @ 1327 )
--- NOTE | 2019-12-21 14:15 | NUR ---
EMPLOYMENT ADVISOR NOTES CALLED EMILY LUX , NOTIFIED PT HAS BELONGINGS ( PANTS , SHIRT , SHOES , SOCKS , UNDERWEAR , ) PER [facility] THEY WILL NOT TAKE IT HOME , ANTOINE CONSENTED FOR RELEASE OF BODY TO MORTUARY VIA TELEPHONE CONSENT
--- NOTE | 2019-12-21 14:25 | NUR ---
PILE DRIVER OPERATOR HELPER NOTES RECEIVED A CALL FROM [facility] , CM , CASE # [id number] , CASE CLOSE , BODY OK TO RELEASE .
--- NOTE | 2019-12-21 15:26 | NUR ---
HEALTHCARE MANAGEMENT CONSULTANT NOTES BELONGING LIST CHECK , [facility]SFERRED BODY TO [facility] WITH TO SECURITY PERSONAL , CHECK IDENTIFICATION , BODY LABELED WITH CORRECT IDENTIFICATION .
--- NOTE | 2019-12-21 17:08 | NUR ---
BINDER OPERATOR NOTES CALLED KATHERINE MADISON , NOTIFIED [facility] CUTTER HAND
== END 2019-12-21 15:28 | disposition expired | DRG 3 ==
LOC: ER 10:07 → TELE1 13:14 → ICU 11-03 04:10 → ICUOV 12-08 20:29 → ICU 12-09 09:33
PROVIDERS: ADMIT Internal Medicine; ATTEND Nurse Practitioner Acute Care
PROC: 5A1955Z Respiratory Ventilation, Greater than 96 Consecutive Hours (ICD-10-PCS; principal; 2019-11-02)
PROC: 0BH17EZ Insertion of Endotracheal Airway into Trachea, Via Natural or Artificial Opening (ICD-10-PCS; 2019-11-02)
PROC: 02HV33Z Insertion of Infusion Device into Superior Vena Cava, Percutaneous Approach (ICD-10-PCS; 2019-11-04)
PROC: B548ZZA Ultrasonography of Superior Vena Cava, Guidance (ICD-10-PCS; 2019-11-04)
PROC: 06HM33Z Insertion of Infusion Device into Right Femoral Vein, Percutaneous Approach (ICD-10-PCS; 2019-11-08)
PROC: B54BZZA Ultrasonography of Right Lower Extremity Veins, Guidance (ICD-10-PCS; 2019-11-08)
PROC: 5A1D70Z Performance of Urinary Filtration, Intermittent, Less than 6 Hours Per Day (ICD-10-PCS; 2019-11-08)
PROC: 30233P1 Transfusion of Nonautologous Frozen Red Cells into Peripheral Vein, Percutaneous Approach (ICD-10-PCS; 2019-11-25)
PROC: 0KBP0ZZ Excision of Left Hip Muscle, Open Approach (ICD-10-PCS; 2019-12-04)
PROC: 0KBN0ZZ Excision of Right Hip Muscle, Open Approach (ICD-10-PCS; 2019-12-04)
PROC: 0B113F4 Bypass Trachea to Cutaneous with Tracheostomy Device, Percutaneous Approach (ICD-10-PCS; 2019-12-08)
PROC: 0DH63UZ Insertion of Feeding Device into Stomach, Percutaneous Approach (ICD-10-PCS; 2019-12-08)
PROC: 30233K1 Transfusion of Nonautologous Frozen Plasma into Peripheral Vein, Percutaneous Approach (ICD-10-PCS; 2019-12-08)
PROC: 0W9930Z Drainage of Right Pleural Cavity with Drainage Device, Percutaneous Approach (ICD-10-PCS; 2019-12-12)
PROC: 0W9930Z Drainage of Right Pleural Cavity with Drainage Device, Percutaneous Approach (ICD-10-PCS; 2019-12-14)
PROC: 0W9930Z Drainage of Right Pleural Cavity with Drainage Device, Percutaneous Approach (ICD-10-PCS; 2019-12-16)
DX: A41.89 Other specified sepsis (principal); L89.154 Pressure ulcer of sacral region, stage 4; U07.1 COVID-19; J96.01 Acute respiratory failure with hypoxia; J12.89 Other viral pneumonia; I21.A1 Myocardial infarction type 2; R65.21 Severe sepsis with septic shock; E43 Unspecified severe protein-calorie malnutrition; G93.41 Metabolic encephalopathy; N17.0 Acute kidney failure with tubular necrosis; J15.9 Unspecified bacterial pneumonia; B37.49 Other urogenital candidiasis; J44.0 Chronic obstructive pulmonary disease with (acute) lower respiratory infection; E87.2 Acidosis; E87.0 Hyperosmolality and hypernatremia; J93.83 Other pneumothorax; Z66 Do not resuscitate; N40.0 Benign prostatic hyperplasia without lower urinary tract symptoms; Z87.891 Personal history of nicotine dependence; I25.10 Atherosclerotic heart disease of native coronary artery without angina pectoris; E78.5 Hyperlipidemia, unspecified; D72.810 Lymphocytopenia; I11.0 Hypertensive heart disease with heart failure; I50.9 Heart failure, unspecified; D72.829 Elevated white blood cell count, unspecified; D64.9 Anemia, unspecified; D69.6 Thrombocytopenia, unspecified; I48.0 Paroxysmal atrial fibrillation; E88.09 Other disorders of plasma-protein metabolism, not elsewhere classified; Z79.02 Long term (current) use of antithrombotics/antiplatelets; Z87.442 Personal history of urinary calculi; Z68.32 Body mass index [BMI] 32.0-32.9, adult; E83.42 Hypomagnesemia; E86.9 Volume depletion, unspecified; I46.9 Cardiac arrest, cause unspecified
CPT/HCPCS: 31720; 36415; 36569; 36600; 71045-TC; 80048-TC; 80053-TC; 80076-TC; 80202-TC; 81000-TC; 82247-TC; 82248-TC; 82272-TC; 82533; 82550-TC; 82728-TC; 82803-TC; 83540-TC; 83605-TC; 83615-TC; 83735-TC; 83880; 84100-TC; 84478-TC; 84484-TC; 85025-TC; 85378-TC; 85610-TC; 85730-TC; 86140-TC; 86706; 86850-TC; 86921-TC; 87040-TC; 87070-TC; 87086-TC; 87186-TC; 87340; 88304-TC; 88312-TC; 90935-TC; 93307-TC; 94002-TC; 94003-TC; 94640-TC; 94760-TC; 94762-TC; 94799-TC; 99082-TC; A4216; A4217; A4623; A6253; A6403; A7526; C1750; C1751; C9113; G0378; J0282; J0456; J0690; J0692; J0696; J1160; J1644; J1720; J2020; J2060; J2185; J2248; J2270; J2370; J2405; J2704; J2765; J2920; J3370; J3475; J3480; J3490; J7030; J7040; J7042; J7050; J7060; J7070; P9016-BL; P9017-BL; P9047; U0003-CS